=== PATIENT | male | born 1980 | race Hispanic/Latino ===

== ENCOUNTER 2020-04-25 12:40 | Emergency (ER) | payer MEDICARE ==
--- NOTE | 2020-04-25 12:58 | Event Note ---
ED Screening Note ED Screening Note: poor informant via EMS for facial swelling co oral pain states they dont take him to MD-- EMS confirms they don't tend to pt pt cooperative but unable to provide info hx schizophrenia copd severe dental disease- upper/lower; and lesions noted on the roof of mouth I can not visualize well with pt in chair in triage-- need to reeval in room tachycardia and sat 88 on roomair denes sob or cp endorses face and throat pain This initial assessment/diagnostic orders/clinical plan/treatment(s) is/are ramirez bject to change based on patients health status, clinical progression and re- assessment by fellow clinical providers in the ED. Further treatment and workup at subsequent clinical providers discretion. Patient/guardian urged not to elope from the ED as their condition may be serious if not clinically assessed and managed. Initial orders include: labs xray given oxygen saturation
[2020-04-25 13:33] LABS: Basophils # (Auto) 0.1 K/mm3 (0.0-0.1); Basophils % (Auto) 0.6 % (0.0-1.8); Eosinophils # (Auto) 0.4 K/mm3 (0.0-0.4); Eosinophils % (Auto) 3.7 % (0.0-4.3); Hematocrit 47.5 % (35.5-45.6); Hemoglobin 15.4 gm/dl (11.8-15.2); Lymphocytes # (Auto) 1.9 K/mm3 (1.2-5.4); Lymphocytes % (Auto) 16.8 % (13.4-35.0); Mean Corpuscular HGB Conc 33 % (32-34); Mean Corpuscular Volume 95 fl (84-94); Monocytes # (Auto) 1.4 K/mm3 (0.0-0.8); Platelet Count 183 K/mm3 (140-440); Red Blood Count 5.01 M/mm3 (3.65-5.03); Red Cell Distribution Width 15.5 % (13.2-15.2)
[2020-04-25] MEDS ORDERED: SODIUM CHLORIDE 0.9% 1000 ML 1,000 ML IV ONE (14:00)
--- NOTE | 2020-04-25 14:23 | XRay Report ---
CHEST 2 VIEWS INDICATION: cough. COMPARISON: None FINDINGS: Support devices: None. Heart: Within normal limits. Lungs/pleura: No acute air space or interstitial disease. No pneumothorax. Additional findings: None. IMPRESSION: No acute findings. Signer Name: Mario Rowan Jr, MD Signed: 04/25/2020 2:18 PM Workstation Name: [id number]
[2020-04-25 14:27] LABS: Blood Urea Nitrogen 6 mg/dL (9-20); Hemolysis Index 7
[2020-04-25 14:31] LABS: BUN/Creatinine Ratio 9
--- NOTE | 2020-04-25 15:01 | Emergency Department Report ---
<CINDI CRUMP - Last Filed: 04/25/20 18:28> ED General Adult HPI - General Chief complaint: Dental/Oral Stated complaint: MOUTH PAIN Time Seen by Provider: 04/25/20 12:56 - Related Data Allergies Allergy/AdvReac Type Severity Reaction Status Date / Time Sulfa (Sulfonamide Allergy Unknown Verified 04/25/20 18:24 Antibiotics) - ABG Interpretation Ph: 7.34 PCO2: 62 PO2: 49 Bicarbonate: 33 Interpretation: respiratory acidosis (compensated), other (hypoxia) ED Medical Decision Making - Lab Data Result diagrams: 04/25/20 13:08 04/25/20 13:08 - Medical Decision Making 40-year-old male presents to the hospital initially for mouth pain with extension dental caries and was found to be hypoxic and tachycardia. EKG revealed sinus rhythm with heart rate less than 100 without ischemic findings. Chest x-ray unremarkable. D-dimer is negative. ABG reveals a chronic respiratory acidosis with significant room air hypoxia. Patient reports a history of chronic COPD. 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 Patient would need home oxygen arrangement prior to discharge. At time of completion of ED evaluation Case management is not available to arrange for outpatient oxygen for the patient. Possible admission discussed with hospitalist and clinical rx specialist. Since patient does not require admission for anything other than supplemental oxygen arrangement patient will be kept in the ER and provide supplemental oxygen until case management can evaluate patient in the morning for arrangement of home oxygen. If home oxygen cannot be arranged tomorrow and patient requires an additional day in the hospital then should be admitted at that time since he will qualify for inpatient obs admission (2-day hospital stay). Pt placed on 2L Nasal cannula in the ED ED Disposition Clinical Impression: Dental caries, Hypoxia, Smoker, History of schizophrenia, Chronic respiratory acidosis, COPD (chronic obstructive pulmonary disease) Disposition: DC- TO HOME OR SELFCARE Condition: Stable Instructions: Chronic Obstructive Pulmonary Disease (ED) Referrals: KASSY FROST MD [Staff Physician] - 3-5 Days <BRINDA NOBLE - Last Filed: 04/25/20 20:23> ED General Adult HPI - General PUI?: No Source: patient Mode of arrival: Ambulatory Limitations: No Limitations - History of Present Illness Initial comments: 40 YO AA COMES TO ER FROM HIS PERSONAL SNF WITH CO DENTAL PAIN. SPECIFICALLY HIS FRONT LEFT UPPER INCISOR IS CAUSING THE PAIN. IN TRIAGE INITIAL O2 SAT ON ROOM AIR WAS 88. PT ENDORSES INC SOB AND CP; pain is worse with deep breath HR noted to be slightly elevated 110-115 bpm on arrival denies fever or chills PT POOR INFORMANT PT UNABLE TO GIVE ME MUCH HISTORY AND HE HAS BEEN NOT BEEN HERE BEFORE CIG SMOKER DENIES ETOH/DRUGS Pt does NOT KNOW HIS HOME MEDICATIONS AND DOES NOT KNOW IF HE IS ALLERGIC TO ANYTHING. Pt has not been here before and we have no baseline data available -: Gradual, days(s) Severity scale (0 -10): 7 Consistency: intermittent Improves with: none Worsens with: none Associated Symptoms: chest pain Treatments Prior to Arrival: none ED Review of Systems ROS: Stated complaint: MOUTH PAIN Other details as noted in HPI Comment: All other systems reviewed and negative Constitutional: denies: chills, fever ENT: denies: throat pain Respiratory: no symptoms reported, shortness of breath, SOB with exertion, SOB at rest. denies: cough, orthopnea, wheezing Cardiovascular: as per HPI, chest pain (w deep breath) ED Past Medical Hx - Past Medical History Previous Medical History?: Yes Hx Hypertension: Yes Hx Psychiatric Treatment: Yes (SCHIZOPHRENIC/ BIPOLAR) Hx COPD: Yes (per pt) - Surgical History Past Surgical History?: No - Family History Family history: no significant - Social History Smoking Status: Current Every Day Smoker Substance Use Type: None ED Physical Exam - General Limitations: No Limitations General appearance: alert, in no apparent distress - Head Head exam: Present: atraumatic, normocephalic - Eye Eye exam: Present: normal appearance - ENT ENT exam: Present: mucous membranes moist, other (left facial swelling; no tend erness; no abscess; diffuse caries; controlling secretions; voice clear) - Expanded ENT Exam Expanded Ear exam: Present: normal external inspection Mouth exam: Present: other (diffuse cariess). Absent: trismus, muffled voice, tongue normal, tongue elevation Teeth exam: Present: dental caries Throat exam: Positive: normal inspection - Neck Neck exam: Present: normal inspection - Respiratory Respiratory exam: Present: normal lung sounds bilaterally. Absent: respiratory distress - Cardiovascular Cardiovascular Exam: Present: regular rate, normal rhythm. Absent: systolic murmur, diastolic murmur, rubs, gallop - GI/Abdominal GI/Abdominal exam: Present: soft, normal bowel sounds - Rectal Rectal exam: Present: deferred - Extremities Exam Extremities exam: Present: normal inspection - Back Exam Back exam: Present: normal inspection - Neurological Exam Neurological exam: Present: alert, oriented X3 - Psychiatric Psychiatric exam: Present: normal affect, normal mood - Skin Skin exam: Present: warm, dry, intact, normal color. Absent: rash ED Course Vital Signs 04/25/20 04/25/20 04/25/20 12:55 13:08 15:37 Temperature 98.6 F Pulse Rate 111 H 107 H Respiratory 22 20 Rate Blood Pressure Blood Pressure 128/75 [Right] O2 Sat by Pulse 88 91 82 L Oximetry 04/25/20 04/25/20 04/25/20 15:46 16:00 16:04 Temperature Pulse Rate 100 H 105 H Respiratory 18 Rate Blood Pressure 132/77 122/64 Blood Pressure [Right] O2 Sat by Pulse 90 94 94 Oximetry 04/25/20 04/25/20 04/25/20 16:16 16:30 16:46 Temperature Pulse Rate Respiratory 18 Rate Blood Pressure 122/64 122/64 120/71 Blood Pressure [Right] O2 Sat by Pulse 88 90 98 Oximetry 04/25/20 04/25/20 04/25/20 17:00 17:16 17:30 Temperature Pulse Rate 95 H Respiratory Rate Blood Pressure 128/62 119/60 116/71 Blood Pressure [Right] O2 Sat by Pulse 94 96 94 Oximetry 04/25/20 04/25/20 04/25/20 17:46 18:00 18:08 Temperature Pulse Rate 93 H 102 H Respiratory 18 Rate Blood Pressure 107/63 116/49 Blood Pressure [Right] O2 Sat by Pulse 95 93 99 Oximetry 04/25/20 04/25/20 04/25/20 18:16 18:20 18:30 Temperature 98.1 F Pulse Rate 108 H 100 H 98 H Respiratory 18 Rate Blood Pressure 109/44 109/44 122/48 Blood Pressure [Right] O2 Sat by Pulse 93 95 91 Oximetry 04/25/20 18:46 Temperature Pulse Rate 107 H Respiratory Rate Blood Pressure 128/41 Blood Pressure [Right] O2 Sat by Pulse 92 Oximetry - Reevaluation(s) Reevaluation #1: 04/25/20 17:25 CAREGIVER [phone] [facility] SCHIZOPHRENIA SMOKER AND DIPS DAILY HAS BEEN TOLD HE NEEDS HOME O2 BUT HE NEVER HAS GOTTEN IT HAS NO PCP PER CAREGIVER HOME MEDS [facility] PAXIL AND TRAZADONE AT - HE COULD NOT TELL ME DOSES Reevaluation #2: 04/25/[address] CRUMP 04/25/20 18:11 Discussed with admin/WASTEWATER ANALYST LAB ANALYST; pt will be held in ER for case management eval -- given his PaO2 of 48 and no known baseline ED Medical Decision Making - Lab Data Result diagrams: 04/25/20 13:08 04/25/20 13:08 - EKG Data EKG shows normal: sinus rhythm Rate: tachycardia - EKG Data When compared to previous EKG there are: no significant change Interpretation: no acute changes - Radiology Data Radiology results: report reviewed, image reviewed nap - Medical Decision Making 1530 ON REEVAL PT IS TALKING ON PHONE AND IS DRINKING JUICE HE IS CALLING HIS CAREGIVER RN TO RECHECK VS AND PT WILL DISPO Labs 04/25/20 04/25/20 04/25/20 13:08 13:08 13:08 WBC 11.1 H RBC 5.01 Hgb 15.4 H Hct 47.5 H MCV 95 H MCH 31 MCHC 33 RDW 15.5 H Plt Count 183 Lymph % (Auto) 16.8 [place] % (Auto) 13.0 H Eos % (Auto) 3.7 Baso % (Auto) 0.6 Lymph # (Auto) 1.9 [place] # (Auto) 1.4 H Eos # (Auto) 0.4 Baso # (Auto) 0.1 Seg Neutrophils % 65.9 Seg Neutrophils # 7.3 Sodium 142 Potassium 4.2 Chloride 96.8 L Carbon Dioxide 41 H* Anion Gap 8 BUN 6 L Creatinine 0.7 L Estimated GFR > 60 BUN/Creatinine Ratio 9 Glucose 131 H Lactic Acid 1.80 Calcium 9.0 Troponin T 04/25/20 13:08 WBC RBC Hgb Hct MCV MCH MCHC RDW Plt Count Lymph % (Auto) [place] % (Auto) Eos % (Auto) Baso % (Auto) Lymph # (Auto) [place] # (Auto) Eos # (Auto) Baso # (Auto) Seg Neutrophils % Seg Neutrophils # Sodium Potassium Chloride Carbon Dioxide Anion Gap BUN Creatinine Estimated GFR BUN/Creatinine Ratio Glucose Lactic Acid Calcium Troponin T < 0.010 Vital Signs 04/25/20 04/25/20 12:55 13:08 Temperature 98.6 F Pulse Rate 111 H 107 H Respiratory 22 20 Rate Blood Pressure 128/75 [Right] O2 Sat by Pulse 88 91 Oximetry labs noted ekg noted xray noted blood cultures pending lactate normal ddimer normal abg noted- staffed with Dr Crump. Discussed with [facility]. Discussed case with Chief Hospital Administrator/Finance- will hold pt in ER Caregiver has been updated on pt stay in ER and needing oxygen. PLAN OVERNIGHT HOLD IN FAST TRACK CALL SOCIAL SERVICE FIRST THING IN AM FOR OXYGEN WHEN PT GETS OXYGEN HE CAN DC HOME WITH TREATMENT FOR HIS DENTAL INFECTION AND FOLLOW UP WITH PCP AND DMD. AM Provider will just need to updated discharge packet, print and educate patient (once oxygen is obtained) - Differential Diagnosis sign dental caries; ro uri/sepsis Critical care attestation.: If time is entered above; I have spent that time in minutes in the direct care of this critically ill patient, excluding procedure time. ED Disposition Is pt being admited?: Yes Does the pt Need Aspirin: No Time of Disposition: 17:21
[2020-04-25] MEDS ORDERED: ACETAMINOPHEN 500 MG TAB PO ONE (15:28)
[2020-04-25] MEDS: CLINDAMYCIN 300 MG CAP PO SCH (20:01)
[2020-04-26] MEDS: CLINDAMYCIN 300 MG CAP PO SCH (04:17)
[2020-04-26 04:23] VITALS: BP 125/82
== END 2020-04-26 11:14 | disposition home or self-care (01) ==
LOC: ED 12:40
DX: K02.9 Dental caries, unspecified (principal); R09.02 Hypoxemia; E87.2 Acidosis; I10 Essential (primary) hypertension; F20.9 Schizophrenia, unspecified; J44.9 Chronic obstructive pulmonary disease, unspecified; F17.200 Nicotine dependence, unspecified, uncomplicated; Z88.2 Allergy status to sulfonamides
CPT/HCPCS: 36415; 71046; 80048; 82140; 82805; 84484; 85025; 85379; 87040; 93005; 96365; 99284; J7030

== ENCOUNTER 2020-06-03 22:28 | Emergency (ER) | payer MEDICARE ==
[2020-06-03 22:50] VITALS: BP 149/79
--- NOTE | 2020-06-04 01:28 | XRay Report ---
CHEST PA AND LATERAL VIEWS INDICATION: hypoxia. COMPARISON: 04/25/2020 FINDINGS: Support devices: None. Heart: Within normal limits. Lungs/Pleura: No acute pulmonary or pleural findings. IMPRESSION: 1. No acute findings. Signer Name: Micha Washington MD Signed: 06/04/2020 1:23 AM Workstation Name: [id number]
[2020-06-04 01:51] LABS: Basophils # (Auto) 0.1 K/mm3 (0.0-0.1); Basophils % (Auto) 0.9 % (0.0-1.8); Eosinophils # (Auto) 0.8 K/mm3 (0.0-0.4); Eosinophils % (Auto) 6.5 % (0.0-4.3); Hematocrit 49.6 % (35.5-45.6); Hemoglobin 16.3 gm/dl (11.8-15.2); Lymphocytes # (Auto) 3.5 K/mm3 (1.2-5.4); Lymphocytes % (Auto) 27.7 % (13.4-35.0); Mean Corpuscular HGB Conc 33 % (32-34); Mean Corpuscular Volume 94 fl (84-94); Monocytes # (Auto) 1.2 K/mm3 (0.0-0.8); Monocytes % (Auto) 9.5 % (0.0-7.3); Platelet Count 241 K/mm3 (140-440); Red Blood Count 5.29 M/mm3 (3.65-5.03); Red Cell Distribution Width 15.7 % (13.2-15.2)
[2020-06-04 02:12] LABS: Alanine Aminotransferase 21 units/L (7-56); Albumin 4.5 g/dL (3.9-5); BUN/Creatinine Ratio 11; Blood Urea Nitrogen 10 mg/dL (9-20); Calcium 8.8 mg/dL (8.4-10.2); Hemolysis Index 4
== END 2020-06-04 06:34 ==
LOC: ED 22:28
DX: R06.00 Dyspnea, unspecified (principal); Z53.21 Procedure and treatment not carried out due to patient leaving prior to being seen by health care provider
CPT/HCPCS: 36415; 71046; 80053; 83880; 84484; 85025; 93005

== ENCOUNTER 2020-07-14 17:06 | Inpatient (IN) | payer MEDICARE ==
--- NOTE | 2020-07-14 19:27 | XRay Report ---
CHEST 2 VIEWS INDICATION / CLINICAL INFORMATION: SOB. COMPARISON: 06/04/2020 FINDINGS: SUPPORT DEVICES: None. HEART / MEDIASTINUM: No significant abnormality. LUNGS / PLEURA: No significant pulmonary or pleural abnormality. No pneumothorax. ADDITIONAL FINDINGS: No significant additional findings. IMPRESSION: 1. No acute findings. Signer Name: Say Jeffers MD Signed: 07/14/2020 7:23 PM Workstation Name: [id number]
[2020-07-14] MEDS ORDERED: IPRATROPIUM/ALBUTEROL SULFATE 3 ML AMPUL.NEB IH ONE (20:13)
--- NOTE | 2020-07-14 20:15 | Event Note ---
ED Screening Note Date of service: 07/14/20 Time: 20:13 ED Screening Note: 40 year old male with pmhx of COPD currently on chronic home O2 presents to ED with c/o increased SOB x 2 days. He states he has had to increase his home O2 from 2L to 3L. He reports mild cough and wheezing. He has been using his neb tx but only once per day. This initial assessment/diagnostic orders/clinical plan/treatment(s) is/are subject to change based on patients health status, clinical progression and re-assessment by fellow clinical providers in the ED. Further treatment and workup at subsequent clinical providers discretion. Patient/guardian urged not to elope from the ED as their condition may be serious if not clinically assessed and managed. Initial orders include: Dyspnea order set
[2020-07-14 21:31] LABS: Basophils # (Auto) 0.1 K/mm3 (0.0-0.1); Basophils % (Auto) 0.5 % (0.0-1.8); Eosinophils # (Auto) 0.4 K/mm3 (0.0-0.4); Eosinophils % (Auto) 2.9 % (0.0-4.3); Hematocrit 47.1 % (35.5-45.6); Hemoglobin 15.1 gm/dl (11.8-15.2); Lymphocytes # (Auto) 2.7 K/mm3 (1.2-5.4); Mean Corpuscular HGB Conc 32 % (32-34); Mean Corpuscular Volume 94 fl (84-94); Monocytes # (Auto) 1.1 K/mm3 (0.0-0.8); Monocytes % (Auto) 8.1 % (0.0-7.3); Platelet Count 197 K/mm3 (140-440); Red Cell Distribution Width 15.8 % (13.2-15.2)
[2020-07-14 21:55] LABS: Alanine Aminotransferase 20 units/L (7-56); Albumin 4.4 g/dL (3.9-5); Blood Urea Nitrogen 12 mg/dL (9-20); Calcium 9.1 mg/dL (8.4-10.2); Hemolysis Index 5
[2020-07-14 22:09] LABS: BUN/Creatinine Ratio 17
[2020-07-14] MEDS ORDERED: methylPREDNISolone Sod Succinate 125 MG/2 ML INJ IV ONE (22:16)
[2020-07-14] MEDS ORDERED: MAGNESIUM SULFATE 2 GM/50 ML BAG IV ONE (22:16)
--- NOTE | 2020-07-14 22:30 | Emergency Department Report ---
HPI - General Chief Complaint: Dyspnea/Respdistress Time Seen by Provider: 07/14/20 22:07 - HPI HPI: This is a 40-year-old male who presents to the emergency department with a complaint of a 2-day history of shortness of breath. The patient says that he had a low oxygen saturation at home, down to 82%, while wearing his supplemental oxygen. The patient has a history of COPD and is on 2 L via nasal cannula at home. He has some associated cough, wheezing and subjective fever. The patient presented through triage and did not have supplemental oxygen was found to have a room air oxygen saturation of 85%. He is a former smoker but still continues to dip tobacco. He denies any chest pain, lower extremity swelling, nausea, vomiting, back pain or diaphoresis. No recent travel or sick contacts at home. No known exposure to anyone with COVID-19. I saw this patient last month for similar symptoms and he required BiPAP and hospitaliza tion at that time. He has a primary care physician, Dr. Jama, but has not seen them regarding his symptoms. He denies having a special education preschool teacher. He also has a history of schizophrenia and bipolar disorder. He is not making any complaints of suicidal or homicidal ideations and does not appear to be exhibiting any acute psychosis. ED Past Medical Hx - Past Medical History Hx Hypertension: Yes Hx Congestive Heart Failure: No Hx Diabetes: No Hx Psychiatric Treatment: Yes (SCHIZOPHRENIC/ BIPOLAR) Hx Asthma: No Hx COPD: Yes - Social History Smoking Status: Current Every Day Smoker - Medications Home Medications: Home Medications Medication Instructions Recorded Confirmed Last Taken Type PARoxetine [Paxil] 10 mg PO DAILY 06/08/20 06/08/20 06/03/20 History risperiDONE 3 mg PO HS 06/08/20 06/08/20 06/03/20 History risperiDONE [RisperDAL] 1 mg PO DAILY 06/08/20 06/08/20 06/03/20 History traZODone [Desyrel] 100 mg PO QHS 06/08/20 06/08/20 06/03/20 History predniSONE 10 mg PO .TAPER #48 tab 06/09/20 Unknown Rx ED Review of Systems ROS: Stated complaint: NADEEN Other details as noted in HPI Comment: All other systems reviewed and negative Constitutional: denies: chills, fever Eyes: denies: eye pain, vision change ENT: denies: ear pain, throat pain Respiratory: cough, shortness of breath, wheezing Cardiovascular: denies: chest pain, edema Gastrointestinal: denies: abdominal pain, vomiting Genitourinary: denies: dysuria, discharge Musculoskeletal: denies: back pain, arthralgia Skin: denies: rash, lesions Neurological: denies: headache, weakness Physical Exam - Physical Exam Vital Signs: Vital Signs 07/14/20 07/14/20 19:02 21:02 Temperature 98.3 F Pulse Rate 105 H Pulse Rate [ 92 H Posterior Bilateral Throughout] Respiratory 20 Rate Respiratory 18 Rate [Posterior Bilateral Throughout] Blood Pressure 135/90 O2 Sat by Pulse 85 Oximetry Physical Exam: GENERAL: The patient is well-developed well-nourished. HENT: Normocephalic. Atraumatic. Patient has moist mucous membranes. EYES: Extraocular motions are intact. NECK: Supple. Trachea is midline. CHEST/LUNGS: Mild to moderate wheezing throughout the chest. There is tachyp lucas. No cough heard during examination. T HEART/CARDIOVASCULAR: Regular. There is mild tachycardia. There is no murmur. ABDOMEN: Abdomen is soft, nontender. Patient has normal bowel sounds. There is no abdominal distention. SKIN: Skin is warm and dry. NEURO: The patient is awake, alert, and oriented. The patient is cooperative. The patient has no focal neurologic deficits. Normal speech. MUSCULOSKELETAL: There is no tenderness or deformity. There is no limitation range of motion. ED Course Vital Signs 07/14/20 07/14/20 19:02 21:02 Temperature 98.3 F Pulse Rate 105 H Pulse Rate [ 92 H Posterior Bilateral Throughout] Respiratory 20 Rate Respiratory 18 Rate [Posterior Bilateral Throughout] Blood Pressure 135/90 O2 Sat by Pulse 85 Oximetry - ABG Interpretation Ph: 7.366 PCO2: 69 PO2: 57 Bicarbonate: 38 Interpretation: respiratory acidosis, metabolic alkalosis ED Medical Decision Making - Lab Data Result diagrams: 07/14/20 21:13 07/14/20 21:13 Lab Results 07/14/20 07/14/20 07/14/20 Range/Units 21:13 21:13 21:13 WBC 13.7 H (4.5-11.0) K/mm3 RBC 5.00 (3.65-5.03) M/mm3 Hgb 15.1 (11.8-15.2) gm/dl Hct 47.1 H (35.5-45.6) % MCV 94 (84-94) fl MCH 30 (28-32) pg MCHC 32 (32-34) % RDW 15.8 H (13.2-15.2) % Plt Count 197 (140-440) K/mm3 Lymph % (Auto) 20.0 (13.4-35.0) % [place] % (Auto) 8.1 H (0.0-7.3) % Eos % (Auto) 2.9 (0.0-4.3) % Baso % (Auto) 0.5 (0.0-1.8) % Lymph # (Auto) 2.7 (1.2-5.4) K/mm3 [place] # (Auto) 1.1 H (0.0-0.8) K/mm3 Eos # (Auto) 0.4 (0.0-0.4) K/mm3 Baso # (Auto) 0.1 (0.0-0.1) K/mm3 Seg Neutrophils % 68.5 (40.0-70.0) % Seg Neutrophils # 9.3 H (1.8-7.7) K/mm3 ABG pH (7.350-7.450) pH Units ABG pCO2 mm Hg ABG pO2 (80.0-90.0) mm Hg ABG HCO3 (20.0-26.0) mmol/L ABG O2 Saturation (95.0-99.0) % ABG O2 Content (0.0-44) ABG Base Excess (-2.0-3.0) mmol/L ABG Hemoglobin (14.0-18.0) gm/dl ABG Carboxyhemoglobin (0.0-5.0) % ABG Methemoglobin (0.0-1.5) % Oxyhemoglobin (95.0-99.0) % FiO2 % Sodium 143 (137-145) mmol/L Potassium 4.6 (3.6-5.0) mmol/L Chloride 96.2 L (98-107) mmol/L Carbon Dioxide 40 H (22-30) mmol/L Anion Gap 11 mmol/L BUN 12 (9-20) mg/dL Creatinine 0.7 L (0.8-1.3) mg/dL Estimated GFR > 60 ml/min BUN/Creatinine Ratio 17 % Glucose 98 (75-100) mg/dL Calcium 9.1 (8.4-10.2) mg/dL Magnesium 2.20 (1.7-2.3) mg/dL Total Bilirubin 0.20 (0.1-1.2) mg/dL AST 16 (5-40) units/L ALT 20 (7-56) units/L Alkaline Phosphatase 109 (35-129) units/L Troponin T < 0.010 (0.00-0.029) ng/mL Total Protein 7.0 (6.3-8.2) g/dL Albumin 4.4 (3.9-5) g/dL Albumin/Globulin Ratio 1.7 % // Range/Units 22:35 WBC (4.5-11.0) K/mm3 RBC (3.65-5.03) M/mm3 Hgb (11.8-15.2) gm/dl Hct (35.5-45.6) % MCV (84-94) fl MCH (28-32) pg MCHC (32-34) % RDW (13.2-15.2) % Plt Count (140-440) K/mm3 Lymph % (Auto) (13.4-35.0) % [place] % (Auto) (0.0-7.3) % Eos % (Auto) (0.0-4.3) % Baso % (Auto) (0.0-1.8) % Lymph # (Auto) (1.2-5.4) K/mm3 [place] # (Auto) (0.0-0.8) K/mm3 Eos # (Auto) (0.0-0.4) K/mm3 Baso # (Auto) (0.0-0.1) K/mm3 Seg Neutrophils % (40.0-70.0) % Seg Neutrophils # (1.8-7.7) K/mm3 ABG pH 7.366 (7.350-7.450) pH Units ABG pCO2 69.1 mm Hg ABG pO2 57.7 L (80.0-90.0) mm Hg ABG HCO3 38.7 H (20.0-26.0) mmol/L ABG O2 Saturation 91.9 L (95.0-99.0) % ABG O2 Content 18.2 (0.0-44) ABG Base Excess 10.2 H (-2.0-3.0) mmol/L ABG Hemoglobin 14.8 (14.0-18.0) gm/dl ABG Carboxyhemoglobin 4.4 (0.0-5.0) % ABG Methemoglobin 0.5 (0.0-1.5) % Oxyhemoglobin 87.5 L (95.0-99.0) % FiO2 28 % Sodium (137-145) mmol/L Potassium (3.6-5.0) mmol/L Chloride (98-107) mmol/L Carbon Dioxide (22-30) mmol/L Anion Gap mmol/L BUN (9-20) mg/dL Creatinine (0.8-1.3) mg/dL Estimated GFR ml/min BUN/Creatinine Ratio % Glucose (75-100) mg/dL Calcium (8.4-10.2) mg/dL Magnesium (1.7-2.3) mg/dL Total Bilirubin (0.1-1.2) mg/dL AST (5-40) units/L ALT (7-56) units/L Alkaline Phosphatase (35-129) units/L Troponin T (0.00-0.029) ng/mL Total Protein (6.3-8.2) g/dL Albumin (3.9-5) g/dL Albumin/Globulin Ratio % - EKG Data -: EKG Interpreted by [place] EKG shows normal: sinus rhythm, axis, intervals, QRS complexes, ST-T waves Rate: normal - EKG Data When compared to previous EKG there are: no significant change Interpretation: normal EKG, unchanged when compared t (06/04/20) - Radiology Data Radiology results: image reviewed interpreted by me: Chest x-ray does not show any acute process. There are no pleural effusions, obvious pneumonia and there is no pneumothorax. No widened mediastinum. - Medical Decision Making This patient presents to the emergency department with complaint of a 2-day history of shortness of breath. He had a oxygen saturation at home of 82% on 2 L via nasal cannula. He was also in the mid to low 80s here initially in triage but was not on supplemental oxygen at that time. On examination the patient has some tachypnea and bronchospasm. He does not appear to require BiPAP at this time but is requiring increased oxygen supplementation by nasal cannula. He is 2 L oxygen dependent at home and currently is on 4 L in order to maintain his oxygen saturation in the mid to low 90s. ABG shows hypercapnia and hypoxemia. His laboratory studies are mostly unremarkable except for increased CO2. Chest x-ray does not show any pneumonia, pleural effusions, pneumothorax, wide mediastinum, or any other acute process. Patient will be admitted to the hospital for further evaluation and treatment and was accepted for admission by the hospitalist, Dr. Mckeon. Critical Care Time: Yes Critical care time in (mins) excluding proc time.: 35 Critical care attestation.: If time is entered above; I have spent that time in minutes in the direct care of this critically ill patient, excluding procedure time. Critical care time was spent on this patient in doing his initial evaluation, multiple reevaluations, ordering and interpretation of labs and imaging, treatment of his hypercapnia and hypoxemia with increased supplemental oxygen, IV Solu-Medrol and magnesium, and multiple breathing treatments. Critical Care Time: 35 minutes ED Disposition Clinical Impression: Hypercapnia, COPD exacerbation, Acute and chronic respiratory failure with hypercapnia, Hypoxemia Disposition: OP ADMIT IP TO THIS HOSP Is pt being admited?: Yes Condition: Serious Time of Disposition: 22:57
[2020-07-14 22:47] LABS: ABG Base Excess 10.2 mmol/L (-2.0-3.0); ABG HCO3 38.7 mmol/L (20.0-26.0); ABG Methemoglobin 0.5 % (0.0-1.5); ABG Oxygen Saturation 91.9 % (95.0-99.0); ABG PCO2 69.1 mm Hg; ABG PH 7.366 pH Units (7.350-7.450); ABG PO2 57.7 mm Hg (80.0-90.0)
[2020-07-14] MEDS ORDERED: ALBUTEROL 2.5 MG/3 ML NEBU IH ONE (22:48)
[2020-07-14] MEDS ORDERED: ALBUTEROL 2.5 MG/3 ML NEBU IH PRN (23:07)
[2020-07-14] MEDS ORDERED: ACETAMINOPHEN 325 MG TAB PO PRN (23:07)
[2020-07-14] MEDS ORDERED: ONDANSETRON 4 MG/2 ML INJ IV PRN (23:07)
[2020-07-14] MEDS ORDERED: hydrALAZINE 20 MG/1 ML INJ IV PRN (23:10)
--- NOTE | 2020-07-14 23:16 | History and Physical Report ---
History of Present Illness Date of examination: 07/14/20 Date of admission: 07/14/2020 Chief complaint: Dyspnea Respiratory distress History of present illness: 40-year-old male with past medical history of COPD on 2 L of home oxygen, schizophrenia and bipolar disorder was brought to the emergency department with a complaint of a 2-day history of shortness of breath. The patient says that he had a low oxygen saturation at home, down to 82%, while wearing his supplemental oxygen. He has some associated cough, wheezing and subjective fever. The patient presented through triage and did not have supplemental oxygen was found to have a room air oxygen saturation of 85%. He is a former smoker but still continues to dip tobacco. He denies any chest pain, lower extremity swelling, nausea, vomiting, back pain or diaphoresis. No recent travel or sick contacts at home. No known exposure to anyone with COVID- 19. In the emergency room patient is found to have acute hypoxic respiratory failure and COPD exacerbation Past History Past Medical History: COPD, other (Schizophrenia and bipolar disorder) Medications and Allergies Allergies Allergy/AdvReac Type Severity Reaction Status Date / Time Sulfa (Sulfonamide Allergy Unknown Verified 04/25/20 18:24 Antibiotics) Home Medications Medication Instructions Recorded Confirmed Last Taken Type PARoxetine [Paxil] 10 mg PO DAILY 06/08/20 06/08/20 06/03/20 History risperiDONE 3 mg PO HS 06/08/20 06/08/20 06/03/20 History risperiDONE [RisperDAL] 1 mg PO DAILY 06/08/20 06/08/20 06/03/20 History traZODone [Desyrel] 100 mg PO QHS 06/08/20 06/08/20 06/03/20 History predniSONE 10 mg PO .TAPER #48 tab 06/09/20 Unknown Rx Review of Systems Respiratory: cough, shortness of breath, dyspnea on exertion, wheezing Exam - Constitutional Vitals: Temp Pulse Resp BP Pulse Ox 98.3 F 92 H 18 135/90 85 07/14/20 19:02 07/14/20 21:02 07/14/20 21:02 07/14/20 19:02 07/14/20 19:02 General appearance: Present: no acute distress, well-nourished - EENT Eyes: Present: PERRL ENT: hearing intact, clear oral mucosa - Neck Neck: Present: supple, normal ROM - Respiratory Respiratory effort: normal Respiratory: bilateral: wheezing - Cardiovascular Heart Sounds: Present: S1 & S2. Absent: rub, click - Extremities Extremities: pulses symmetrical, No edema Peripheral Pulses: within normal limits - Abdominal General gastrointestinal: Present: soft, non-tender, non-distended, normal bowel sounds Male genitourinary: Present: normal - Integumentary Integumentary: Present: clear, warm, dry - Musculoskeletal Musculoskeletal: gait normal, strength equal bilaterally - Psychiatric Psychiatric: appropriate mood/affect, intact judgment & insight - Neurologic Neurologic: CNII-XII intact, moves all extremities HEART Score - HEART Score Troponin: Troponin T < 0.010 ng/mL (0.00-0.029) 07/14/20 21:13 Results - Labs CBC & Chem 7: 07/14/20 21:13 07/14/20 21:13 Labs: Laboratory Last Values WBC 13.7 K/mm3 (4.5-11.0) H 07/14/20 21:13 RBC 5.00 M/mm3 (3.65-5.03) 07/14/20 21:13 Hgb 15.1 gm/dl (11.8-15.2) 07/14/20 21:13 Hct 47.1 % (35.5-45.6) H 07/14/20 21:13 MCV 94 fl (84-94) 07/14/20 21:13 MCH 30 pg (28-32) 07/14/20 21:13 MCHC 32 % (32-34) 07/14/20 21:13 RDW 15.8 % (13.2-15.2) H 07/14/20 21:13 Plt Count 197 K/mm3 (140-440) 07/14/20 21:13 Lymph % (Auto) 20.0 % (13.4-35.0) 07/14/20 21:13 [place] % (Auto) 8.1 % (0.0-7.3) H 07/14/20 21:13 Eos % (Auto) 2.9 % (0.0-4.3) 07/14/20 21:13 Baso % (Auto) 0.5 % (0.0-1.8) 07/14/20 21:13 Lymph # (Auto) 2.7 K/mm3 (1.2-5.4) 07/14/20 21:13 [place] # (Auto) 1.1 K/mm3 (0.0-0.8) H 07/14/20 21:13 Eos # (Auto) 0.4 K/mm3 (0.0-0.4) 07/14/20 21:13 Baso # (Auto) 0.1 K/mm3 (0.0-0.1) 07/14/20 21:13 Seg Neutrophils % 68.5 % (40.0-70.0) 07/14/20 21:13 Seg Neutrophils # 9.3 K/mm3 (1.8-7.7) H 07/14/20 21:13 ABG pH 7.366 pH Units (7.350-7.450) 07/14/20 22:35 ABG pCO2 69.1 mm Hg 07/14/20 22:35 ABG pO2 57.7 mm Hg (80.0-90.0) L 07/14/20 22:35 ABG HCO3 38.7 mmol/L (20.0-26.0) H 07/14/20 22:35 ABG O2 Saturation 91.9 % (95.0-99.0) L 07/14/20 22:35 ABG O2 Content 18.2 (0.0-44) 07/14/20 22:35 ABG Base Excess 10.2 mmol/L (-2.0-3.0) H 07/14/20 22:35 ABG Hemoglobin 14.8 gm/dl (14.0-18.0) 07/14/20 22:35 ABG Carboxyhemoglobin 4.4 % (0.0-5.0) 07/14/20 22:35 ABG Methemoglobin 0.5 % (0.0-1.5) 07/14/20 22:35 Oxyhemoglobin 87.5 % (95.0-99.0) L 07/14/20 22:35 FiO2 28 % 07/14/20 22:35 Sodium 143 mmol/L (137-145) 07/14/20 21:13 Potassium 4.6 mmol/L (3.6-5.0) 07/14/20 21:13 Chloride 96.2 mmol/L (98-107) L 07/14/20 21:13 Carbon Dioxide 40 mmol/L (22-30) H 07/14/20 21:13 Anion Gap 11 mmol/L 07/14/20 21:13 BUN 12 mg/dL (9-20) 07/14/20 21:13 Creatinine 0.7 mg/dL (0.8-1.3) L 07/14/20 21:13 Estimated GFR > 60 ml/min 07/14/20 21:13 BUN/Creatinine Ratio 17 % 07/14/20 21:13 Glucose 98 mg/dL (75-100) 07/14/20 21:13 Calcium 9.1 mg/dL (8.4-10.2) 07/14/20 21:13 Magnesium 2.20 mg/dL (1.7-2.3) 07/14/20 21:13 Total Bilirubin 0.20 mg/dL (0.1-1.2) 07/14/20 21:13 AST 16 units/L (5-40) 07/14/20 21:13 ALT 20 units/L (7-56) 07/14/20 21:13 Alkaline Phosphatase 109 units/L (35-129) 07/14/20 21:13 Troponin T < 0.010 ng/mL (0.00-0.029) 07/14/20 21:13 Total Protein 7.0 g/dL (6.3-8.2) 07/14/20 21:13 Albumin 4.4 g/dL (3.9-5) 07/14/20 21:13 Albumin/Globulin Ratio 1.7 % 07/14/20 21:13 - Imaging and Cardiology Chest x-ray: report reviewed Assessment and Plan VTE prophylaxis?: Chemical Plan of care discussed with patient/family: Yes - Patient Problems (1) Acute and chronic respiratory failure with hypercapnia Current Visit: Yes Status: Acute Plan to address problem: Admit the patient to the medical floor. Put the patient on BiPAP. DuoNeb by nebulizer every 4 hours as needed. Solu-Medrol 40 mg IV every 6 hours. Zithrom ax to 50 mg p.o. daily. Consult pulmonary if needed (2) COPD exacerbation Current Visit: Yes Status: Acute Plan to address problem: Put the patient on BiPAP. DuoNeb by nebulizer every 4 hours as needed. Solu- Medrol 40 mg IV every 6 hours. Zithromax to 50 mg p.o. daily. Consult pulmonary if needed (3) Hypercapnia Current Visit: Yes Status: Acute Plan to address problem: Put the patient on BiPAP. DuoNeb by nebulizer every 4 hours as needed. Solu- Medrol 40 mg IV every 6 hours. Zithromax to 50 mg p.o. daily. Consult pulmonary if needed (4) Schizophrenia Current Visit: Yes Status: Acute Plan to address problem: Stable. We will continue the home medication. Outpatient follow-up with psychiatry (5) Tobacco abuse Current Visit: Yes Status: Acute Plan to address problem: Patient counseled regarding quitting smoking. We will put the nicotine patch if needed (6) DVT prophylaxis Current Visit: Yes Status: Acute Plan to address problem: Heparin 5000 units subcu every 8 hours for DVT prophylaxis. Protonix 40 mg p.o. daily for GI prophylaxis. Patient is a full code
[2020-07-15] MEDS: methylPREDNISolone Sod Succinate 40 MG/1 ML INJ IV SCH ×5 (00:19→23:15)
[2020-07-15] MEDS: IPRATROPIUM/ALBUTEROL SULFATE 3 ML AMPUL.NEB IH SCH ×4 (02:24→20:15)
[2020-07-15] MEDS: HEPARIN 5,000 UNIT/1 ML VIAL SUB-Q SCH ×3 (06:14→21:26)
[2020-07-15 06:49] LABS: Hematocrit 47.5 % (35.5-45.6); Hemoglobin 15.5 gm/dl (11.8-15.2); Mean Corpuscular HGB Conc 33 % (32-34); Mean Corpuscular Volume 94 fl (84-94); Platelet Count 201 K/mm3 (140-440); Red Blood Count 5.07 M/mm3 (3.65-5.03); Red Cell Distribution Width 16.3 % (13.2-15.2)
[2020-07-15 07:09] LABS: BUN/Creatinine Ratio 15; Blood Urea Nitrogen 12 mg/dL (9-20); Calcium 8.6 mg/dL (8.4-10.2); Hemolysis Index 5
[2020-07-15 09:29] LABS: Eosinophils % (Auto) 0.1 % (0.0-4.3); Monocytes # (Auto) 0.1 K/mm3 (0.0-0.8); Monocytes % (Auto) 0.7 % (0.0-7.3)
[2020-07-15 10:04] LABS: Anisocytosis Few; Macrocytosis Few; Total Cells Counted 100
[2020-07-15 10:05] LABS: Platelet Estimate Consistent w Auto; Stomatocytes Few
[2020-07-15] MEDS: risperiDONE 1 MG TAB PO SCH (12:18)
[2020-07-15] MEDS: PARoxetine 10 MG TAB PO SCH (12:18)
[2020-07-15] MEDS: FAMOTIDINE 20 MG TAB PO SCH ×2 (12:18→21:26)
[2020-07-15] MEDS ORDERED: DEXTROSE 50% IN WATER (25GM) 50 ML SYRINGE IV PRN (12:49)
--- NOTE | 2020-07-15 12:51 | Progress Note ---
Assessment and Plan Assessment and plan: 40-year-old male with past medical history of COPD on 2 L of home oxygen, schizophrenia and bipolar disorder was brought to the emergency department with a complaint of a 2-day history of shortness of breath. The patient says that he had a low oxygen saturation at home, down to 82%, while wearing his supplemental oxygen. He has some associated cough, wheezing and subjective fever. The patient presented through triage and did not have supplemental oxygen was found to have a room air oxygen saturation of 85%. He is a former smoker but still continues to dip tobacco. He denies any chest pain, lower extremity swelling, nausea, vomiting, back pain or diaphoresis. No recent travel or sick contacts at home. No known exposure to anyone with COVID- 19. In the emergency room patient is found to have acute hypoxic respiratory failure and COPD exacerbation 07/15: Patient showing some clinical improvement. Will rule out COVID-19 considering severe hypoxia. This is likely that the patient not using his oxygen or run out of medications. He was not quite clear. He also requested f or psych consult will place that consult. We will obtain pulmonary evaluation and anticipate discharge in a few days if he continues to improve. I did have extensive discussion about tobacco use and need to quit 15 minutes spent on counseling. Also another 20 minutes spent on counseling for general preventive health care including obesity. Patient verbalized understanding. Outpatient BELÉN study recommended. (1) Acute and chronic respiratory failure with hypercapnia Current Visit: Yes Status: Acute Plan to address problem: Admit the patient to the medical floor. Put the patient on BiPAP. DuoNeb by nebulizer every 4 hours as needed. Solu-Medrol 40 mg IV every 6 hours. Zithromax to 50 mg p.o. daily. Consult pulmonary if needed (2) COPD exacerbation Current Visit: Yes Status: Acute Plan to address problem: Put the patient on BiPAP. DuoNeb by nebulizer every 4 hours as needed. Solu- Medrol 40 mg IV every 6 hours. Zithromax to 50 mg p.o. daily. Consult pulmonary if needed (3) Hypercapnia Current Visit: Yes Status: Acute Plan to address problem: Put the patient on BiPAP. DuoNeb by nebulizer every 4 hours as needed. Solu- Medrol 40 mg IV every 6 hours. Zithromax to 50 mg p.o. daily. Consult pulmonary if needed (4) Schizophrenia Current Visit: Yes Status: Acute Plan to address problem: Stable. We will continue the home medication. Outpatient follow-up with psychiatry (5) Tobacco abuse Current Visit: Yes Status: Acute Plan to address problem: Patient counseled regarding quitting smoking. We will put the nicotine patch if needed (6) morbid obesity (7) DVT prophylaxis Current Visit: Yes Status: Acute Plan to address problem: Heparin 5000 units subcu every 8 hours for DVT prophylaxis. Protonix 40 mg p.o. daily for GI prophylaxis. Patient is a full code History Interval history: Patient seen and examined clinically stable still on oxygen states that he uses home oxygen. He believes he ran out of some of his medication but not sure. He also tells me that he had his Covid vaccine was not sure which ones he had. He is requesting to see the psychiatrist. He denies any chest pain Hospitalist Physical - Physical exam Narrative exam: General appearance: Present: Mild respiratory distress close to but not quite at baseline well-nourished, morbidly obese - EENT Eyes: Present: PERRL ENT: hearing intact, clear oral mucosa - Neck Neck: Present: supple, normal ROM - Respiratory Respiratory effort: normal Respiratory: bilateral: wheezing - Cardiovascular Heart Sounds: Present: S1 & S2. Absent: rub, click - Extremities Extremities: pulses symmetrical, No edema Peripheral Pulses: within normal limits - Abdominal General gastrointestinal: Present: soft, non-tender, non-distended, normal bowel sounds, large pannus Male genitourinary: Present: normal - Integumentary Integumentary: Present: clear, warm, dry - Musculoskeletal Musculoskeletal: gait normal, strength equal bilaterally - Psychiatric Psychiatric: appropriate mood/affect, intact judgment & insight - Neurologic Neurologic: CNII-XII intact, moves all extremities - Constitutional Vitals: Temp Pulse Resp BP Pulse Ox 98.2 F 101 H 20 114/71 93 07/15/20 05:11 07/15/20 08:26 07/15/20 08:26 07/15/20 05:11 07/15/20 08:26 General appearance: Present: no acute distress, well-nourished HEART Score - HEART Score Troponin: Troponin T < 0.010 ng/mL (0.00-0.029) 07/14/20 21:13 Results - Labs CBC & Chem 7: 07/15/20 06:07 07/15/20 06:07 Labs: Laboratory Last Values WBC 11.4 K/mm3 (4.5-11.0) H 07/15/20 06:07 RBC 5.07 M/mm3 (3.65-5.03) H 07/15/20 06:07 Hgb 15.5 gm/dl (11.8-15.2) H 07/15/20 06:07 Hct 47.5 % (35.5-45.6) H 07/15/20 06:07 MCV 94 fl (84-94) 07/15/20 06:07 MCH 31 pg (28-32) 07/15/20 06:07 MCHC 33 % (32-34) 07/15/20 06:07 RDW 16.3 % (13.2-15.2) H 07/15/20 06:07 Plt Count 201 K/mm3 (140-440) 07/15/20 06:07 Lymph % (Auto) 20.0 % (13.4-35.0) 07/14/20 21:13 [place] % (Auto) 0.7 % (0.0-7.3) 07/15/20 06:07 Eos % (Auto) 0.1 % (0.0-4.3) 07/15/20 06:07 Baso % (Auto) 0.5 % (0.0-1.8) 07/14/20 21:13 Lymph # (Auto) 2.7 K/mm3 (1.2-5.4) 07/14/20 21:13 [place] # (Auto) 0.1 K/mm3 (0.0-0.8) 07/15/20 06:07 Eos # (Auto) 0.0 K/mm3 (0.0-0.4) 07/15/20 06:07 Baso # (Auto) 0.0 K/mm3 (0.0-0.1) 07/15/20 06:07 Add Manual Diff Complete 07/15/20 06:07 Total Counted 100 07/15/20 06:07 Seg Neutrophils % Process Line Operator 07/15/20 06:07 Seg Neuts % (Manual) 95.0 % (40.0-70.0) H 07/15/20 06:07 Lymphocytes % (Manual) 4.0 % (13.4-35.0) L 07/15/20 06:07 Monocytes % (Manual) 1.0 % (0.0-7.3) 07/15/20 06:07 Nucleated RBC % Not Reportable 07/15/20 06:07 Seg Neutrophils # 10.3 K/mm3 (1.8-7.7) H 07/15/20 06:07 Seg Neutrophils # Man 10.8 K/mm3 (1.8-7.7) H 07/15/20 06:07 Band Neutrophils # 0.0 K/mm3 07/15/20 06:07 Lymphocytes # (Manual) 0.5 K/mm3 (1.2-5.4) L 07/15/20 06:07 Abs React Lymphs (Man) 0.0 K/mm3 07/15/20 06:07 Monocytes # (Manual) 0.1 K/mm3 (0.0-0.8) 07/15/20 06:07 Eosinophils # (Manual) 0.0 K/mm3 (0.0-0.4) 07/15/20 06:07 Basophils # (Manual) 0.0 K/mm3 (0.0-0.1) 07/15/20 06:07 Metamyelocytes # 0.0 K/mm3 07/15/20 06:07 Myelocytes # 0.0 K/mm3 07/15/20 06:07 Promyelocytes # 0.0 K/mm3 07/15/20 06:07 Blast Cells # 0.0 K/mm3 07/15/20 06:07 WBC Morphology Not Reportable 07/15/20 06:07 Hypersegmented Neuts Not Reportable 07/15/20 06:07 Hyposegmented Neuts Not Reportable 07/15/20 06:07 Hypogranular Neuts Not Reportable 07/15/20 06:07 Smudge Cells Not Reportable 07/15/20 06:07 Toxic Granulation Not Reportable 07/15/20 06:07 Toxic Vacuolation Not Reportable 07/15/20 06:07 Dohle Bodies Not Reportable 07/15/20 06:07 Pelger-Huet Anomaly Not Reportable 07/15/20 06:07 Pat Rods Not Reportable 07/15/20 06:07 Platelet Estimate Consistent w auto 07/15/20 06:07 Clumped Platelets Not Reportable 07/15/20 06:07 Plt Clumps, EDTA Not Reportable 07/15/20 06:07 Large Platelets Not Reportable 07/15/20 06:07 Giant Platelets Not Reportable 07/15/20 06:07 Platelet Satelliting Not Reportable 07/15/20 06:07 Plt Morphology Comment Not Reportable 07/15/20 06:07 RBC Morphology Not Reportable 07/15/20 06:07 Dimorphic RBCs Not Reportable 07/15/20 06:07 Polychromasia Few 07/15/20 06:07 Hypochromasia Not Reportable 07/15/20 06:07 Poikilocytosis Not Reportable 07/15/20 06:07 Anisocytosis Few 07/15/20 06:07 Microcytosis Not Reportable 07/15/20 06:07 Macrocytosis Few 07/15/20 06:07 Spherocytes Not Reportable 07/15/20 06:07 Pappenheimer Bodies Not Reportable 07/15/20 06:07 Sickle Cells Not Reportable 07/15/20 06:07 Target Cells Not Reportable 07/15/20 06:07 Tear Drop Cells Not Reportable 07/15/20 06:07 Ovalocytes Not Reportable 07/15/20 06:07 Stomatocytes Few 07/15/20 06:07 Helmet Cells Not Reportable 07/15/20 06:07 [place] Bodies Not Reportable 07/15/20 06:07 [place] Rings Not Reportable 07/15/20 06:07 [place] Cells Not Reportable 07/15/20 06:07 Bite Cells Not Reportable 07/15/20 06:07 Crenated Cell Not Reportable 07/15/20 06:07 Elliptocytes Not Reportable 07/15/20 06:07 Acanthocytes (Spur) Not Reportable 07/15/20 06:07 Rouleaux Not Reportable 07/15/20 06:07 Hemoglobin C Crystals Not Reportable 07/15/20 06:07 Schistocytes Not Reportable 07/15/20 06:07 Malaria parasites Not Reportable 07/15/20 06:07 [place]upo Bodies Not Reportable 07/15/20 06:07 Hem Pathologist Commnt No 07/15/20 06:07 ABG pH 7.366 pH Units (7.350-7.450) 07/14/20 22:35 ABG pCO2 69.1 mm Hg 07/14/20 22:35 ABG pO2 57.7 mm Hg (80.0-90.0) L 07/14/20 22:35 ABG HCO3 38.7 mmol/L (20.0-26.0) H 07/14/20 22:35 ABG O2 Saturation 91.9 % (95.0-99.0) L 07/14/20 22:35 ABG O2 Content 18.2 (0.0-44) 07/14/20 22:35 ABG Base Excess 10.2 mmol/L (-2.0-3.0) H 07/14/20 22:35 ABG Hemoglobin 14.8 gm/dl (14.0-18.0) 07/14/20 22:35 ABG Carboxyhemoglobin 4.4 % (0.0-5.0) 07/14/20 22:35 ABG Methemoglobin 0.5 % (0.0-1.5) 07/14/20 22:35 Oxyhemoglobin 87.5 % (95.0-99.0) L 07/14/20 22:35 FiO2 28 % 07/14/20 22:35 Sodium 141 mmol/L (137-145) 07/15/20 06:07 Potassium 4.3 mmol/L (3.6-5.0) 07/15/20 06:07 Chloride 94.2 mmol/L (98-107) L 07/15/20 06:07 Carbon Dioxide 36 mmol/L (22-30) H 07/15/20 06:07 Anion Gap 15 mmol/L 07/15/20 06:07 BUN 12 mg/dL (9-20) 07/15/20 06:07 Creatinine 0.8 mg/dL (0.8-1.3) 07/15/20 06:07 Estimated GFR > 60 ml/min 07/15/20 06:07 BUN/Creatinine Ratio 15 % 07/15/20 06:07 Glucose 239 mg/dL (75-100) H 07/15/20 06:07 Calcium 8.6 mg/dL (8.4-10.2) 07/15/20 06:07 Magnesium 2.20 mg/dL (1.7-2.3) 07/14/20 21:13 Total Bilirubin 0.20 mg/dL (0.1-1.2) 07/14/20 21:13 AST 16 units/L (5-40) 07/14/20 21:13 ALT 20 units/L (7-56) 07/14/20 21:13 Alkaline Phosphatase 109 units/L (35-129) 07/14/20 21:13 Troponin T < 0.010 ng/mL (0.00-0.029) 07/14/20 21:13 Total Protein 7.0 g/dL (6.3-8.2) 07/14/20 21:13 Albumin 4.4 g/dL (3.9-5) 07/14/20 21:13 Albumin/Globulin Ratio 1.7 % 07/14/20 21:13 Active Medications - Current Medications Current Medications: Generic Name Dose Route Start Last Admin Trade Name Freq PRN Reason Stop Dose Admin Acetaminophen 650 mg 07/14/20 23:07 Acetaminophen 325 Mg Tab PO Q4H PRN Pain MILD(1-3)/Fever >100.5/OLIVA Albuterol 2.5 mg 07/14/20 23:07 Albuterol 2.5 Mg/3 Ml Nebu IH Q3HRT PRN Shortness Of Breath Albuterol/Ipratropium 1 ampul 07/15/20 02:00 07/15/20 08:26 Ipratropium/Albuterol Sulfate 3 Ml Ampul.Neb IH 1 ampul Q6HRT ROSETTA Administration Famotidine 20 mg 07/15/20 10:00 07/15/20 12:18 Famotidine 20 Mg Tab PO 20 mg BID ROSETTA Administration Heparin Sodium (Porcine) 5,000 unit 07/15/20 06:00 07/15/20 06:14 Heparin 5,000 Unit/1 Ml Vial SUB-Q 5,000 unit Q8HR ROSETTA Administration Hydralazine HCl 10 mg 07/14/20 23:10 Hydralazine 20 Mg/1 Ml Inj IV Q6H PRN htn Methylprednisolone Sodium Succinate 40 mg 07/15/20 00:00 07/15/20 12:18 Methylprednisolone Sod Succinate 40 Mg/1 Ml Inj IV 40 mg Q6HR ROSETTA Administration Ondansetron HCl 4 mg 07/14/20 23:07 Ondansetron 4 Mg/2 Ml Inj IV Q8H PRN Nausea And Vomiting Paroxetine HCl 10 mg 07/15/20 10:00 07/15/20 12:18 Paroxetine 10 Mg Tab PO 10 mg DAILY ROSETTA Administration Risperidone 1 mg 07/15/20 10:00 07/15/20 12:18 Risperidone 1 Mg Tab PO 1 mg DAILY ROSETTA Administration Risperidone 3 mg 07/15/20 22:00 Risperidone 3 Mg Tab PO QHS ROSETTA Sodium Chloride 10 ml 07/15/20 10:00 07/15/20 12:18 Sodium Chloride 0.9% 10 Ml Flush Syringe IV 10 ml BID ROSETTA Administration Sodium Chloride 10 ml 07/14/20 23:07 Sodium Chloride 0.9% 10 Ml Flush Syringe IV PRN PRN LINE FLUSH Trazodone HCl 100 mg 07/15/20 22:00 Trazodone 100 Mg Tab PO QHS ROSETTA
--- NOTE | 2020-07-15 13:56 | Consultation ---
History of Present Illness Consult date: 07/15/20 Reason for consult: dyspnea, COPD, hypoxemia History of present illness: 40-year-old male with past medical history of COPD on 2 L of home oxygen, schizophrenia and bipolar disorder was brought to the emergency department with a complaint of a 2-day history of shortness of breath. The patient says that he had a low oxygen saturation at home, down to 82%, while wearing his supplemental oxygen. He has some associated cough, wheezing and subjective fever. The patient presented through triage and did not have supplemental oxygen was found to have a room air oxygen saturation of 85%. He is a former smoker but still continues to dip tobacco. He denies any chest pain, lower extremity swelling, nausea, vomiting, back pain or diaphoresis. No recent travel or sick contacts at home. No known exposure to anyone with COVID- 19. In the emergency room patient is found to have acute hypoxic respiratory failure and COPD exacerbation. Patient in deep sleep, not responding to verbal stimuli. No acute respiratory distress. Patient is on 5L O2, and O2 saturation 93%. Patient's ABG's done on 07/14/20 on 2L O2: ABG pH 7.366 pH Units ABG pCO2 69.1 mm Hg ABG pO2 57.7 mm Hg ABG O2 Saturation 91.9 % Patient afebrile with mild leukocytosis. Chest x-ray done on 07/14/20 reported No significant pulmonary or pleural abnormality. No pneumothorax. Medications include duoneb, famotidine, s/c heparin, and solumedrol. Past History Past Medical History: COPD, other (Schizophrenia and bipolar disorder) Medications and Allergies Allergies Allergy/AdvReac Type Severity Reaction Status Date / Time Sulfa (Sulfonamide Allergy Unknown Verified 04/25/20 18:24 Antibiotics) Home Medications Medication Instructions Recorded Confirmed Last Taken Type PARoxetine [Paxil] 10 mg PO DAILY 06/08/20 06/08/20 06/03/20 History risperiDONE 3 mg PO HS 06/08/20 06/08/20 06/03/20 History risperiDONE [RisperDAL] 1 mg PO DAILY 06/08/20 06/08/20 06/03/20 History traZODone [Desyrel] 100 mg PO QHS 06/08/20 06/08/20 06/03/20 History predniSONE 10 mg PO .TAPER #48 tab 06/09/20 Unknown Rx Active Meds: Active Medications Acetaminophen (Acetaminophen 325 Mg Tab) 650 mg PO Q4H PRN PRN Reason: Pain MILD(1-3)/Fever >100.5/OLIVA Albuterol (Albuterol 2.5 Mg/3 Ml Nebu) 2.5 mg IH Q3HRT PRN PRN Reason: Shortness Of Breath Albuterol/Ipratropium (Ipratropium/Albuterol Sulfate 3 Ml Ampul.Neb) 1 ampul IH Q6HRT [facility] Last Admin: 07/15/20 08:26 Dose: 1 ampul Documented by: Dextrose (Dextrose 50% In Water (25gm) 50 Ml Syringe) 50 ml IV Q30MIN PRN; Protocol PRN Reason: Hypoglycemia Famotidine (Famotidine 20 Mg Tab) 20 mg PO BID [facility] Last Admin: 07/15/20 12:18 Dose: 20 mg Documented by: Heparin Sodium (Porcine) (Heparin 5,000 Unit/1 Ml Vial) 5,000 unit SUB-Q Q8HR [facility] Last Admin: 07/15/20 06:14 Dose: 5,000 unit Documented by: Hydralazine HCl (Hydralazine 20 Mg/1 Ml Inj) 10 mg IV Q6H PRN PRN Reason: htn Insulin Human Lispro (Insulin Lispro 100 Unit/Ml) 0 unit SUB-Q [facility]; Protocol Methylprednisolone Sodium Succinate (Methylprednisolone Sod Succinate 40 Mg/1 Ml Inj) 40 mg IV Q6HR [facility] Last Admin: 07/15/20 12:18 Dose: 40 mg Documented by: Ondansetron HCl (Ondansetron 4 Mg/2 Ml Inj) 4 mg IV Q8H PRN PRN Reason: Nausea And Vomiting Paroxetine HCl (Paroxetine 10 Mg Tab) 10 mg PO DAILY [facility] Last Admin: 07/15/20 12:18 Dose: 10 mg Documented by: Risperidone (Risperidone 1 Mg Tab) 1 mg PO DAILY [facility] Last Admin: 07/15/20 12:18 Dose: 1 mg Documented by: Risperidone (Risperidone 3 Mg Tab) 3 mg PO QHS [facility] Sodium Chloride (Sodium Chloride 0.9% 10 Ml Flush Syringe) 10 ml IV BID [facility] Last Admin: 07/15/20 12:18 Dose: 10 ml Documented by: Sodium Chloride (Sodium Chloride 0.9% 10 Ml Flush Syringe) 10 ml IV PRN PRN PRN Reason: LINE FLUSH Trazodone HCl (Trazodone 100 Mg Tab) 100 mg PO QHS [place] Review of Systems All systems: negative Physical Examination Vital signs: Vital Signs Temp Pulse Resp BP Pulse Ox 98.3 F 105 H 20 135/90 85 07/14/20 19:02 07/14/20 19:02 07/14/20 19:02 07/14/20 19:02 07/14/20 19:02 General appearance: no acute distress, asleep, other (morbidly obese) Eyes: non-icteric ENT: oropharynx moist Neck: supple Effort: normal Ascultation: Bilateral: diminished breath sounds Cardiovascular: regular rate and rhythm Gastrointestinal: normoactive bowel sounds, non-distended Integumentary: normal Extremities: no cyanosis, no edema Musculoskeletal: no deformities Gait: other (patient sleeping) pupils equal and round, other (patient sleeping) other (patient sleeping) Results - Laboratory Findings CBC and BMP: 07/15/20 06:07 07/15/20 06:07 ABG ABG pH 7.366 pH Units (7.350-7.450) 07/14/20 22:35 ABG pCO2 69.1 mm Hg 07/14/20 22:35 ABG pO2 57.7 mm Hg (80.0-90.0) L 07/14/20 22:35 ABG O2 Saturation 91.9 % (95.0-99.0) L 07/14/20 22:35 Abnormal lab findings: Abnormal Labs 07/14/20 07/14/20 07/14/20 21:13 21:13 22:35 WBC 13.7 H RBC Hgb Hct 47.1 H RDW 15.8 H [place] % (Auto) 8.1 H [place] # (Auto) 1.1 H Seg Neuts % (Manual) Lymphocytes % (Manual) Seg Neutrophils # 9.3 H Seg Neutrophils # Man Lymphocytes # (Manual) ABG pO2 57.7 L ABG HCO3 38.7 H ABG O2 Saturation 91.9 L ABG Base Excess 10.2 H Oxyhemoglobin 87.5 L Chloride 96.2 L Carbon Dioxide 40 H Creatinine 0.7 L Glucose 07/15/20 07/15/20 06:07 06:07 WBC 11.4 H RBC 5.07 H Hgb 15.5 H Hct 47.5 H RDW 16.3 H [place] % (Auto) [place] # (Auto) Seg Neuts % (Manual) 95.0 H Lymphocytes % (Manual) 4.0 L Seg Neutrophils # 10.3 H Seg Neutrophils # Man 10.8 H Lymphocytes # (Manual) 0.5 L ABG pO2 ABG HCO3 ABG O2 Saturation ABG Base Excess Oxyhemoglobin Chloride 94.2 L Carbon Dioxide 36 H Creatinine Glucose 239 H - Diagnostic Findings Chest x-ray: report reviewed, image reviewed Additional studies: CHEST 2 VIEWS 07/14/20 INDICATION / CLINICAL INFORMATION: SOB. COMPARISON: 06/04/2020 FINDINGS: SUPPORT DEVICES: None. HEART / MEDIASTINUM: No significant abnormality. LUNGS / PLEURA: No significant pulmonary or pleural abnormality. No pneumothorax. ADDITIONAL FINDINGS: No significant additional findings. IMPRESSION: 1. No acute findings. Assessment and Plan 40-year-old male Morbidly with past medical history of COPD on 2 L of home oxygen, schizophrenia and bipolar disorder was brought to the emergency department with a complaint of a 2-day history of shortness of breath. The patient says that he had a low oxygen saturation at home, down to 82%, while wearing his supplemental oxygen. He has some associated cough, wheezing and subjective fever. The patient presented through triage and did not have supplemental oxygen was found to have a room air oxygen saturation of 85%. He is a former smoker but still continues to dip tobacco. He denies any chest pain, lower extremity swelling, nausea, vomiting, back pain or diaphoresis. No recent travel or sick contacts at home. No known exposure to anyone with COVID- 19. In the emergency room patient is found to have acute hypoxic respiratory failure and COPD exacerbation. Patient in deep sleep, not responding to verbal stimuli. No acute respiratory distress. Patient is on 5L O2, and O2 saturation 93%. Patient's ABG's done on 07/14/20 on 2L O2: ABG pH 7.366 pH Units ABG pCO2 69.1 mm Hg ABG pO2 57.7 mm Hg ABG O2 Saturation 91.9 % Recommend BIPAP during night time. Patient afebrile with mild leukocytosis. Chest x-ray done on 07/14/20 reported No significant pulmonary or pleural abnormality. No pneumothorax. Medications include duoneb, famotidine, s/c heparin, and solumedrol. I spent critical care time of 50 minutes by reviewing the chart, examine the patient, Review the labs chest xray, talking to the nursing staff and respiratory therapy and work out plan of treatment in this patient with respiratory failure, and Morbidly Obese patient. - Patient Problems (1) Acute and chronic respiratory failure with hypercapnia Current Visit: Yes Status: Acute Plan to address problem: Recommend O2 3 litres via nasal canula. Recommend BIPAP during night time Albuterol and atrovent aerosol treatments. Continue solumedrol. Continue s/c heparin. Continue famotidine. (2) COPD exacerbation Current Visit: Yes Status: Acute Plan to address problem: Recommend O2 3 litres via nasal canula. Recommend BIPAP during night time. Albuterol and atrovent aerosol treatments. Continue solumedrol. Continue s/c heparin. Continue famotidine. Recommend PFT's as an outpatient. (3) Schizophrenia Current Visit: Yes Status: Acute Plan to address problem: Management as per Psychiatry. (4) Tobacco abuse Current Visit: Yes Status: Acute Plan to address problem: Will supervisor counseling and guidance patient to stop smoking when he is alert and awake. (5) Morbid obesity Current Visit: Yes Status: Acute Plan to address problem: Recommend to loose weight. Diet and exercise. Sleep study as out patient.
[2020-07-15] MEDS: INSULIN LISPRO 100 UNIT/ML SUB-Q SCH ×2 (18:18→23:15)
[2020-07-15] MEDS ORDERED: risperiDONE 3 MG TAB PO SCH (22:00)
[2020-07-15] MEDS ORDERED: traZODone 100 MG TAB PO SCH (22:00)
[2020-07-15] MEDS ORDERED: RISPERIDONE 3 MG PO SCH (22:00)
[2020-07-16] MEDS: methylPREDNISolone Sod Succinate 40 MG/1 ML INJ IV SCH ×2 (05:49→12:33)
[2020-07-16] MEDS: HEPARIN 5,000 UNIT/1 ML VIAL SUB-Q SCH ×2 (05:49→14:17)
[2020-07-16] MEDS: FAMOTIDINE 20 MG TAB PO SCH (10:17)
[2020-07-16] MEDS: risperiDONE 1 MG TAB PO SCH (10:17)
[2020-07-16] MEDS: INSULIN LISPRO 100 UNIT/ML SUB-Q SCH ×2 (10:18→12:29)
[2020-07-16] MEDS: PARoxetine 10 MG TAB PO SCH (10:20)
--- NOTE | 2020-07-16 10:33 | Electrocardiograph Report ---
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 Electronically Signed On 07-16-2020 10:32:50 EDT by Jeevan Poe
--- NOTE | 2020-07-16 11:11 | Progress Note ---
Assessment and Plan 40-year-old male Morbidly with past medical history of COPD on 2 L of home oxygen, schizophrenia and bipolar disorder was brought to the emergency department with a complaint of a 2-day history of shortness of breath. The patient says that he had a low oxygen saturation at home, down to 82%, while wearing his supplemental oxygen. He has some associated cough, wheezing and subjective fever. The patient presented through triage and did not have supplemental oxygen was found to have a room air oxygen saturation of 85%. He is a former smoker but still continues to dip tobacco. He denies any chest pain, lower extremity swelling, nausea, vomiting, back pain or diaphoresis. No recent travel or sick contacts at home. No known exposure to anyone with COVID- 19. In the emergency room patient is found to have acute hypoxic respiratory failure and COPD exacerbation. Patient awake. No acute respiratory distress. Patient is on 5L O2, and O2 saturation 91%. Patient's ABG's done on 07/14/20 on 2L O2: ABG pH 7.366 pH Units ABG pCO2 69.1 mm Hg ABG pO2 57.7 mm Hg ABG O2 Saturation 91.9 % Recommend BIPAP during night time. Patient afebrile with mild leukocytosis. Chest x-ray done on 07/14/20 reported No significant pulmonary or pleural abnormality. No pneumothorax. Medications include duoneb, famotidine, s/c heparin, and solumedrol. Patient is on Isolation for Jimenez virus. Jimenez virus test results pending. - Patient Problems (1) Acute and chronic respiratory failure with hypercapnia Status: Acute Plan to address problem: Recommend O2 3 litres via nasal canula. Recommend BIPAP during night time Albuterol and atrovent aerosol treatments. Continue solumedrol. Continue s/c heparin. Continue famotidine. (2) COPD exacerbation Status: Acute Plan to address problem: Recommend O2 3 litres via nasal canula. Recommend BIPAP during night time. Albuterol and atrovent aerosol treatments. Continue solumedrol. Continue s/c heparin. Continue famotidine. Recommend PFT's as an outpatient. (3) Schizophrenia Status: Acute Plan to address problem: Management as per Psychiatry. (4) Tobacco abuse Status: Acute Plan to address problem: Will summer counselor patient to stop smoking when he is alert and awake. (5) Morbid obesity Status: Acute Plan to address problem: Recommend to loose weight. Diet and exercise. Sleep study as out patient. Subjective Date of service: 07/16/20 Interval history: 40-year-old male Morbidly with past medical history of COPD on 2 L of home oxygen, schizophrenia and bipolar disorder was brought to the emergency department with a complaint of a 2-day history of shortness of breath. The patient says that he had a low oxygen saturation at home, down to 82%, while wearing his supplemental oxygen. He has some associated cough, wheezing and subjective fever. The patient presented through triage and did not have supplemental oxygen was found to have a room air oxygen saturation of 85%. He is a former smoker but still continues to dip tobacco. He denies any chest pain, lower extremity swelling, nausea, vomiting, back pain or diaphoresis. No recent travel or sick contacts at home. No known exposure to anyone with COVID- 19. In the emergency room patient is found to have acute hypoxic respiratory failure and COPD exacerbation. Patient awake. No acute respiratory distress. Patient is on 5L O2, and O2 saturation 91%. Patient's ABG's done on 07/14/20 on 2L O2: ABG pH 7.366 pH Units ABG pCO2 69.1 mm Hg ABG pO2 57.7 mm Hg ABG O2 Saturation 91.9 % Recommend BIPAP during night time. Patient afebrile with mild leukocytosis. Chest x-ray done on 07/14/20 reported No significant pulmonary or pleural abnormality. No pneumothorax. Medications include duoneb, famotidine, s/c heparin, and solumedrol. Patient is on Isolation for Jimenez virus. Jimenez virus test results pending. Objective Vital Signs - 12hr 07/15/20 07/16/20 07/16/20 23:36 00:00 08:54 Temperature 98.0 F Pulse Rate 94 H Pulse Rate [ 94 H Right Brachial] Respiratory 16 16 Rate Blood Pressure 105/54 O2 Sat by Pulse 87 90 95 Oximetry Constitutional: no acute distress, alert, other (morbidly obese) Eyes: non-icteric ENT: oropharynx moist Neck: supple Effort: normal Ascultation: Bilateral: diminished breath sounds Cardiovascular: regular rate and rhythm Gastrointestinal: normoactive bowel sounds, non-distended Integumentary: normal Extremities: no cyanosis, no edema Neurologic: pupils equal and round, other (patient sleeping) Psychiatric: other (patient sleeping) CBC and BMP: 07/15/20 06:07 07/15/20 06:07 ABG, PT/INR, D-dimer: ABG ABG pH 7.366 pH Units (7.350-7.450) 07/14/20 22:35 ABG pCO2 69.1 mm Hg 07/14/20 22:35 ABG pO2 57.7 mm Hg (80.0-90.0) L 07/14/20 22:35 ABG O2 Saturation 91.9 % (95.0-99.0) L 07/14/20 22:35 Abnormal lab findings: Abnormal Labs 07/14/20 07/14/20 07/14/20 21:13 21:13 22:35 WBC 13.7 H RBC Hgb Hct 47.1 H RDW 15.8 H [place] % (Auto) 8.1 H [place] # (Auto) 1.1 H Seg Neuts % (Manual) Lymphocytes % (Manual) Seg Neutrophils # 9.3 H Seg Neutrophils # Man Lymphocytes # (Manual) ABG pO2 57.7 L ABG HCO3 38.7 H ABG O2 Saturation 91.9 L ABG Base Excess 10.2 H Oxyhemoglobin 87.5 L Chloride 96.2 L Carbon Dioxide 40 H Creatinine 0.7 L Glucose POC Glucose 07/15/20 07/15/20 07/15/20 06:07 06:07 22:52 WBC 11.4 H RBC 5.07 H Hgb 15.5 H Hct 47.5 H RDW 16.3 H [place] % (Auto) [place] # (Auto) Seg Neuts % (Manual) 95.0 H Lymphocytes % (Manual) 4.0 L Seg Neutrophils # 10.3 H Seg Neutrophils # Man 10.8 H Lymphocytes # (Manual) 0.5 L ABG pO2 ABG HCO3 ABG O2 Saturation ABG Base Excess Oxyhemoglobin Chloride 94.2 L Carbon Dioxide 36 H Creatinine Glucose 239 H POC Glucose 153 H 07/16/20 08:23 WBC RBC Hgb Hct RDW [place] % (Auto) [place] # (Auto) Seg Neuts % (Manual) Lymphocytes % (Manual) Seg Neutrophils # Seg Neutrophils # Man Lymphocytes # (Manual) ABG pO2 ABG HCO3 ABG O2 Saturation ABG Base Excess Oxyhemoglobin Chloride Carbon Dioxide Creatinine Glucose POC Glucose 303 H
--- NOTE | 2020-07-16 12:46 | Discharge Summary ---
Providers - Providers Date of Admission: 07/14/20 22:57 Attending physician: ELIUD THOMAS MD 07/15/20 12:46 Consult to Physician [CONS] Routine Comment: Consulting Provider: TROY CLIFTON Physician Instructions: Reason For Exam: bipolar 07/15/20 12:53 Consult to Physician [CONS] Routine Comment: Consulting Provider: KIA JAIME Physician Instructions: Reason For Exam: hypoxic respiratory failure Primary care physician: GREEN HOUSE MANAGER Hospitalization Reason for admission: Respiratory failure Condition: Serious Hospital course: Patient mental issues appear to be a barrier to his clinical management, he still has exertional dyspnea with increased work of breathing. As a result but psych and pulmonary consulted. Original Note: Assessment and Plan Assessment and plan: 40-year-old male with past medical history of COPD on 2 L of home oxygen, schizophrenia and bipolar disorder was brought to the emergency department with a complaint of a 2-day history of shortness of breath. The patient says that he had a low oxygen saturation at home, down to 82%, while wearing his supplemental oxygen. He has some associated cough, wheezing and subjective fever. The patient presented through triage and did not have supplemental oxygen was found to have a room air oxygen saturation of 85%. He is a former smoker but still continues to dip tobacco. He denies any chest pain, lower extremity swelling, nausea, vomiting, back pain or diaphoresis. No recent travel or sick contacts at home. No known exposure to anyone with COVID- 19. In the emergency room patient is found to have acute hypoxic respiratory failure and COPD exacerbation 07/15: Patient showing some clinical improvement. Will rule out COVID-19 considering severe hypoxia. This is likely that the patient not using his oxygen or run out of medications. He was not quite clear. He also requested for psych consult will place that consult. We will obtain pulmonary evaluation and anticipate discharge in a few days if he continues to improve. I did have extensive discussion about tobacco use and need to quit 15 minutes spent on counseling. Also another 20 minutes spent on counseling for general preventive health care including obesity. Patient verbalized understanding. Outpatient BELÉN study recommended. 07/16: Patient this morning reports that he feels like he is back to his baseline. His oxygen was left at 4 L I have asked the nurse staff to bring it down and see how he does. And if remains stable can be discharged have had extensive discussion with the patient including counseling for tobacco cessation patient verbalized understanding. He reports that he is compliant with his psych meds I will continue to follow with his psych doctor. I also discussed with him about his obesity and need for weight loss he verbalized understanding. 15 minutes was spent on this again today in addition to yesterday. 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 Put the patient on BiPAP. DuoNeb by nebulizer every 4 hours as needed. Solu-Medrol 40 mg IV every 6 hours. Zithromax to 50 mg p.o. daily. Consult pulmonary if needed (2) COPD exacerbation Current Visit: Yes Status: Acute Plan to address problem: Put the patient on BiPAP. DuoNeb by nebulizer every 4 hours as needed. Solu- Medrol 40 mg IV every 6 hours. Zithromax to 50 mg p.o. daily. Consult pulmonary if needed (3) Hypercapnia Current Visit: Yes Status: Acute Plan to address problem: Put the patient on BiPAP. DuoNeb by nebulizer every 4 hours as needed. Solu- Medrol 40 mg IV every 6 hours. Zithromax to 50 mg p.o. daily. Consult pulmonary if needed (4) Schizophrenia Current Visit: Yes Status: Acute Plan to address problem: Stable. We will continue the home medication. Outpatient follow-up with psychiatry (5) Tobacco abuse Current Visit: Yes Status: Acute Plan to address problem: Patient counseled regarding quitting smoking. We will put the nicotine patch if needed (6) morbid obesity Disposition: DC-01 TO HOME OR SELFCARE Final Discharge Diagnosis (Prints w/discharge instructions): Acute hypoxic respiratory failure Time spent for discharge: 35 MINS Core Measure Documentation - Palliative Care Palliative Care/ Comfort Measures: Not Applicable - Core Measures Any of the following diagnoses?: none Exam - Physical Exam Narrative exam: General appearance: Present: Mild respiratory distress close to but not quite at baseline well-nourished, morbidly obese - EENT Eyes: Present: PERRL ENT: hearing intact, clear oral mucosa - Neck Neck: Present: supple, normal ROM - Respiratory Respiratory effort: normal Respiratory: bilateral: wheezing - Cardiovascular Heart Sounds: Present: S1 & S2. Absent: rub, click - Extremities Extremities: pulses symmetrical, No edema Peripheral Pulses: within normal limits - Abdominal General gastrointestinal: Present: soft, non-tender, non-distended, normal bowel sounds, large pannus Male genitourinary: Present: normal - Integumentary Integumentary: Present: clear, warm, dry - Musculoskeletal Musculoskeletal: gait normal, strength equal bilaterally - Psychiatric Psychiatric: appropriate mood/affect, intact judgment & insight - Neurologic Neurologic: CNII-XII intact, moves all extremities - Constitutional Vitals: Temp Pulse Resp BP Pulse Ox 98.0 F 94 H 16 105/54 95 07/15/20 23:36 07/16/20 00:00 07/16/20 00:00 07/15/20 23:36 07/16/20 08:54 Plan Activity: advance as tolerated, fall precautions Diet: low fat Special Instructions: record daily weights, record daily BP diary, smoking cessation, home oxygen via (nasal cannula @ 3 liters per minute) Follow up with: PRIMARY MD REMI [Primary Care Provider] - 3-5 Days THOMAS LIVINGSTON MD [Staff Physician] - 7 Days TROY CLIFTON MD [Staff Physician] - 7 Days Prescriptions: Albuterol Sulfate [Albuterol 0.63% NEBS] 0.63 mg IH TID PRN #90 vial PRN Reason: Wheezing predniSONE 10 mg PO .TAPER #48 tab Budesonide/Formoterol Fumarate [Symbicort 160-4.5 Mcg Inhaler] 10.2 gm IH BID #1 [email or web address]
[2020-07-16 12:55] VITALS: BP 125/60
== END 2020-07-16 16:40 | disposition home or self-care (01) | DRG 189 ==
LOC: ED 17:06 → 3A 22:57
PROVIDERS: ADMIT Hospitalist; ATTEND Internal Medicine
PROC: 4A033R1 Measurement of Arterial Saturation, Peripheral, Percutaneous Approach (ICD-10-PCS; principal; 2020-07-14)
DX: J96.22 Acute and chronic respiratory failure with hypercapnia (principal); J44.1 Chronic obstructive pulmonary disease with (acute) exacerbation; Z68.41 Body mass index [BMI] 40.0-44.9, adult; F20.9 Schizophrenia, unspecified; F31.9 Bipolar disorder, unspecified; Z20.822 Contact with and (suspected) exposure to COVID-19; J96.21 Acute and chronic respiratory failure with hypoxia; E66.01 Morbid (severe) obesity due to excess calories; F17.200 Nicotine dependence, unspecified, uncomplicated; Z71.3 Dietary counseling and surveillance; Z88.2 Allergy status to sulfonamides; Z71.6 Tobacco abuse counseling; Z99.81 Dependence on supplemental oxygen
CPT/HCPCS: 36415; 71046; 80048; 80053; 82803; 82962; 83735; 84484; 85007; 85025; 93005; 94640; 94644; 96365; 96375; G0378; J1644; J1815; J2920; J2930; J3475; U0003

== ENCOUNTER 2020-09-12 09:42 | Emergency (ER) | payer MEDICARE ==
[2020-09-12] MEDS ORDERED: ACETAMINOPHEN 325 MG TAB PO ONE (12:03)
--- NOTE | 2020-09-12 12:38 | XRay Report ---
CHEST 1 VIEW INDICATION: sob. COMPARISON: 07/14/2020 FINDINGS: Support devices: None. Heart: Normal. Lungs/Pleura: No acute pulmonary or pleural findings. IMPRESSION: 1. No acute findings. Signer Name: Micha Washington MD Signed: 09/12/2020 12:29 PM Workstation Name: [id number]
--- NOTE | 2020-09-12 13:22 | Emergency Department Report ---
ED Shortness of Breath HPI - General Chief Complaint: Dyspnea/Respdistress Stated Complaint: SOB Time Seen by Provider: 09/12/20 11:01 Source: patient Mode of arrival: Ambulatory Limitations: No Limitations - History of Present Illness Initial Comments: 40-year-old male, history of schizophrenia and COPD on home O2, presents to ED with shortness of breath. Patient states he takes medication at night to help him sleep. Patient states sometimes his nasal cannula comes off at night and he does not realize it. Patient states he awoke this morning without his nasal cannula and his O2 was still low and he felt short of breath. At triage, O2 was in the 80s, however patient was not wearing his oxygen at the time. Patient is now on oxygen and states he is feeling much better. Denies any cough, fever, chest pain. MD Complaint: shortness of breath -: This morning Severity: mild Consistency: now resolved Improves With: oxygen Worsens With: exertion Known History Of: COPD Associated Symptoms: denies other symptoms Treatments Prior to Arrival: none - Related Data Home Oxygen Therapy: Yes Home Oxygen Amount: 3 Liters Home Medications Medication Instructions Recorded Confirmed Last Taken PARoxetine [Paxil] 10 mg PO DAILY 06/08/20 06/08/20 06/03/20 risperiDONE 3 mg PO HS 06/08/20 06/08/20 06/03/20 risperiDONE [RisperDAL] 1 mg PO DAILY 06/08/20 06/08/20 06/03/20 traZODone [Desyrel] 100 mg PO QHS 06/08/20 06/08/20 06/03/20 Previous Rx's Medication Instructions Recorded Last Taken Type Albuterol Sulfate [Albuterol 0.63% 0.63 mg IH TID PRN #90 vial 07/16/20 Unknown Rx NEBS] Budesonide/Formoterol Fumarate 10.2 gm IH BID #1 hfa.aer.ad 07/16/20 Unknown Rx [Symbicort 160-4.5 Mcg Inhaler] predniSONE 10 mg PO .TAPER #48 tab 07/16/20 Unknown Rx Albuterol Sulfate [Proventil Hfa] 2 puff IH Q4HR PRN #1 hfa.aer.ad 09/12/20 Unknown Rx Allergies Allergy/AdvReac Type Severity Reaction Status Date / Time Sulfa (Sulfonamide Allergy Unknown Verified 09/12/20 10:05 Antibiotics) ED Review of Systems ROS: Stated complaint: SOB Other details as noted in HPI Comment: All other systems reviewed and negative Constitutional: denies: fever Respiratory: shortness of breath Cardiovascular: denies: chest pain Neurological: headache ED Past Medical Hx - Past Medical History Hx Hypertension: Yes Hx Congestive Heart Failure: No Hx Diabetes: No Hx Psychiatric Treatment: Yes (SCHIZOPHRENIC/ BIPOLAR) Hx Asthma: No Hx COPD: Yes - Surgical History Past Surgical History?: No - Social History Smoking Status: Former Smoker - Medications Home Medications: Home Medications Medication Instructions Recorded Confirmed Last Taken Type PARoxetine [Paxil] 10 mg PO DAILY 06/08/20 06/08/20 06/03/20 History risperiDONE 3 mg PO HS 06/08/20 06/08/20 06/03/20 History risperiDONE [RisperDAL] 1 mg PO DAILY 06/08/20 06/08/20 06/03/20 History traZODone [Desyrel] 100 mg PO QHS 06/08/20 06/08/20 06/03/20 History Albuterol Sulfate [Albuterol 0.63% 0.63 mg IH TID PRN #90 vial 07/16/20 Unknown Rx NEBS] Budesonide/Formoterol Fumarate 10.2 gm IH BID #1 hfa.aer.ad 07/16/20 Unknown Rx [Symbicort 160-4.5 Mcg Inhaler] predniSONE 10 mg PO .TAPER #48 tab 07/16/20 Unknown Rx Albuterol Sulfate [Proventil Hfa] 2 puff IH Q4HR PRN #1 hfa.aer.ad 09/12/20 Unknown Rx ED Physical Exam - General Limitations: No Limitations General appearance: alert, in no apparent distress - Head Head exam: Present: atraumatic, normocephalic - Eye Eye exam: Present: normal appearance, EOMI - ENT ENT exam: Present: mucous membranes moist - Neck Neck exam: Present: normal inspection - Respiratory Respiratory exam: Present: normal lung sounds bilaterally. Absent: respiratory distress - Cardiovascular Cardiovascular Exam: Present: regular rate, normal rhythm - GI/Abdominal GI/Abdominal exam: Present: soft. Absent: distended, tenderness - Extremities Exam Extremities exam: Present: normal inspection - Neurological Exam Neurological exam: Present: alert, oriented X3 - Psychiatric Psychiatric exam: Present: normal affect, normal mood - Skin Skin exam: Present: warm, dry, intact, normal color ED Course Vital Signs 09/12/20 09/12/20 09/12/20 10:07 10:25 11:21 Temperature 98.4 F Pulse Rate 107 H 97 H Respiratory 24 20 18 Rate Blood Pressure 154/90 122/57 [Right] O2 Sat by Pulse 84 98 95 Oximetry 09/12/20 13:37 Temperature Pulse Rate 91 H Respiratory 20 Rate Blood Pressure 115/74 [Right] O2 Sat by Pulse 94 Oximetry ED Medical Decision Making - Radiology Data Radiology results: report reviewed, image reviewed - Medical Decision Making Patient is in no respiratory distress none that he is on O2 via nasal cannula. Chest x-ray is unremarkable. He will be discharged home at this time. - Differential Diagnosis COPD, pneumonia, pulmonary edema Critical care attestation.: If time is entered above; I have spent that time in minutes in the direct care of this critically ill patient, excluding procedure time. ED Disposition Clinical Impression: COPD (chronic obstructive pulmonary disease) Disposition: DC-01 TO HOME OR SELFCARE Is pt being admited?: No Condition: Stable Instructions: Chronic Obstructive Pulmonary Disease Exacerbation, [id number], Chronic Obstructive Pulmonary Disease (ED) Prescriptions: Albuterol Sulfate [Proventil Hfa] 2 puff IH Q4HR PRN #1 hfa.aer.ad PRN Reason: Wheezing Referrals: PRIMARY CARE, [Primary Care Provider] - 3-5 Days Time of Disposition: 13:22
[2020-09-12 13:38] VITALS: BP 115/74
--- NOTE | 2020-09-13 14:06 | Electrocardiograph Report ---
[facility] Test Date: 2020-09-12 Test Time: 10:21:05 Pat Name: MATT DUMONT Department: Room: Gender: M Dragger: MARY : 1980 Requested By: CASIMIRO OLIVER Order Number: [id number] Reading MD: Tangela Jones Measurements Intervals [place] Rate: 106 P: 72 MA: 151 QRS: 80 QRSD: 84 T: 44 QT: 315 QTc: 419 Interpretive Statements Sinus tachycardia Probable left atrial enlargement Compared to ECG 07/14/2020 20:48:10 No significant change Electronically Signed On 09-13-2020 14:06:35 EDT by Tangela Jones
== END 2020-09-12 13:38 | disposition home or self-care (01) ==
LOC: ED 09:42
DX: J44.9 Chronic obstructive pulmonary disease, unspecified (principal); I10 Essential (primary) hypertension; Z87.891 Personal history of nicotine dependence; Z79.899 Other long term (current) drug therapy; Z88.2 Allergy status to sulfonamides
CPT/HCPCS: 71045; 93005

== ENCOUNTER 2020-10-25 00:41 | Emergency (ER) | payer MEDICARE ==
[2020-10-25 01:51] LABS: Basophils # (Auto) 0.1 K/mm3 (0.0-0.1); Basophils % (Auto) 0.5 % (0.0-1.8); Eosinophils # (Auto) 0.1 K/mm3 (0.0-0.4); Eosinophils % (Auto) 0.5 % (0.0-4.3); Lymphocytes # (Auto) 4.5 K/mm3 (1.2-5.4); Lymphocytes % (Auto) 27.6 % (13.4-35.0); Mean Corpuscular HGB Conc 35 % (32-34); Mean Corpuscular Volume 95 fl (84-94); Monocytes # (Auto) 1.6 K/mm3 (0.0-0.8); Monocytes % (Auto) 9.9 % (0.0-7.3); Platelet Count 253 K/mm3 (140-440); Red Blood Count 4.82 M/mm3 (3.65-5.03); Red Cell Distribution Width 14.4 % (13.2-15.2)
[2020-10-25 01:56] LABS: BUN/Creatinine Ratio 13; Blood Urea Nitrogen 10 mg/dL (9-20); Calcium 9.3 mg/dL (8.4-10.2); Hemolysis Index 8
[2020-10-25 02:42] LABS: Amphetamine Screen,Urine Negative; Benzodiazepines Screen,Urine Negative; Cannabinoid Screen,Urine Negative; Cocaine Screen,Urine Negative; Methadone Screen,Urine Negative; Opiate Screen,Urine Negative
--- NOTE | 2020-10-25 02:52 | Emergency Department Report ---
ED Psych HPI - General Chief Complaint: Psych Stated Complaint: SUICIDAL THOUGHTS Time Seen by Provider: 10/25/20 02:39 Source: patient Mode of arrival: Ambulatory - History of Present Illness Initial Comments: Patient is a 40-year-old male who presents emergency room with complaints of suicidal ideation. Patient states that his symptoms been going on for 4 days. Patient dates his symptoms are worsening. Patient states he is also hearing voices. Patient states the voices are telling him to kill himself. Patient states he has a plan. Patient states he wants to hang himself. Patient states the voices are telling the tied noose around his neck. Patient denies visual hallucination. Patient denies homicidal ideation. Patient states he had this in the past. Patient states he is taking all of his medications. Patient denies recent travel. Patient denies recent international travel. Patient denies exposure to the novel coronavirus. Patient denies sick contacts. Patient denies fever and chills. Patient denies cough. Patient denies diarrhea. Patient denies coming in contact with anybody with symptoms of the novel coronavirus. MD Complaint: suicidal ideation, feels depressed -: Sudden Associated Psychiatric Symptoms: depression, suicidal ideation, auditory hallucinations History of same: Yes Quality: constant Improves With: none Worsens With: none Context: significant life stressor Associated Symptoms: denies other symptoms. denies: confusion, headache, shortness of breath, nausea, vomiting, syncope, insomnia If Self Harm: admits thoughts of, has plan - Related Data Previous Rx's Medication Instructions Recorded Last Taken Type Albuterol Sulfate [Proventil Hfa] 2 puff IH Q4HR PRN #1 hfa.aer.ad 09/12/20 Unknown Rx Albuterol Sulfate [Albuterol 0.63% 0.63 mg IH TID PRN #90 vial 10/18/20 Unknown Rx NEBS] Benztropine [Cogentin] 2 mg PO DAILY #30 10/18/20 Unknown Rx Budesonide/Formoterol Fumarate 2 puff IH BID #1 hfa.aer.ad 10/18/20 Unknown Rx [Symbicort 160-4.5 Mcg Inhaler] Ipratropium/Albuterol Sulfate 1 ampul IH TIDRT #50 ampul.neb 10/18/20 Unknown Rx [DUONEB *Not for PRN Use*] OLANzapine [Zyprexa] 10 mg PO DAILY 30 Days #30 10/18/20 Unknown Rx PARoxetine [Paxil] 10 mg PO DAILY #30 tablet 10/18/20 Unknown Rx Prednisone [predniSONE 10 mg 10 mg PO .TAPER #1 tab.ds.pk 10/18/20 Unknown Rx (6-Day Pack, 21 Tabs)] oxyCODONE /ACETAMINOPHEN [Percocet 1 tab PO Q6H PRN #12 tablet 10/18/20 Unknown Rx 5/325 mg] predniSONE 5 mg PO QDAY 30 Days #30 tab 10/18/20 Unknown Rx risperiDONE [RisperDAL] 1 mg PO QAM #30 tablet 10/18/20 Unknown Rx traZODone [Desyrel] 100 mg PO QHS #1 tablet 10/18/20 Unknown Rx Allergies Allergy/AdvReac Type Severity Reaction Status Date / Time Sulfa (Sulfonamide Allergy Unknown Verified 10/15/20 10:10 Antibiotics) ED Review of Systems ROS: Stated complaint: SUICIDAL THOUGHTS Other details as noted in HPI Constitutional: denies: chills, fever Eyes: denies: eye pain, eye discharge, vision change ENT: denies: ear pain, throat pain Respiratory: denies: cough, shortness of breath, wheezing Cardiovascular: denies: chest pain, palpitations Endocrine: no symptoms reported Gastrointestinal: denies: abdominal pain, nausea, diarrhea Genitourinary: denies: urgency, dysuria Musculoskeletal: denies: back pain, joint swelling, arthralgia Skin: denies: rash, lesions Neurological: denies: headache, weakness, paresthesias Psychiatric: as per HPI, depression, auditory hallucinations, suicidal thoughts. denies: anxiety, visual hallucinations, homicidal thoughts Hematological/Lymphatic: denies: easy bleeding, easy bruising ED Past Medical Hx - Past Medical History Previous Medical History?: Yes Hx Hypertension: Yes Hx Congestive Heart Failure: No Hx Diabetes: No Hx Psychiatric Treatment: Yes (SCHIZOPHRENIC/ BIPOLAR) Hx Asthma: No Hx COPD: Yes - Surgical History Past Surgical History?: No - Family History Family history: no significant - Social History Smoking Status: Never Smoker Substance Use Type: None - Medications Home Medications: Home Medications Medication Instructions Recorded Confirmed Last Taken Type Albuterol Sulfate [Proventil Hfa] 2 puff IH Q4HR PRN #1 hfa.aer.ad 09/12/20 10/18/20 Unknown Rx Albuterol Sulfate [Albuterol 0.63% 0.63 mg IH TID PRN #90 vial 10/18/20 Unknown Rx NEBS] Benztropine [Cogentin] 2 mg PO DAILY #30 10/18/20 Unknown Rx Budesonide/Formoterol Fumarate 2 puff IH BID #1 hfa.aer.ad 10/18/20 Unknown Rx [Symbicort 160-4.5 Mcg Inhaler] Ipratropium/Albuterol Sulfate 1 ampul IH TIDRT #50 ampul.neb 10/18/20 Unknown Rx [DUONEB *Not for PRN Use*] OLANzapine [Zyprexa] 10 mg PO DAILY 30 Days #30 10/18/20 Unknown Rx PARoxetine [Paxil] 10 mg PO DAILY #30 tablet 10/18/20 Unknown Rx Prednisone [predniSONE 10 mg 10 mg PO .TAPER #1 tab.ds.pk 10/18/20 Unknown Rx (6-Day Pack, 21 Tabs)] oxyCODONE /ACETAMINOPHEN [Percocet 1 tab PO Q6H PRN #12 tablet 10/18/20 Unknown Rx 5/325 mg] predniSONE 5 mg PO QDAY 30 Days #30 tab 10/18/20 Unknown Rx risperiDONE [RisperDAL] 1 mg PO QAM #30 tablet 10/18/20 Unknown Rx traZODone [Desyrel] 100 mg PO QHS #1 tablet 10/18/20 Unknown Rx ED Physical Exam - General Limitations: No Limitations General appearance: alert, in no apparent distress - Head Head exam: Present: atraumatic, normocephalic - Eye Eye exam: Present: normal appearance - ENT ENT exam: Present: mucous membranes moist - Neck Neck exam: Present: normal inspection - Respiratory Respiratory exam: Present: normal lung sounds bilaterally. Absent: respiratory distress, wheezes, rales - Cardiovascular Cardiovascular Exam: Present: regular rate, normal rhythm. Absent: systolic murmur, diastolic murmur, rubs, gallop - GI/Abdominal GI/Abdominal exam: Present: soft, normal bowel sounds - Rectal Rectal exam: Present: deferred - Extremities Exam Extremities exam: Present: normal inspection - Back Exam Back exam: Present: normal inspection - Neurological Exam Neurological exam: Present: alert, oriented X3 - Psychiatric Psychiatric exam: Present: flat affect, suicidal ideation - Skin Skin exam: Present: warm, dry, intact, normal color. Absent: rash ED Course Vital Signs 10/25/20 10/25/20 10/25/20 00:59 03:24 08:45 Temperature 98.9 F 97.8 F Pulse Rate 109 H 90 Respiratory 20 18 20 Rate Blood Pressure 140/93 Blood Pressure 145/89 [Left] O2 Sat by Pulse 91 98 96 Oximetry - Reevaluation(s) Reevaluation #1: Patient will remain in the ER as an ER hold. Patient is medically cleared. Patient's final disposition will come from our psychiatry team. 10/25/20 02:59 ED Medical Decision Making - Lab Data Result diagrams: 10/25/20 01:11 10/25/20 01:11 - Medical Decision Making Patient is a 40-year-old male who presents emergency room for suicidal ideation hallucinations. Patient states that hallucinations are telling him to kill himself. Patient states he has a plan. Patient placed on a ER hold. Patient is medically cleared. Patient was evaluated by our psychiatry team. Patient's final disposition will come from our psychiatry team. - Differential Diagnosis Suicidal ideation, audio hallucinations. Critical care attestation.: If time is entered above; I have spent that time in minutes in the direct care of this critically ill patient, excluding procedure time. ED Disposition Clinical Impression: Suicidal ideations, Hallucinations Disposition: 01 HOME / SELF CARE / HOMELESS Is pt being admited?: No Does the pt Need Aspirin: No Condition: Stable Instructions: Persistent Depressive Disorder, Adult, Suicidal Feelings: How to Help Yourself, Helping Someone Who Is Suicidal Additional Instructions: OUTPATIENT MENTAL HEALTH RESOURCES [facility], [facility] Sangeeta Griffin MD: [address] [place] [address] [place], [place] [id number] [facility]: [employer] [address] [place] [address] [place] [address] [phone] [facility]: [facility] Healthcare: [address] [place] [address] [address] [place] [address] [place] [address] [place] [address] [facility]: Froylan Dejesus MD: [id number] [facility] [address] [place], [place] [address] [facility]: [address] [place] [phone] [place] CRISIS AND ACCESS LINE: Referrals: PRIMARY CAREMD [Primary Care Provider] - 3-5 Days Time of Disposition: 03:01
[2020-10-25 02:55] LABS: Bacteria,Urine 1+ /HPF (Negative); Bilirubin,Urine NEG (Negative); Blood,Urine NEG (Negative); Color,Urine Yellow (Yellow); Mucus,Urine FEW /HPF; Protein,Urine <15 mg/dL mg/dL (Negative); Urobilinogen,Urine < 2.0 mg/dL (<2.0)
[2020-10-25 08:47] VITALS: BP 145/89
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
--- NOTE | 2020-10-25 10:48 | Emergency Department Report ---
Blank Doc - Documentation Documentation: Patient had been seen and medically cleared by the prior physician. Patient was evaluated from a psychiatric perspective. It was felt that the patient did not meet criteria for admission psychiatrically. There was no imminent risk of danger. Patient was willing to contract for safety. Patient was discharged based on recommendations from the psychiatric machine pack assembler.
== END 2020-10-25 11:14 | disposition home or self-care (01) ==
LOC: ED 00:41
DX: R45.851 Suicidal ideations (principal); Z20.822 Contact with and (suspected) exposure to COVID-19; I10 Essential (primary) hypertension; F20.9 Schizophrenia, unspecified; F31.9 Bipolar disorder, unspecified; Z88.2 Allergy status to sulfonamides; Z79.899 Other long term (current) drug therapy
CPT/HCPCS: 36415; 80048; 80307; 81001; 85025; 99284; U0003; 80320; G0480

== ENCOUNTER 2020-12-04 19:45 | Inpatient (IN) | payer MEDICARE ==
[2020-12-04] MEDS ORDERED: ONDANSETRON 4 MG/2 ML INJ IV ONE (20:34)
[2020-12-04] MEDS ORDERED: NALOXONE 0.4 MG/1 ML INJ IV ONE (20:34)
--- NOTE | 2020-12-04 20:43 | Emergency Department Report ---
ED General Adult HPI - General Chief complaint: Dyspnea/Respdistress Stated complaint: NADEEN Time Seen by Provider: 12/04/20 20:28 Source: EMS Mode of arrival: Stretcher Limitations: Altered Mental Status - History of Present Illness Initial comments: Patient presents to the emergency department via EMS for respiratory distress. Per EMS upon arrival the patient's O2 sats was 74% on room air. Upon my evaluation of the patient he is somnolent but arousable to tactile stimuli. Patient denied participate with history and physical. Patient does have a history of COPD and is noncompliant with his medications. -: unknown Severity scale (0 -10): 0 Consistency: constant Improves with: none Worsens with: none Treatments Prior to Arrival: none - Related Data Previous Rx's Medication Instructions Recorded Last Taken Type Albuterol Sulfate [Proventil Hfa] 2 puff IH Q4HR PRN #1 hfa.aer.ad 09/12/20 Unknown Rx Albuterol Sulfate [Albuterol 0.63% 0.63 mg IH TID PRN #90 vial 10/18/20 Unknown Rx NEBS] Benztropine [Cogentin] 2 mg PO DAILY #30 10/18/20 Unknown Rx Budesonide/Formoterol Fumarate 2 puff IH BID #1 hfa.aer.ad 10/18/20 Unknown Rx [Symbicort 160-4.5 Mcg Inhaler] Ipratropium/Albuterol Sulfate 1 ampul IH TIDRT #50 ampul.neb 10/18/20 Unknown Rx [DUONEB *Not for PRN Use*] OLANzapine [Zyprexa] 10 mg PO DAILY 30 Days #30 10/18/20 Unknown Rx PARoxetine [Paxil] 10 mg PO DAILY #30 tablet 10/18/20 Unknown Rx Prednisone [predniSONE 10 mg 10 mg PO .TAPER #1 tab.ds.pk 10/18/20 Unknown Rx (6-Day Pack, 21 Tabs)] oxyCODONE /ACETAMINOPHEN [Percocet 1 tab PO Q6H PRN #12 tablet 10/18/20 Unknown Rx 5/325 mg] predniSONE 5 mg PO QDAY 30 Days #30 tab 10/18/20 Unknown Rx risperiDONE [RisperDAL] 1 mg PO QAM #30 tablet 10/18/20 Unknown Rx traZODone [Desyrel] 100 mg PO QHS #1 tablet 10/18/20 Unknown Rx Allergies Allergy/AdvReac Type Severity Reaction Status Date / Time Sulfa (Sulfonamide Allergy Unknown Verified 12/04/20 20:06 Antibiotics) ED Review of Systems ROS: Stated complaint: NADEEN Other details as noted in HPI Comment: Unobtainable due to pts medical conditions ED Past Medical Hx - Past Medical History Hx Hypertension: Yes Hx Congestive Heart Failure: No Hx Diabetes: No Hx Psychiatric Treatment: Yes (SCHIZOPHRENIC/ BIPOLAR) Hx Asthma: No Hx COPD: Yes - Social History Smoking Status: Never Smoker Substance Use Type: None - Medications Home Medications: Home Medications Medication Instructions Recorded Confirmed Last Taken Type Albuterol Sulfate [Proventil Hfa] 2 puff IH Q4HR PRN #1 hfa.aer.ad 09/12/20 10/18/20 Unknown Rx Albuterol Sulfate [Albuterol 0.63% 0.63 mg IH TID PRN #90 vial 10/18/20 Unknown Rx NEBS] Benztropine [Cogentin] 2 mg PO DAILY #30 10/18/20 Unknown Rx Budesonide/Formoterol Fumarate 2 puff IH BID #1 hfa.aer.ad 10/18/20 Unknown Rx [Symbicort 160-4.5 Mcg Inhaler] Ipratropium/Albuterol Sulfate 1 ampul IH TIDRT #50 ampul.neb 10/18/20 Unknown Rx [DUONEB *Not for PRN Use*] OLANzapine [Zyprexa] 10 mg PO DAILY 30 Days #30 10/18/20 Unknown Rx PARoxetine [Paxil] 10 mg PO DAILY #30 tablet 10/18/20 Unknown Rx Prednisone [predniSONE 10 mg 10 mg PO .TAPER #1 tab.ds.pk 10/18/20 Unknown Rx (6-Day Pack, 21 Tabs)] oxyCODONE /ACETAMINOPHEN [Percocet 1 tab PO Q6H PRN #12 tablet 10/18/20 Unknown Rx 5/325 mg] predniSONE 5 mg PO QDAY 30 Days #30 tab 10/18/20 Unknown Rx risperiDONE [RisperDAL] 1 mg PO QAM #30 tablet 10/18/20 Unknown Rx traZODone [Desyrel] 100 mg PO QHS #1 tablet 10/18/20 Unknown Rx ED Physical Exam - General Limitations: Altered Mental Status General appearance: obtunded - Head Head exam: Present: atraumatic, normocephalic - Eye Eye exam: Present: other (Constricted pupils) - ENT ENT exam: Present: mucous membranes dry - Respiratory Respiratory exam: Present: decreased breath sounds - Cardiovascular Cardiovascular Exam: Present: normal rhythm, tachycardia - GI/Abdominal GI/Abdominal exam: Present: soft, normal bowel sounds. Absent: distended, tenderness - Extremities Exam Extremities exam: Present: normal inspection - Neurological Exam Neurological exam: Present: altered - Psychiatric Psychiatric exam: Present: other (not able to obtain srcondary to the pts condition) - Skin Skin exam: Present: warm, dry, intact, normal color. Absent: rash ED Course Vital Signs 12/04/20 12/04/20 12/04/20 20:06 20:20 20:30 Temperature 100.3 F H Pulse Rate 107 H 104 H Respiratory 20 34 H 32 H Rate Blood Pressure Blood Pressure 126/81 143/81 [Right] O2 Sat by Pulse 97 78 L 97 Oximetry 12/04/20 12/04/20 12/04/20 21:06 21:22 21:25 Temperature Pulse Rate 118 H 115 H 121 H Respiratory 32 H 21 32 H Rate Blood Pressure Blood Pressure 140/88 [Right] O2 Sat by Pulse 84 95 92 Oximetry 12/04/20 12/04/20 12/04/20 21:30 21:53 22:01 Temperature Pulse Rate 119 H 116 H 122 H Respiratory 19 22 21 Rate Blood Pressure 155/89 Blood Pressure [Right] O2 Sat by Pulse 86 92 85 Oximetry 12/04/20 12/04/20 12/04/20 22:15 22:31 22:45 Temperature Pulse Rate 119 H 120 H 120 H Respiratory 21 23 25 H Rate Blood Pressure 155/80 158/81 144/85 Blood Pressure [Right] O2 Sat by Pulse 95 94 91 Oximetry 12/04/20 23:01 Temperature Pulse Rate 102 H Respiratory 13 Rate Blood Pressure 118/70 Blood Pressure [Right] O2 Sat by Pulse 100 Oximetry ED Medical Decision Making - Lab Data Result diagrams: 12/04/20 20:45 12/04/20 20:45 Lab Results 12/04/20 12/04/20 12/04/20 Range/Units 20:45 20:45 20:45 WBC 11.4 H (4.5-11.0) K/mm3 RBC 4.65 (3.65-5.03) M/mm3 Hgb 14.2 (11.8-15.2) gm/dl Hct 44.9 (35.5-45.6) % MCV 97 H (84-94) fl MCH 31 (28-32) pg MCHC 32 (32-34) % RDW 15.7 H (13.2-15.2) % Plt Count 204 (140-440) K/mm3 Lymph % (Auto) 22.7 (13.4-35.0) % [place] % (Auto) 10.6 H (0.0-7.3) % Eos % (Auto) 3.0 (0.0-4.3) % Baso % (Auto) 0.8 (0.0-1.8) % Lymph # (Auto) 2.6 (1.2-5.4) K/mm3 [place] # (Auto) 1.2 H (0.0-0.8) K/mm3 Eos # (Auto) 0.3 (0.0-0.4) K/mm3 Baso # (Auto) 0.1 (0.0-0.1) K/mm3 Seg Neutrophils % 62.9 (40.0-70.0) % Seg Neutrophils # 7.2 (1.8-7.7) K/mm3 PT 13.2 (12.2-14.9) Sec. INR 0.90 (0.87-1.13) APTT 26.4 (24.2-36.6) Sec. ABG pH (7.350-7.450) pH Units ABG pCO2 mm Hg ABG pO2 (80.0-90.0) mm Hg ABG HCO3 (20.0-26.0) mmol/L ABG O2 Saturation (95.0-99.0) % ABG O2 Content (0.0-44) ABG Base Excess (-2.0-3.0) mmol/L ABG Hemoglobin (14.0-18.0) gm/dl ABG Carboxyhemoglobin (0.0-5.0) % ABG Methemoglobin (0.0-1.5) % Oxyhemoglobin (95.0-99.0) % FiO2 % Sodium 140 (137-145) mmol/L Potassium 4.2 (3.6-5.0) mmol/L Chloride 96.2 L (98-107) mmol/L Carbon Dioxide 35 H (22-30) mmol/L Anion Gap 13 mmol/L BUN 7 L (9-20) mg/dL Creatinine 0.7 L (0.8-1.3) mg/dL Estimated GFR > 60 ml/min BUN/Creatinine Ratio 10 % Glucose 126 H (75-100) mg/dL POC Glucose (70-105) mg/dL Lactic Acid (0.7-2.0) mmol/L Calcium 8.8 (8.4-10.2) mg/dL Magnesium 2.20 (1.7-2.3) mg/dL Total Bilirubin 0.20 (0.1-1.2) mg/dL AST 16 (5-40) units/L ALT 19 (7-56) units/L Alkaline Phosphatase 95 (35-129) units/L Total Creatine Kinase 114 (55-170) units/L CK-MB (CK-2) 2.0 (0.0-4.0) ng/mL CK-MB (CK-2) Rel Index 1.7 (0-4) Troponin T < 0.010 (0.00-0.029) ng/mL Total Protein 7.1 (6.3-8.2) g/dL Albumin 4.1 (3.9-5) g/dL Albumin/Globulin Ratio 1.4 % Lipase 17 (13-60) units/L Urine Color (Yellow) Urine Turbidity (Clear) Urine pH (5.0-7.0) Ur Specific Guild (1.003-1.030) Urine Protein (Negative) mg/dL Urine Glucose (UA) (Negative) mg/dL Urine Ketones (Negative) mg/dL Urine Blood (Negative) Urine Nitrite (Negative) Urine Bilirubin (Negative) Urine Urobilinogen (<2.0) mg/dL Ur Leukocyte Esterase (Negative) Urine WBC (Auto) (0.0-6.0) /HPF Urine RBC (Auto) (0.0-6.0) /HPF U Epithel Cells (Auto) (0-13.0) /HPF Urine Mucus /HPF Urine Opiates Screen Urine Methadone Screen Ur Barbiturates Screen Ur Phencyclidine Scrn Ur Amphetamines Screen U Benzodiazepines Scrn Urine Cocaine Screen U Marijuana (THC) Screen Drugs of Abuse Note 10/13/21 10/13/21 10/13/21 Range/Units 20:45 21:08 22:16 WBC (4.5-11.0) K/mm3 RBC (3.65-5.03) M/mm3 Hgb (11.8-15.2) gm/dl Hct (35.5-45.6) % MCV (84-94) fl MCH (28-32) pg MCHC (32-34) % RDW (13.2-15.2) % Plt Count (140-440) K/mm3 Lymph % (Auto) (13.4-35.0) % [place] % (Auto) (0.0-7.3) % Eos % (Auto) (0.0-4.3) % Baso % (Auto) (0.0-1.8) % Lymph # (Auto) (1.2-5.4) K/mm3 [place] # (Auto) (0.0-0.8) K/mm3 Eos # (Auto) (0.0-0.4) K/mm3 Baso # (Auto) (0.0-0.1) K/mm3 Seg Neutrophils % (40.0-70.0) % Seg Neutrophils # (1.8-7.7) K/mm3 PT (12.2-14.9) Sec. INR (0.87-1.13) APTT (24.2-36.6) Sec. ABG pH (7.350-7.450) pH Units ABG pCO2 mm Hg ABG pO2 (80.0-90.0) mm Hg ABG HCO3 (20.0-26.0) mmol/L ABG O2 Saturation (95.0-99.0) % ABG O2 Content (0.0-44) ABG Base Excess (-2.0-3.0) mmol/L ABG Hemoglobin (14.0-18.0) gm/dl ABG Carboxyhemoglobin (0.0-5.0) % ABG Methemoglobin (0.0-1.5) % Oxyhemoglobin (95.0-99.0) % FiO2 % Sodium (137-145) mmol/L Potassium (3.6-5.0) mmol/L Chloride (98-107) mmol/L Carbon Dioxide (22-30) mmol/L Anion Gap mmol/L BUN (9-20) mg/dL Creatinine (0.8-1.3) mg/dL Estimated GFR ml/min BUN/Creatinine Ratio % Glucose (75-100) mg/dL POC Glucose 115 H (70-105) mg/dL Lactic Acid 0.80 (0.7-2.0) mmol/L Calcium (8.4-10.2) mg/dL Magnesium (1.7-2.3) mg/dL Total Bilirubin (0.1-1.2) mg/dL AST (5-40) units/L ALT (7-56) units/L Alkaline Phosphatase (35-129) units/L Total Creatine Kinase (55-170) units/L CK-MB (CK-2) (0.0-4.0) ng/mL CK-MB (CK-2) Rel Index (0-4) Troponin T (0.00-0.029) ng/mL Total Protein (6.3-8.2) g/dL Albumin (3.9-5) g/dL Albumin/Globulin Ratio % Lipase (13-60) units/L Urine Color Yellow (Yellow) Urine Turbidity Clear (Clear) Urine pH 5.0 (5.0-7.0) Ur Specific Guild 1.025 (1.003-1.030) Urine Protein 30 mg/dl (Negative) mg/dL Urine Glucose (UA) Neg (Negative) mg/dL Urine Ketones Neg (Negative) mg/dL Urine Blood Neg (Negative) Urine Nitrite Neg (Negative) Urine Bilirubin Neg (Negative) Urine Urobilinogen 2.0 (<2.0) mg/dL Ur Leukocyte Esterase Neg (Negative) Urine WBC (Auto) 2.0 (0.0-6.0) /HPF Urine RBC (Auto) 4.0 (0.0-6.0) /HPF U Epithel Cells (Auto) < 1.0 (0-13.0) /HPF Urine Mucus 2+ /HPF Urine Opiates Screen Urine Methadone Screen Ur Barbiturates Screen Ur Phencyclidine Scrn Ur Amphetamines Screen U Benzodiazepines Scrn Urine Cocaine Screen U Marijuana (THC) Screen Drugs of Abuse Note 12/04/20 12/04/20 Range/Units 22:16 22:35 WBC (4.5-11.0) K/mm3 RBC (3.65-5.03) M/mm3 Hgb (11.8-15.2) gm/dl Hct (35.5-45.6) % MCV (84-94) fl MCH (28-32) pg MCHC (32-34) % RDW (13.2-15.2) % Plt Count (140-440) K/mm3 Lymph % (Auto) (13.4-35.0) % [place] % (Auto) (0.0-7.3) % Eos % (Auto) (0.0-4.3) % Baso % (Auto) (0.0-1.8) % Lymph # (Auto) (1.2-5.4) K/mm3 [place] # (Auto) (0.0-0.8) K/mm3 Eos # (Auto) (0.0-0.4) K/mm3 Baso # (Auto) (0.0-0.1) K/mm3 Seg Neutrophils % (40.0-70.0) % Seg Neutrophils # (1.8-7.7) K/mm3 PT (12.2-14.9) Sec. INR (0.87-1.13) APTT (24.2-36.6) Sec. ABG pH 7.156 L* (7.350-7.450) pH Units ABG pCO2 124.7 mm Hg ABG pO2 86.0 (80.0-90.0) mm Hg ABG HCO3 43.1 H (20.0-26.0) mmol/L ABG O2 Saturation 95.6 (95.0-99.0) % ABG O2 Content 18.0 (0.0-44) ABG Base Excess 9.0 H (-2.0-3.0) mmol/L ABG Hemoglobin 14.7 (14.0-18.0) gm/dl ABG Carboxyhemoglobin 8.9 H (0.0-5.0) % ABG Methemoglobin 0.5 (0.0-1.5) % Oxyhemoglobin 86.7 L (95.0-99.0) % FiO2 50 % Sodium (137-145) mmol/L Potassium (3.6-5.0) mmol/L Chloride (98-107) mmol/L Carbon Dioxide (22-30) mmol/L Anion Gap mmol/L BUN (9-20) mg/dL Creatinine (0.8-1.3) mg/dL Estimated GFR ml/min BUN/Creatinine Ratio % Glucose (75-100) mg/dL POC Glucose (70-105) mg/dL Lactic Acid (0.7-2.0) mmol/L Calcium (8.4-10.2) mg/dL Magnesium (1.7-2.3) mg/dL Total Bilirubin (0.1-1.2) mg/dL AST (5-40) units/L ALT (7-56) units/L Alkaline Phosphatase (35-129) units/L Total Creatine Kinase (55-170) units/L CK-MB (CK-2) (0.0-4.0) ng/mL CK-MB (CK-2) Rel Index (0-4) Troponin T (0.00-0.029) ng/mL Total Protein (6.3-8.2) g/dL Albumin (3.9-5) g/dL Albumin/Globulin Ratio % Lipase (13-60) units/L Urine Color (Yellow) Urine Turbidity (Clear) Urine pH (5.0-7.0) Ur Specific Guild (1.003-1.030) Urine Protein (Negative) mg/dL Urine Glucose (UA) (Negative) mg/dL Urine Ketones (Negative) mg/dL Urine Blood (Negative) Urine Nitrite (Negative) Urine Bilirubin (Negative) Urine Urobilinogen (<2.0) mg/dL Ur Leukocyte Esterase (Negative) Urine WBC (Auto) (0.0-6.0) /HPF Urine RBC (Auto) (0.0-6.0) /HPF U Epithel Cells (Auto) (0-13.0) /HPF Urine Mucus /HPF Urine Opiates Screen Negative Urine Methadone Screen Negative Ur Barbiturates Screen Negative Ur Phencyclidine Scrn Negative Ur Amphetamines Screen Negative U Benzodiazepines Scrn Negative Urine Cocaine Screen Negative U Marijuana (THC) Screen Negative Drugs of Abuse Note Disclamer - EKG Data -: EKG Interpreted by Wi EKG shows normal: sinus rhythm Rate: tachycardia - Radiology Data Radiology results: report reviewed - Medical Decision Making CT of the head was done due to the patient's somnolence IV Narcan given due to the patient's constricted pupils Narcan was to no avail ABG shows a pH of 7.16 Patient placed on BiPAP Critical Care Time: Yes Critical care time in (mins) excluding proc time.: 35 Critical care attestation.: If time is entered above; I have spent that time in minutes in the direct care of this critically ill patient, excluding procedure time. ED Disposition Clinical Impression: Respiratory failure Disposition: HOME / SELF CARE / HOMELESS Is pt being admited?: Yes Does the pt Need Aspirin: No Condition: Fair Referrals: PRIMARY CARE, [Primary Care Provider] - 3-5 Days
[2020-12-04 21:08] LABS: Basophils # (Auto) 0.1 K/mm3 (0.0-0.1); Basophils % (Auto) 0.8 % (0.0-1.8); Eosinophils # (Auto) 0.3 K/mm3 (0.0-0.4); Hematocrit 44.9 % (35.5-45.6); Hemoglobin 14.2 gm/dl (11.8-15.2); Lymphocytes # (Auto) 2.6 K/mm3 (1.2-5.4); Lymphocytes % (Auto) 22.7 % (13.4-35.0); Mean Corpuscular HGB Conc 32 % (32-34); Mean Corpuscular Volume 97 fl (84-94); Monocytes # (Auto) 1.2 K/mm3 (0.0-0.8); Monocytes % (Auto) 10.6 % (0.0-7.3); Platelet Count 204 K/mm3 (140-440); Red Blood Count 4.65 M/mm3 (3.65-5.03); Red Cell Distribution Width 15.7 % (13.2-15.2)
[2020-12-04 21:18] LABS: INR 0.9 (0.87-1.13)
[2020-12-04 21:19] LABS: Partial Thromboplastin Time 26.4 Sec. (24.2-36.6)
[2020-12-04 21:29] LABS: Alanine Aminotransferase 19 units/L (7-56); Albumin 4.1 g/dL (3.9-5); Blood Urea Nitrogen 7 mg/dL (9-20); Calcium 8.8 mg/dL (8.4-10.2); Hemolysis Index 12
[2020-12-04 21:31] LABS: BUN/Creatinine Ratio 10
--- NOTE | 2020-12-04 21:42 | XRay Report ---
CHEST 1 VIEW 12/04/2020 8:26 PM INDICATION / CLINICAL INFORMATION: Dyspnea. COMPARISON: 10/15/2020 FINDINGS: SUPPORT DEVICES: None. HEART / MEDIASTINUM: No significant abnormality. LUNGS / PLEURA: No significant pulmonary or pleural abnormality. No pneumothorax. ADDITIONAL FINDINGS: No significant additional findings. IMPRESSION: 1. No acute findings. Signer Name: Liam Paul DO Signed: 12/04/2020 9:38 PM Workstation Name: [id number]
--- NOTE | 2020-12-04 21:58 | Cat Scan Report ---
NONENHANCED CT SCAN OF THE HEAD: INDICATION / CLINICAL INFORMATION: 40 years Male; Altered Mental Status. TECHNIQUE: Routine CT head without contrast. All CT scans at this location are performed using CT dos e reduction for ALARA by means of automated exposure control. COMPARISON: None. FINDINGS: BRAIN / INTRACRANIAL CONTENTS: No acute hemorrhage, mass effect, midline shift, hydrocephalus, or acu te, large territorial infarct. [place] matter white matter interface and basal ganglia normal bilaterall y No chronic infarct or focal atrophy. Normal brain volume and ventricular/sulcal size for age. No si gnificant white matter abnormality. CRANIOCERVICAL JUNCTION: No significant abnormality. ORBITS: No significant abnormality of visualized orbits. SINUSES / MASTOIDS: Left maxillary sinus is opacified ADDITIONAL FINDINGS: None. IMPRESSION: No focal mass, hemorrhage, hydrocephalus, or acute, large territorial infarct Signer Name: Yayo Gaona MD Signed: 12/04/2020 9:53 PM Workstation Name: [id number]
[2020-12-04 22:37] LABS: Bilirubin,Urine NEG (Negative); Blood,Urine NEG (Negative); Color,Urine Yellow (Yellow); Mucus,Urine 2+ /HPF
[2020-12-04 22:42] LABS: ABG HCO3 43.1 mmol/L (20.0-26.0); ABG Methemoglobin 0.5 % (0.0-1.5); ABG Oxygen Saturation 95.6 % (95.0-99.0); ABG PCO2 124.7 mm Hg
[2020-12-04 22:45] LABS: Amphetamine Screen,Urine Negative; Benzodiazepines Screen,Urine Negative; Cannabinoid Screen,Urine Negative; Cocaine Screen,Urine Negative; Methadone Screen,Urine Negative; Opiate Screen,Urine Negative
[2020-12-04 22:48] LABS: ABG PH 7.156 pH Units (7.350-7.450)
[2020-12-05] MEDS ORDERED: ACETAMINOPHEN 325 MG TAB PO PRN (00:53)
[2020-12-05] MEDS ORDERED: MORPHINE 2 MG/1 ML INJ IV PRN (00:53)
[2020-12-05] MEDS ORDERED: MORPHINE 4 MG/1 ML INJ IV PRN (00:53)
[2020-12-05] MEDS ORDERED: MAGNESIUM HYDROXIDE (MOM) ORAL LIQD UDC PO PRN (00:53)
--- NOTE | 2020-12-05 01:10 | History and Physical Report ---
History of Present Illness Date of examination: 12/04/20 Date of admission: 12/04/2020 Chief complaint: Respiratory distress History of present illness: 40-year-old -[place] male with known history of COPD presenting to the emergency room today in respiratory distress. Patient is known not to be quite compliant with his medications. Upon arrival in the emergency room oxygen saturation was about 74% on room air. He was not quite arousable upon arrival and was given some Narcan without any significant improvement. Patient was unable to give any good history most of the history was obtained from the ER staff. Work-up in the emergency room today, CT angiogram of the chest reveals:1. No CT evidence for pulmonary embolism. 2. Cholelithiasis 3. Moderate hepatic steatosis Chest x-ray: Reveals no acute findings. Labs however was significant for PCO2 of 124.7. Patient has been placed on BiPAP. During the course of this documentation, I was notified that patient has been spiking a low-grade fever. Blood cultures has been requested and patient placed on empiric IV antibiotics. Past History Past Medical History: COPD, other (Schizophrenia/bipolar) Past Surgical History: No surgical history Social history: smoking (History of tobacco abuse) Family history: no significant family history Medications and Allergies Allergies Allergy/AdvReac Type Severity Reaction Status Date / Time Sulfa (Sulfonamide Allergy Unknown Verified 12/04/20 20:06 Antibiotics) Home Medications Medication Instructions Recorded Confirmed Last Taken Type Albuterol Sulfate [Proventil Hfa] 2 puff IH Q4HR PRN #1 hfa.aer.ad 09/12/20 10/18/20 Unknown Rx Albuterol Sulfate [Albuterol 0.63% 0.63 mg IH TID PRN #90 vial 10/18/20 Unknown Rx NEBS] Benztropine [Cogentin] 2 mg PO DAILY #30 10/18/20 Unknown Rx Budesonide/Formoterol Fumarate 2 puff IH BID #1 hfa.aer.ad 10/18/20 Unknown Rx [Symbicort 160-4.5 Mcg Inhaler] Ipratropium/Albuterol Sulfate 1 ampul IH TIDRT #50 ampul.neb 10/18/20 Unknown Rx [DUONEB *Not for PRN Use*] OLANzapine [Zyprexa] 10 mg PO DAILY 30 Days #30 10/18/20 Unknown Rx PARoxetine [Paxil] 10 mg PO DAILY #30 tablet 10/18/20 Unknown Rx Prednisone [predniSONE 10 mg 10 mg PO .TAPER #1 tab.ds.pk 10/18/20 Unknown Rx (6-Day Pack, 21 Tabs)] oxyCODONE /ACETAMINOPHEN [Percocet 1 tab PO Q6H PRN #12 tablet 10/18/20 Unknown Rx 5/325 mg] predniSONE 5 mg PO QDAY 30 Days #30 tab 10/18/20 Unknown Rx risperiDONE [RisperDAL] 1 mg PO QAM #30 tablet 10/18/20 Unknown Rx traZODone [Desyrel] 100 mg PO QHS #1 tablet 10/18/20 Unknown Rx Review of Systems ROS unobtainable: due to mental status Exam - Constitutional Vitals: Temp Pulse Resp BP Pulse Ox 100.4 F H 98 H 16 115/63 100 12/04/20 23:52 12/05/20 01:00 12/05/20 01:00 12/05/20 01:00 12/05/20 01:00 General appearance: Present: mild distress, well-nourished, obese, other (On BiPAP) - EENT Eyes: Present: PERRL, EOM intact. Absent: scleral icterus ENT: hearing intact, clear oral mucosa, dentition normal - Neck Neck: Present: supple, normal ROM - Respiratory Respiratory effort: normal Respiratory: bilateral: diminished - Cardiovascular Rhythm: regular Heart Sounds: Present: S1 & S2. Absent: gallop, systolic murmur, diastolic murmur, rub, click - Extremities Extremities: no ischemia, pulses intact, pulses symmetrical, No edema, normal temperature, normal color, Full ROM Peripheral Pulses: within normal limits - Abdominal General gastrointestinal: Present: soft, non-tender, non-distended, normal bowel sounds. Absent: mass - Integumentary Integumentary: Present: clear, warm, dry. Absent: rash - Musculoskeletal Musculoskeletal: strength equal bilaterally - Psychiatric Psychiatric: cooperative - Neurologic Neurologic: CNII-XII intact, no focal deficits, moves all extremities HEART Score - HEART Score Troponin: Troponin T < 0.010 ng/mL (0.00-0.029) 12/04/20 23:34 Results - Labs CBC & Chem 7: 12/04/20 20:45 12/04/20 20:45 Labs: Abnormal lab results 12/04/20 12/04/20 12/04/20 Range/Units 20:45 20:45 21:08 WBC 11.4 H (4.5-11.0) K/mm3 MCV 97 H (84-94) fl RDW 15.7 H (13.2-15.2) % [place] % (Auto) 10.6 H (0.0-7.3) % [place] # (Auto) 1.2 H (0.0-0.8) K/mm3 ABG pH (7.350-7.450) pH Units ABG HCO3 (20.0-26.0) mmol/L ABG Base Excess (-2.0-3.0) mmol/L ABG Carboxyhemoglobin (0.0-5.0) % Oxyhemoglobin (95.0-99.0) % Chloride 96.2 L (98-107) mmol/L Carbon Dioxide 35 H (22-30) mmol/L BUN 7 L (9-20) mg/dL Creatinine 0.7 L (0.8-1.3) mg/dL Glucose 126 H (75-100) mg/dL POC Glucose 115 H (70-105) mg/dL 12/04/20 Range/Units 22:35 WBC (4.5-11.0) K/mm3 MCV (84-94) fl RDW (13.2-15.2) % [place] % (Auto) (0.0-7.3) % [place] # (Auto) (0.0-0.8) K/mm3 ABG pH 7.156 L* (7.350-7.450) pH Units ABG HCO3 43.1 H (20.0-26.0) mmol/L ABG Base Excess 9.0 H (-2.0-3.0) mmol/L ABG Carboxyhemoglobin 8.9 H (0.0-5.0) % Oxyhemoglobin 86.7 L (95.0-99.0) % Chloride (98-107) mmol/L Carbon Dioxide (22-30) mmol/L BUN (9-20) mg/dL Creatinine (0.8-1.3) mg/dL Glucose (75-100) mg/dL POC Glucose (70-105) mg/dL Assessment and Plan - Patient Problems (1) Acute respiratory failure with hypoxia and hypercapnia Current Visit: No Status: Acute Plan to address problem: Patient has been placed on BiPAP. Will monitor ABG. Consult placed to clinical account liaison for evaluation. (2) COPD with acute exacerbation Current Visit: No Status: Acute Plan to address problem: We will place patient on nebulizing treatments and IV steroid. We will keep O2 saturation greater or equal to 92%. (3) History of behavioral and mental health problems Current Visit: No Status: Acute Plan to address problem: We will resume routine home medications once reconciled. (4) Morbid obesity with BMI of 40.0-44.9, adult Current Visit: No Status: Chronic Plan to address problem: Dietary consult requested For evaluation. (5) DVT prophylaxis Current Visit: No Status: Acute Plan to address problem: Patient placed on subcutaneous Lovenox. (6) Full code status Current Visit: Yes Status: Acute Plan to address problem: Patient is full code.
[2020-12-05 01:23] LABS: ABG Base Excess 9.1 mmol/L (-2.0-3.0); ABG HCO3 41.7 mmol/L (20.0-26.0); ABG Methemoglobin 0.6 % (0.0-1.5); ABG Oxygen Saturation 93.3 % (95.0-99.0); ABG PCO2 107.7 mm Hg; ABG PH 7.206 pH Units (7.350-7.450); ABG PO2 70.1 mm Hg (80.0-90.0)
--- NOTE | 2020-12-05 02:20 | Cat Scan Report ---
CTA CHEST WITH IV CONTRAST INDICATION: Hypoxia. TECHNIQUE: Axial CT images were obtained through the chest after injection of 100 cc IV contrast. 3 plane MIP re constructions were produced. All CT scans at this location are performed using CT dose reduction for ALARA by means of automated exposure control. COMPARISON: None available. FINDINGS: PULMONARY ARTERIES: No pulmonary emboli. THORACIC AORTA: No acute abnormality. HEART: Normal. CORONARY ARTERIES: No significant calcification. PLEURA: No pleural effusion. No pneumothorax. LYMPH NODES: No significant adenopathy. LUNGS: Bibasilar dependent atelectasis. No acute air space or interstitial disease. ADDITIONAL FINDINGS: None. UPPER ABDOMEN: Multiple cholesterol gallstones. Moderate decreased attenuation of the liver character istic for steatosis. SKELETAL STRUCTURES: No significant osseous abnormality. IMPRESSION: 1. No CT evidence for pulmonary embolism. 2. Cholelithiasis 3. Moderate hepatic steatosis Signer Name: Say Jeffers MD Signed: 12/05/2020 2:16 AM Workstation Name: [id number]
[2020-12-05 04:38] LABS: ABG Methemoglobin 0.6 % (0.0-1.5); ABG Oxygen Saturation 96.5 % (95.0-99.0); ABG PCO2 101.9 mm Hg; ABG PH 7.233 pH Units (7.350-7.450); ABG PO2 89.1 mm Hg (80.0-90.0)
[2020-12-05] MEDS ORDERED: ACETAMINOPHEN 650 MG RECT SUPP PR PRN (04:52)
[2020-12-05] MEDS: IPRATROPIUM/ALBUTEROL SULFATE 3 ML AMPUL.NEB IH SCH ×6 (05:07→23:36)
[2020-12-05] MEDS: methylPREDNISolone Sod Succinate 40 MG/1 ML INJ IV SCH ×3 (05:31→23:19)
[2020-12-05 14:00] LABS: ABG Base Excess 11.1 mmol/L (-2.0-3.0); ABG HCO3 42.5 mmol/L (20.0-26.0); ABG Methemoglobin 0.5 % (0.0-1.5); ABG Oxygen Saturation 96.8 % (95.0-99.0); ABG PH 7.273 pH Units (7.350-7.450); ABG PO2 95.1 mm Hg (80.0-90.0)
--- NOTE | 2020-12-05 16:41 | Progress Note ---
Assessment and Plan Assessment and plan: 40-year-old -[place] male with known history of COPD presenting to the emergency room today in respiratory distress. Patient is known not to be quite compliant with his medications. Upon arrival in the emergency room oxygen saturation was about 74% on room air. He was not quite arousable upon arrival and was given some Narcan without any significant improvement. Patient was unable to give any good history most of the history was obtained from the ER staff. Work-up in the emergency room today, CT angiogram of the chest reveals:1. No CT evidence for pulmonary embolism. 2. Cholelithiasis 3. Moderate hepatic steatosis Chest x-ray: Reveals no acute findings. Labs however was significant for PCO2 of 124.7. Patient has been placed on BiPAP. During the course of this documentation, I was notified that patient has been spiking a low-grade fever. Blood cultures has been requested and patient placed on empiric IV antibiotics. 12/05: Continue supportive care, continue on BiPAP, Pulmonary consult. May need some diuresis, Continue with IMCU care, will try to obtain most recent record (1) Acute respiratory failure with hypoxia and hypercapnia Current Visit: No Status: Acute Plan to address problem: Patient has been placed on BiPAP. Will monitor ABG. Consult placed to textile chemist for evaluation. (2) COPD with acute exacerbation Current Visit: No Status: Acute Plan to address problem: We will place patient on nebulizing treatments and IV steroid. We will keep O2 saturation greater or equal to 92%. (3) History of behavioral and mental health problems-Schiozophrenia Current Visit: No Status: Acute Plan to address problem: We will resume routine home medications once reconciled. (4) Morbid obesity with BMI of 40.0-44.9, adult Current Visit: No Status: Chronic Plan to address problem: Dietary consult requested For evaluation. (5) DVT prophylaxis Current Visit: No Status: Acute Plan to address problem: Patient placed on subcutaneous Lovenox. (6) Full code status Current Visit: Yes Status: Acute Plan to address problem: Patient is full code. History Interval history: Patient seen and examined, in no acute distress but lethargic, and on BiPAP. Tells me he leaves with a room mate but unable to give more information. He also confirms that he has been vaccinated. Hospitalist Physical - Physical exam Narrative exam: General appearance: Present: mild distress, well-nourished, obese, other (On BiPAP) - EENT Eyes: Present: PERRL, EOM intact. Absent: scleral icterus ENT: hearing intact, clear oral mucosa, dentition normal - Neck Neck: Present: supple, normal ROM - Respiratory Respiratory effort: normal Respiratory: bilateral: diminished - Cardiovascular Rhythm: regular Heart Sounds: Present: S1 & S2. Absent: gallop, systolic murmur, diastolic murmur, rub, click - Extremities Extremities: no ischemia, pulses intact, pulses symmetrical, No edema, normal temperature, normal color, Full ROM Peripheral Pulses: within normal limits - Abdominal General gastrointestinal: Present: soft, non-tender, non-distended, normal bowel sounds. Absent: mass - Integumentary Integumentary: Present: clear, warm, dry. Absent: rash - Musculoskeletal Musculoskeletal: strength equal bilaterally - Psychiatric Psychiatric: cooperative - Neurologic Neurologic: CNII-XII intact, no focal deficits, moves all extremities - Constitutional Vitals: Temp Pulse Resp BP Pulse Ox 98.7 F 79 19 159/124 95 12/05/20 06:28 12/05/20 13:01 12/05/20 13:01 12/05/20 13:01 12/05/20 13:01 General appearance: Present: mild distress, well-nourished, obese, other (On BiPAP) HEART Score - HEART Score Troponin: Troponin T < 0.010 ng/mL (0.00-0.029) 12/04/20 23:34 Results - Labs CBC & Chem 7: 12/06/20 04:38 12/06/20 04:38 Labs: Laboratory Last Values WBC 11.4 K/mm3 (4.5-11.0) H 12/04/20 20:45 RBC 4.65 M/mm3 (3.65-5.03) 12/04/20 20:45 Hgb 14.2 gm/dl (11.8-15.2) 12/04/20 20:45 Hct 44.9 % (35.5-45.6) 12/04/20 20:45 MCV 97 fl (84-94) H 12/04/20 20:45 MCH 31 pg (28-32) 12/04/20 20:45 MCHC 32 % (32-34) 12/04/20 20:45 RDW 15.7 % (13.2-15.2) H 12/04/20 20:45 Plt Count 204 K/mm3 (140-440) 12/04/20 20:45 Lymph % (Auto) 22.7 % (13.4-35.0) 12/04/20 20:45 [place] % (Auto) 10.6 % (0.0-7.3) H 12/04/20 20:45 Eos % (Auto) 3.0 % (0.0-4.3) 12/04/20 20:45 Baso % (Auto) 0.8 % (0.0-1.8) 12/04/20 20:45 Lymph # (Auto) 2.6 K/mm3 (1.2-5.4) 12/04/20 20:45 [place] # (Auto) 1.2 K/mm3 (0.0-0.8) H 12/04/20 20:45 Eos # (Auto) 0.3 K/mm3 (0.0-0.4) 12/04/20 20:45 Baso # (Auto) 0.1 K/mm3 (0.0-0.1) 12/04/20 20:45 Seg Neutrophils % 62.9 % (40.0-70.0) 12/04/20 20:45 Seg Neutrophils # 7.2 K/mm3 (1.8-7.7) 12/04/20 20:45 PT 13.2 Sec. (12.2-14.9) 12/04/20 20:45 INR 0.90 (0.87-1.13) 12/04/20 20:45 APTT 26.4 Sec. (24.2-36.6) 12/04/20 20:45 ABG pH 7.273 pH Units (7.350-7.450) L 12/05/20 13:46 ABG pCO2 94.0 mm Hg 12/05/20 13:46 ABG pO2 95.1 mm Hg (80.0-90.0) H 12/05/20 13:46 ABG HCO3 42.5 mmol/L (20.0-26.0) H 12/05/20 13:46 ABG O2 Saturation 96.8 % (95.0-99.0) 12/05/20 13:46 ABG O2 Content 19.4 (0.0-44) 12/05/20 13:46 ABG Base Excess 11.1 mmol/L (-2.0-3.0) H 12/05/20 13:46 ABG Hemoglobin 14.8 gm/dl (14.0-18.0) 12/05/20 13:46 ABG Carboxyhemoglobin 3.4 % (0.0-5.0) 12/05/20 13:46 ABG Methemoglobin 0.5 % (0.0-1.5) 12/05/20 13:46 Oxyhemoglobin 93.0 % (95.0-99.0) L 12/05/20 13:46 FiO2 40 % 12/05/20 13:46 Sodium 140 mmol/L (137-145) 12/04/20 20:45 Potassium 4.2 mmol/L (3.6-5.0) 12/04/20 20:45 Chloride 96.2 mmol/L (98-107) L 12/04/20 20:45 Carbon Dioxide 35 mmol/L (22-30) H 12/04/20 20:45 Anion Gap 13 mmol/L 12/04/20 20:45 BUN 7 mg/dL (9-20) L 12/04/20 20:45 Creatinine 0.7 mg/dL (0.8-1.3) L 12/04/20 20:45 Estimated GFR > 60 ml/min 12/04/20 20:45 BUN/Creatinine Ratio 10 % 12/04/20 20:45 Glucose 126 mg/dL (75-100) H 12/04/20 20:45 POC Glucose 115 mg/dL (70-105) H 12/04/20 21:08 Lactic Acid 0.80 mmol/L (0.7-2.0) 12/04/20 20:45 Calcium 8.8 mg/dL (8.4-10.2) 12/04/20 20:45 Magnesium 2.20 mg/dL (1.7-2.3) 12/04/20 20:45 Total Bilirubin 0.20 mg/dL (0.1-1.2) 12/04/20 20:45 AST 16 units/L (5-40) 12/04/20 20:45 ALT 19 units/L (7-56) 12/04/20 20:45 Alkaline Phosphatase 95 units/L (35-129) 12/04/20 20:45 Total Creatine Kinase 114 units/L (55-170) 12/04/20 20:45 CK-MB (CK-2) 2.0 ng/mL (0.0-4.0) 12/04/20 20:45 CK-MB (CK-2) Rel Index 1.7 (0-4) 12/04/20 20:45 Troponin T < 0.010 ng/mL (0.00-0.029) 12/04/20 23:34 Total Protein 7.1 g/dL (6.3-8.2) 12/04/20 20:45 Albumin 4.1 g/dL (3.9-5) 12/04/20 20:45 Albumin/Globulin Ratio 1.4 % 12/04/20 20:45 Lipase 17 units/L (13-60) 12/04/20 20:45 Urine Color Yellow (Yellow) 12/04/20 22:16 Urine Turbidity Clear (Clear) 12/04/20 22:16 Urine pH 5.0 (5.0-7.0) 12/04/20 22:16 Ur Specific [place] 1.025 (1.003-1.030) 12/04/20 22:16 Urine Protein 30 mg/dl mg/dL (Negative) 12/04/20 22:16 Urine Glucose (UA) Neg mg/dL (Negative) 12/04/20 22:16 Urine Ketones Neg mg/dL (Negative) 12/04/20 22:16 Urine Blood Neg (Negative) 12/04/20 22:16 Urine Nitrite Neg (Negative) 12/04/20 22:16 Urine Bilirubin Neg (Negative) 12/04/20 22:16 Urine Urobilinogen 2.0 mg/dL (<2.0) 12/04/20 22:16 Ur Leukocyte Esterase Neg (Negative) 12/04/20 22:16 Urine WBC (Auto) 2.0 /HPF (0.0-6.0) 12/04/20 22:16 Urine RBC (Auto) 4.0 /HPF (0.0-6.0) 12/04/20 22:16 U Epithel Cells (Auto) < 1.0 /HPF (0-13.0) 12/04/20 22:16 Urine Mucus 2+ /HPF 12/04/20 22:16 Urine Opiates Screen Negative 12/04/20 22:16 Urine Methadone Screen Negative 12/04/20 22:16 Acetaminophen 5.0 ug/mL (10.0-30.0) L 12/05/20 05:51 Ur Barbiturates Screen Negative 12/04/20 22:16 Ur Phencyclidine Scrn Negative 12/04/20 22:16 Ur Amphetamines Screen Negative 12/04/20 22:16 U Benzodiazepines Scrn Negative 12/04/20 22:16 Urine Cocaine Screen Negative 12/04/20 22:16 U Marijuana (THC) Screen Negative 12/04/20 22:16 Drugs of Abuse Note Disclamer 12/04/20 22:16 Microbiology: Microbiology 12/04/20 20:45 Peripheral/Venous Blood Culture - Preliminary Culture in Progress 12/04/20 20:45 Peripheral/Venous Blood Culture - Preliminary Culture in Progress Active Medications - Current Medications Current Medications: Generic Name Dose Route Start Last Admin Trade Name Freq PRN Reason Stop Dose Admin Acetaminophen 650 mg 12/05/20 00:53 Acetaminophen 325 Mg Tab PO Q6H PRN Pain MILD(1-3)/Fever >100.5/OLIVA Acetaminophen 650 mg 12/05/20 04:52 12/05/20 05:09 Acetaminophen 650 Mg Rect Supp AR 650 mg Q4H PRN Administration Fever >101 Albuterol/Ipratropium 1 ampul 12/05/20 04:00 12/05/20 15:01 Ipratropium/Albuterol Sulfate 3 Ml Ampul.Neb IH Not Given Q4HRT [facility] Enoxaparin Sodium 40 mg 12/05/20 22:00 Enoxaparin 40 Mg/0.4 Ml Inj SUB-Q QDAY@2200 [facility] Protocol Levofloxacin/Dextrose 750 mg in 150 mls @ 100 mls/hr 12/05/20 05:00 12/05/20 05:09 Levaquin 750mg/150ml IV 100 mls/hr Q24H [facility]ETTA Administration Protocol Magnesium Hydroxide 30 ml 12/05/20 00:53 Magnesium Hydroxide (Mom) Oral Liqd Udc PO Q4H PRN Constipation Methylprednisolone Sodium Succinate 40 mg 12/05/20 06:00 12/05/20 14:00 Methylprednisolone Sod Succinate 40 Mg/1 Ml Inj IV 40 mg Q8HR [facility] Administration Morphine Sulfate 2 mg 12/05/20 00:53 Morphine 2 Mg/1 Ml Inj IV Q4H PRN Pain, Moderate (4-6) Morphine Sulfate 4 mg 12/05/20 00:53 Morphine 4 Mg/1 Ml Inj IV Q4H PRN Pain , Severe (7-10) Sodium Chloride 10 ml 12/05/20 10:00 12/05/20 10:36 Sodium Chloride 0.9% 10 Ml Flush Syringe IV Not Given BID ROSETTA Sodium Chloride 10 ml 12/05/20 00:53 Sodium Chloride 0.9% 10 Ml Flush Syringe IV PRN PRN LINE FLUSH Nutrition/Malnutrition Assess - Dietary Evaluation Nutrition/Malnutrition Findings: Nutrition Notes Start: 12/05/20 11:13 Freq: Status: Active Protocol: Document 12/05/20 11:14 GB (Rec: 12/05/20 11:36 GB [id number]) Nutrition Notes Need for Assessment generated from: MD Order,Education Initial or Follow up Assessment Current Diagnosis COPD Other Pertinent Diagnosis Respiratory distress, morbid obesity Current Diet regular Labs/Tests 12/04: glucose 126, BUN 7, creatinine 0.7 Pertinent Medications levofloxacin/D5 @100ml/hr ( 408kcal) Height 5 ft 10 in Weight 140.61 kg [place] Body Weight (kg) 75.45 BMI 44.4 Weight change and time frame Admit weight recorded. IBW: 75.45kg %IBW: 186% Weight Status Morbidly Obese Subjective/Other Information Per chart: confused conversation, sleeping with difficulty to arouse. Pt currently is not a candidate for education. Upon admit to floor/improvement in alertness healthy nutrition education handout will be provided. Pt on BiPaP Percent of energy/protein needs met: unable to assess at this time as pt is new and reported to be difficult to arouse. Burn Absent Trauma Absent GI Symptoms None Food Allergy No Current % PO Other Minimum of two criteria No #1 Nutrition Diagnosis Overweight/obesity Etiology BMI over 40 As Evidenced by Signs and Symptoms BMI 44.5, 186% IBW Diagnosis Progress(for reassessment Continues documentation) Is patient on ventilator? No Is Patient Ambulatory and/or Out of Bed No REE-([facility]-confined to bed) 2794.872 Kcal/Kg value to use for calculation 15 Approximate Energy Requirements Using 2109 kcal/Kg Calculation Used for Recommendations Kcal/kg Additional Notes Protein 0.6-0.8 g/kg @ 141k-113g Fluids: 1 ml/kcal or per MD Nutrition Intervention Change Diet Order: continue Nutrition Support: n/a Add Supplement/Snack (indicate name/kcal n/a /protein ) Education Handouts Provided AND: healthy nutrition therapy education at f/u Barriers to Learning Cognitive/Verbal Goal #1 PO intake of meals to be 75% or greater daily during LOS Goal #2 At follow up, provide nutrition education handout on healthy nutrition therpy Follow-Up By: 12/09/20 Additional Comments f/u: provide nutrition education, po intake
--- NOTE | 2020-12-05 17:42 | Consultation ---
History of Present Illness Consult date: 12/05/20 Requesting physician: ROSALBA RIBEIRO Reason for consult: other (Acute Encephalopathy) History of present illness: PULMONARY/CCM CONSULT NOTE (Full dictation # [id number]) Please see dictated notes for full details Past History Past Medical History: COPD, other (Schizophrenia/bipolar) Past Surgical History: No surgical history Social history: smoking (History of tobacco abuse) Family history: no significant family history Medications and Allergies Allergies Allergy/AdvReac Type Severity Reaction Status Date / Time Sulfa (Sulfonamide Allergy Unknown Verified 12/05/20 23:59 Antibiotics) Home Medications Medication Instructions Recorded Confirmed Last Taken Type Benztropine [Cogentin] 2 mg PO DAILY #30 10/18/20 12/05/20 Unknown Rx oxyCODONE /ACETAMINOPHEN [Percocet 1 tab PO Q6H PRN #12 tablet 10/18/20 12/05/20 Unknown Rx 5/325 mg] traZODone [Desyrel] 100 mg PO QHS #1 tablet 10/18/20 12/05/20 Unknown Rx Albuterol Sulfate [Albuterol 0.63% 0.63 mg IH TID PRN #90 vial 12/07/20 Unknown Rx NEBS] Albuterol Sulfate [Proventil Hfa] 2 puff IH Q4HR PRN #1 hfa.aer.ad 12/07/20 Unknown Rx Budesonide/Formoterol Fumarate 2 puff IH BID #1 hfa.aer.ad 12/07/20 Unknown Rx [Symbicort 160-4.5 Mcg Inhaler] Ipratropium/Albuterol Sulfate 1 ampul IH TIDRT #50 ampul.neb 12/07/20 Unknown Rx [DUONEB *Not for PRN Use*] OLANzapine [Zyprexa] 10 mg PO DAILY 30 Days #30 12/07/20 Unknown Rx PARoxetine [Paxil] 10 mg PO DAILY #30 tablet 12/07/20 Unknown Rx Prednisone [predniSONE 10 mg 10 mg PO .TAPER #1 tab.ds.pk 12/07/20 Unknown Rx (6-Day Pack, 21 Tabs)] risperiDONE [RisperDAL] 1 mg PO QAM #30 tablet 12/07/20 Unknown Rx Active Meds: Active Medications Acetaminophen (Acetaminophen 325 Mg Tab) 650 mg PO Q6H PRN PRN Reason: Pain MILD(1-3)/Fever >100.5/OLIVA Acetaminophen (Acetaminophen 650 Mg Rect Supp) 650 mg [place] Q4H PRN PRN Reason: Fever >101 Last Admin: 12/05/20 05:09 Dose: 650 mg Documented by: Albuterol/Ipratropium (Ipratropium/Albuterol Sulfate 3 Ml Ampul.Neb) 1 ampul IH Q4HRT [facility] Last Admin: 12/05/20 15:01 Dose: Not Given Documented by: Enoxaparin Sodium (Enoxaparin 40 Mg/0.4 Ml Inj) 40 mg SUB-Q QDAY@2200 ROSETTA; Protocol Levofloxacin/Dextrose (Levaquin 750mg/150ml) 750 mg in 150 mls @ 100 mls/hr IV Q24H ROSETTA; Protocol Last Admin: 12/05/20 05:09 Dose: 100 mls/hr Documented by: Magnesium Hydroxide (Magnesium Hydroxide (Mom) Oral Liqd Udc) 30 ml PO Q4H PRN PRN Reason: Constipation Methylprednisolone Sodium Succinate (Methylprednisolone Sod Succinate 40 Mg/1 Ml Inj) 40 mg IV Q8HR [facility] Last Admin: 12/05/20 14:00 Dose: 40 mg Documented by: Morphine Sulfate (Morphine 2 Mg/1 Ml Inj) 2 mg IV Q4H PRN PRN Reason: Pain, Moderate (4-6) Morphine Sulfate (Morphine 4 Mg/1 Ml Inj) 4 mg IV Q4H PRN PRN Reason: Pain , Severe (7-10) Sodium Chloride (Sodium Chloride 0.9% 10 Ml Flush Syringe) 10 ml IV BID [facility] Last Admin: 12/05/20 10:36 Dose: Not Given Documented by: Sodium Chloride (Sodium Chloride 0.9% 10 Ml Flush Syringe) 10 ml IV PRN PRN PRN Reason: LINE FLUSH Physical Examination Vital signs: Vital Signs Temp Pulse Resp BP Pulse Ox 100.3 F H 107 H 20 126/81 97 12/04/20 20:06 12/04/20 20:06 12/04/20 20:06 12/04/20 20:06 12/04/20 20:06 Results - Laboratory Findings CBC and BMP: 12/06/20 04:38 12/06/20 04:38 ABG ABG pH 7.273 pH Units (7.350-7.450) L 12/05/20 13:46 ABG pCO2 94.0 mm Hg 12/05/20 13:46 ABG pO2 95.1 mm Hg (80.0-90.0) H 12/05/20 13:46 ABG O2 Saturation 96.8 % (95.0-99.0) 12/05/20 13:46 PT/INR, D-dimer PT 13.2 Sec. (12.2-14.9) 12/04/20 20:45 INR 0.90 (0.87-1.13) 12/04/20 20:45 Abnormal lab findings: Abnormal Labs 12/04/20 12/04/20 12/04/20 20:45 20:45 21:08 WBC 11.4 H MCV 97 H RDW 15.7 H [place] % (Auto) 10.6 H [place] # (Auto) 1.2 H ABG pH ABG pO2 ABG HCO3 ABG O2 Saturation ABG Base Excess ABG Carboxyhemoglobin Oxyhemoglobin Chloride 96.2 L Carbon Dioxide 35 H BUN 7 L Creatinine 0.7 L Glucose 126 H POC Glucose 115 H Acetaminophen 12/04/20 12/05/20 12/05/20 22:35 01:15 04:25 WBC MCV RDW [place] % (Auto) [place] # (Auto) ABG pH 7.156 L* 7.206 L 7.233 L ABG pO2 70.1 L ABG HCO3 43.1 H 41.7 H 42.0 H ABG O2 Saturation 93.3 L ABG Base Excess 9.0 H 9.1 H 10.0 H ABG Carboxyhemoglobin 8.9 H 6.7 H 5.4 H Oxyhemoglobin 86.7 L 86.5 L 90.7 L Chloride Carbon Dioxide BUN Creatinine Glucose POC Glucose Acetaminophen 12/05/20 12/05/20 05:51 13:46 WBC MCV RDW [place] % (Auto) [place] # (Auto) ABG pH 7.273 L ABG pO2 95.1 H ABG HCO3 42.5 H ABG O2 Saturation ABG Base Excess 11.1 H ABG Carboxyhemoglobin Oxyhemoglobin 93.0 L Chloride Carbon Dioxide BUN Creatinine Glucose POC Glucose Acetaminophen 5.0 L
[2020-12-05] MEDS: ENOXAPARIN 40 MG/0.4 ML INJ SUB-Q SCH (23:20)
[2020-12-05] MEDS ORDERED: VANCOMYCIN 2,000 MG in SODIUM CHLORIDE 0.9% 500 ML 500 ML IV ONE (23:45)
[2020-12-05] MEDS ORDERED: VANCOMYCIN PHARMACY TO DOSE IV SCH (23:45)
[2020-12-06 00:16] LABS: ABG Base Excess 9.1 mmol/L (-2.0-3.0); ABG HCO3 38.3 mmol/L (20.0-26.0); ABG PCO2 73.7 mm Hg; ABG PH 7.333 pH Units (7.350-7.450); ABG PO2 132.1 mm Hg (80.0-90.0)
[2020-12-06 00:28] LABS: ABG Methemoglobin 0.5 % (0.0-1.5); ABG Oxygen Saturation 98.3 % (95.0-99.0)
[2020-12-06] MEDS: IPRATROPIUM/ALBUTEROL SULFATE 3 ML AMPUL.NEB IH SCH ×5 (04:13→20:07)
[2020-12-06 05:10] LABS: Basophils % (Auto) 0.2 % (0.0-1.8); Hematocrit 44.5 % (35.5-45.6); Hemoglobin 14.4 gm/dl (11.8-15.2); Lymphocytes % (Auto) 9.9 % (13.4-35.0); Mean Corpuscular HGB Conc 32 % (32-34); Mean Corpuscular Volume 96 fl (84-94); Monocytes # (Auto) 0.5 K/mm3 (0.0-0.8); Monocytes % (Auto) 5.6 % (0.0-7.3); Platelet Count 198 K/mm3 (140-440); Red Blood Count 4.64 M/mm3 (3.65-5.03); Red Cell Distribution Width 15.3 % (13.2-15.2)
[2020-12-06 05:23] LABS: INR 0.93 (0.87-1.13)
[2020-12-06 05:30] LABS: Blood Urea Nitrogen 12 mg/dL (9-20); Hemolysis Index 10
[2020-12-06 06:10] LABS: BUN/Creatinine Ratio 20
[2020-12-06] MEDS: methylPREDNISolone Sod Succinate 40 MG/1 ML INJ IV SCH ×3 (06:51→21:13)
[2020-12-06] MEDS ORDERED: VANCOMYCIN 1,500 MG in SODIUM CHLORIDE 0.9% 500 ML 500 ML IV SCH (08:00)
--- NOTE | 2020-12-06 12:34 | Progress Note ---
Subjective Date of service: 12/06/20 Objective Vital Signs - 12hr 12/06/20 12/06/20 12/06/20 01:26 01:31 02:01 Temperature Pulse Rate 69 69 Pulse Rate [ Bilateral Throughout] Respiratory 24 22 22 Rate Respiratory Rate [Bilateral Throughout] Blood Pressure 109/64 113/62 O2 Sat by Pulse 98 100 Oximetry 12/06/20 12/06/20 12/06/20 03:01 03:31 04:01 Temperature Pulse Rate 69 65 68 Pulse Rate [ Bilateral Throughout] Respiratory 25 H 25 H 24 Rate Respiratory Rate [Bilateral Throughout] Blood Pressure 109/67 110/59 104/81 O2 Sat by Pulse 97 97 94 Oximetry 12/06/20 12/06/20 12/06/20 04:14 04:31 05:01 Temperature Pulse Rate 70 68 68 Pulse Rate [ Bilateral Throughout] Respiratory 25 H 25 H 25 H Rate Respiratory Rate [Bilateral Throughout] Blood Pressure 104/81 123/91 110/80 O2 Sat by Pulse 97 100 94 Oximetry 12/06/20 12/06/20 12/06/20 05:31 06:31 07:01 Temperature Pulse Rate 71 Pulse Rate [ Bilateral Throughout] Respiratory 25 H Rate Respiratory Rate [Bilateral Throughout] Blood Pressure 115/67 126/81 111/68 O2 Sat by Pulse 93 94 94 Oximetry 12/06/20 12/06/20 12/06/20 07:31 08:00 08:01 Temperature 98.5 F Pulse Rate 76 Pulse Rate [ Bilateral Throughout] Respiratory 22 Rate Respiratory Rate [Bilateral Throughout] Blood Pressure 130/110 110/50 O2 Sat by Pulse 98 96 100 Oximetry 12/06/20 12/06/20 12/06/20 08:31 08:41 09:01 Temperature Pulse Rate 72 70 82 Pulse Rate [ 72 Bilateral Throughout] Respiratory 16 26 H 21 Rate Respiratory 26 H Rate [Bilateral Throughout] Blood Pressure 125/62 125/62 124/61 O2 Sat by Pulse 96 96 Oximetry 12/06/20 12/06/20 12/06/20 09:31 10:01 11:01 Temperature Pulse Rate 82 Pulse Rate [ Bilateral Throughout] Respiratory 19 Rate Respiratory Rate [Bilateral Throughout] Blood Pressure 124/61 124/61 114/68 O2 Sat by Pulse 100 96 Oximetry 12/06/20 12/06/20 11:31 12:01 Temperature Pulse Rate 81 87 Pulse Rate [ Bilateral Throughout] Respiratory 20 29 H Rate Respiratory Rate [Bilateral Throughout] Blood Pressure 132/78 119/68 O2 Sat by Pulse 96 91 Oximetry CBC and BMP: 12/06/20 04:38 12/06/20 04:38 ABG, PT/INR, D-dimer: ABG ABG pH 7.273 pH Units (7.350-7.450) L 12/05/20 13:46 ABG pCO2 94.0 mm Hg 12/05/20 13:46 ABG pO2 95.1 mm Hg (80.0-90.0) H 12/05/20 13:46 ABG O2 Saturation 96.8 % (95.0-99.0) 12/05/20 13:46 PT/INR, D-dimer PT 13.5 Sec. (12.2-14.9) 12/06/20 04:38 INR 0.93 (0.87-1.13) 12/06/20 04:38 Abnormal lab findings: Abnormal Labs 12/04/20 12/04/20 12/04/20 20:45 20:45 21:08 WBC 11.4 H MCV 97 H RDW 15.7 H Lymph % (Auto) [place] % (Auto) 10.6 H Lymph # (Auto) [place] # (Auto) 1.2 H Seg Neutrophils % Seg Neutrophils # ABG pH ABG pO2 ABG HCO3 ABG O2 Saturation ABG Base Excess ABG Carboxyhemoglobin Oxyhemoglobin Chloride 96.2 L Carbon Dioxide 35 H BUN 7 L Creatinine 0.7 L Glucose 126 H POC Glucose 115 H Acetaminophen 12/04/20 12/04/20 12/05/20 22:35 23:45 01:15 WBC MCV RDW Lymph % (Auto) [place] % (Auto) Lymph # (Auto) [place] # (Auto) Seg Neutrophils % Seg Neutrophils # ABG pH 7.156 L* 7.333 L 7.206 L ABG pO2 132.1 H 70.1 L ABG HCO3 43.1 H 38.3 H 41.7 H ABG O2 Saturation 93.3 L ABG Base Excess 9.0 H 9.1 H 9.1 H ABG Carboxyhemoglobin 8.9 H 6.7 H Oxyhemoglobin 86.7 L 86.5 L Chloride Carbon Dioxide BUN Creatinine Glucose POC Glucose Acetaminophen 12/05/20 12/05/20 12/05/20 04:25 05:51 13:46 WBC MCV RDW Lymph % (Auto) [place] % (Auto) Lymph # (Auto) [place] # (Auto) Seg Neutrophils % Seg Neutrophils # ABG pH 7.233 L 7.273 L ABG pO2 95.1 H ABG HCO3 42.0 H 42.5 H ABG O2 Saturation ABG Base Excess 10.0 H 11.1 H ABG Carboxyhemoglobin 5.4 H Oxyhemoglobin 90.7 L 93.0 L Chloride Carbon Dioxide BUN Creatinine Glucose POC Glucose Acetaminophen 5.0 L 12/06/20 12/06/20 04:38 04:38 WBC MCV 96 H RDW 15.3 H Lymph % (Auto) 9.[address] [place] % (Auto) Lymph # (Auto) 1.[address] [place] # (Auto) Seg Neutrophils % 84.3 H Seg Neutrophils # 8.2 H ABG pH ABG pO2 ABG HCO3 ABG O2 Saturation ABG Base Excess ABG Carboxyhemoglobin Oxyhemoglobin Chloride 95.3 L Carbon Dioxide 36 H BUN Creatinine 0.6 L Glucose 135 H POC Glucose Acetaminophen
--- NOTE | 2020-12-06 15:14 | Progress Note ---
Assessment and Plan Assessment and plan: 40-year-old -[place]ian male with known history of COPD presenting to the emergency room today in respiratory distress. Patient is known not to be quite compliant with his medications. Upon arrival in the emergency room oxygen saturation was about 74% on room air. He was not quite arousable upon arrival and was given some Narcan without any significant improvement. Patient was unable to give any good history most of the history was obtained from the ER staff. Work-up in the emergency room today, CT angiogram of the chest reveals:1. No CT evidence for pulmonary embolism. 2. Cholelithiasis 3. Moderate hepatic steatosis Chest x-ray: Reveals no acute findings. Labs however was significant for PCO2 of 124.7. Patient has been placed on BiPAP. During the course of this documentation, I was notified that patient has been spiking a low-grade fever. Blood cultures has been requested and patient placed on empiric IV antibiotics. 12/05: Continue supportive care, continue on BiPAP, Pulmonary consult. May need some diuresis, Continue with IMCU care, will try to obtain most recent record 12/06: Patient seen and examined resting well, no new distress but still with intermittent confusion, continue supportive care, will benefit from a sitter. Valery consulted. 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 (1) Acute respiratory failure with hypoxia and hypercapnia Current Visit: No Status: Acute Plan to address problem: Patient has been placed on BiPAP. Will monitor ABG. Consult placed to airborne operations manager for evaluation. (2) COPD with acute exacerbation Current Visit: No Status: Acute Plan to address problem: We will place patient on nebulizing treatments and IV steroid. We will keep O2 saturation greater or equal to 92%. (3) History of behavioral and mental health problems-Schiozophrenia Current Visit: No Status: Acute Plan to address problem: We will resume routine home medications once reconciled. (4) Morbid obesity with BMI of 40.0-44.9, adult Current Visit: No Status: Chronic Plan to address problem: Dietary consult requested For evaluation. (5) DVT prophylaxis Current Visit: No Status: Acute Plan to address problem: Patient placed on subcutaneous Lovenox. (6) Full code status Current Visit: Yes Status: Acute Plan to address problem: Patient is full code. History Interval history: Patient seen and examined, in no acute distress but lethargic, and on BiPAP. Tells me he leaves with a room mate but unable to give more information. He also confirms that he has been vaccinated. Hospitalist Physical - Physical exam Narrative exam: General appearance: Present: mild distress, well-nourished, obese, other (On BiPAP) - EENT Eyes: Present: PERRL, EOM intact. Absent: scleral icterus ENT: hearing intact, clear oral mucosa, dentition normal - Neck Neck: Present: supple, normal ROM - Respiratory Respiratory effort: normal Respiratory: bilateral: diminished - Cardiovascular Rhythm: regular Heart Sounds: Present: S1 & S2. Absent: gallop, systolic murmur, diastolic murm ur, rub, click - Extremities Extremities: no ischemia, pulses intact, pulses symmetrical, No edema, normal temperature, normal color, Full ROM Peripheral Pulses: within normal limits - Abdominal General gastrointestinal: Present: soft, non-tender, non-distended, normal bowel sounds. Absent: mass - Integumentary Integumentary: Present: clear, warm, dry. Absent: rash - Musculoskeletal Musculoskeletal: strength equal bilaterally - Psychiatric Psychiatric: cooperative - Neurologic Neurologic: CNII-XII intact, no focal deficits, moves all extremities - Constitutional Vitals: Temp Pulse Resp BP Pulse Ox 98.5 F 73 22 119/68 95 12/06/20 08:00 12/06/20 12:58 12/06/20 12:58 12/06/20 12:01 12/06/20 12:58 General appearance: Present: mild distress, well-nourished, obese, other (On BiPAP) HEART Score - HEART Score Troponin: Troponin T < 0.010 ng/mL (0.00-0.029) 12/04/20 23:34 Results - Labs CBC & Chem 7: 12/06/20 04:38 12/06/20 04:38 Labs: Laboratory Last Values WBC 9.7 K/mm3 (4.5-11.0) 12/06/20 04:38 RBC 4.64 M/mm3 (3.65-5.03) 12/06/20 04:38 Hgb 14.4 gm/dl (11.8-15.2) 12/06/20 04:38 Hct 44.5 % (35.5-45.6) 12/06/20 04:38 MCV 96 fl (84-94) H 12/06/20 04:38 MCH 31 pg (28-32) 12/06/20 04:38 MCHC 32 % (32-34) 12/06/20 04:38 RDW 15.3 % (13.2-15.2) H 12/06/20 04:38 Plt Count 198 K/mm3 (140-440) 12/06/20 04:38 Lymph % (Auto) 9.9 % (13.4-35.0) L 12/06/20 04:38 Churchill % (Auto) 5.6 % (0.0-7.3) 12/06/20 04:38 Eos % (Auto) 0.0 % (0.0-4.3) 12/06/20 04:38 Baso % (Auto) 0.2 % (0.0-1.8) 12/06/20 04:38 Lymph # (Auto) 1.0 K/mm3 (1.2-5.4) L 12/06/20 04:38 Churchill # (Auto) 0.5 K/mm3 (0.0-0.8) 12/06/20 04:38 Eos # (Auto) 0.0 K/mm3 (0.0-0.4) 12/06/20 04:38 Baso # (Auto) 0.0 K/mm3 (0.0-0.1) 12/06/20 04:38 Seg Neutrophils % 84.3 % (40.0-70.0) H 12/06/20 04:38 Seg Neutrophils # 8.2 K/mm3 (1.8-7.7) H 12/06/20 04:38 PT 13.5 Sec. (12.2-14.9) 12/06/20 04:38 INR 0.93 (0.87-1.13) 12/06/20 04:38 APTT 26.4 Sec. (24.2-36.6) 12/04/20 20:45 ABG pH 7.273 pH Units (7.350-7.450) L 12/05/20 13:46 ABG pCO2 94.0 mm Hg 12/05/20 13:46 ABG pO2 95.1 mm Hg (80.0-90.0) H 12/05/20 13:46 ABG HCO3 42.5 mmol/L (20.0-26.0) H 12/05/20 13:46 ABG O2 Saturation 96.8 % (95.0-99.0) 12/05/20 13:46 ABG O2 Content 19.4 (0.0-44) 12/05/20 13:46 ABG Base Excess 11.1 mmol/L (-2.0-3.0) H 12/05/20 13:46 ABG Hemoglobin 14.8 gm/dl (14.0-18.0) 12/05/20 13:46 ABG Carboxyhemoglobin 3.4 % (0.0-5.0) 12/05/20 13:46 ABG Methemoglobin 0.5 % (0.0-1.5) 12/05/20 13:46 Oxyhemoglobin 93.0 % (95.0-99.0) L 12/05/20 13:46 FiO2 40 % 12/05/20 13:46 Sodium 144 mmol/L (137-145) 12/06/20 04:38 Potassium 4.9 mmol/L (3.6-5.0) 12/06/20 04:38 Chloride 95.3 mmol/L (98-107) L 12/06/20 04:38 Carbon Dioxide 36 mmol/L (22-30) H 12/06/20 04:38 Anion Gap 18 mmol/L 12/06/20 04:38 BUN 12 mg/dL (9-20) 12/06/20 04:38 Creatinine 0.6 mg/dL (0.8-1.3) L 12/06/20 04:38 Estimated GFR > 60 ml/min 12/06/20 04:38 BUN/Creatinine Ratio 20 % 12/06/20 04:38 Glucose 135 mg/dL (75-100) H 12/06/20 04:38 POC Glucose 115 mg/dL (70-105) H 12/04/20 21:08 Lactic Acid 0.80 mmol/L (0.7-2.0) 12/04/20 20:45 Calcium 9.0 mg/dL (8.4-10.2) 12/06/20 04:38 Magnesium 2.20 mg/dL (1.7-2.3) 12/04/20 20:45 Total Bilirubin 0.20 mg/dL (0.1-1.2) 12/04/20 20:45 AST 16 units/L (5-40) 12/04/20 20:45 ALT 19 units/L (7-56) 12/04/20 20:45 Alkaline Phosphatase 95 units/L (35-129) 12/04/20 20:45 Total Creatine Kinase 114 units/L (55-170) 12/04/20 20:45 CK-MB (CK-2) 2.0 ng/mL (0.0-4.0) 12/04/20 20:45 CK-MB (CK-2) Rel Index 1.7 (0-4) 12/04/20 20:45 Troponin T < 0.010 ng/mL (0.00-0.029) 12/04/20 23:34 Total Protein 7.1 g/dL (6.3-8.2) 12/04/20 20:45 Albumin 4.1 g/dL (3.9-5) 12/04/20 20:45 Albumin/Globulin Ratio 1.4 % 12/04/20 20:45 Lipase 17 units/L (13-60) 12/04/20 20:45 Urine Color Yellow (Yellow) 12/04/20 22:16 Urine Turbidity Clear (Clear) 12/04/20 22:16 Urine pH 5.0 (5.0-7.0) 12/04/20 22:16 Ur Specific Mccall 1.025 (1.003-1.030) 12/04/20 22:16 Urine Protein 30 mg/dl mg/dL (Negative) 12/04/20 22:16 Urine Glucose (UA) Neg mg/dL (Negative) 12/04/20 22:16 Urine Ketones Neg mg/dL (Negative) 12/04/20 22:16 Urine Blood Neg (Negative) 12/04/20 22:16 Urine Nitrite Neg (Negative) 12/04/20 22:16 Urine Bilirubin Neg (Negative) 12/04/20 22:16 Urine Urobilinogen 2.0 mg/dL (<2.0) 12/04/20 22:16 Ur Leukocyte Esterase Neg (Negative) 12/04/20 22:16 Urine WBC (Auto) 2.0 /HPF (0.0-6.0) 12/04/20 22:16 Urine RBC (Auto) 4.0 /HPF (0.0-6.0) 12/04/20 22:16 U Epithel Cells (Auto) < 1.0 /HPF (0-13.0) 12/04/20 22:16 Urine Mucus 2+ /HPF 12/04/20 22:16 Urine Opiates Screen Negative 12/04/20 22:16 Urine Methadone Screen Negative 12/04/20 22:16 Acetaminophen 5.0 ug/mL (10.0-30.0) L 12/05/20 05:51 Ur Barbiturates Screen Negative 12/04/20 22:16 Ur Phencyclidine Scrn Negative 12/04/20 22:16 Ur Amphetamines Screen Negative 12/04/20 22:16 U Benzodiazepines Scrn Negative 12/04/20 22:16 Urine Cocaine Screen Negative 12/04/20 22:16 U Marijuana (THC) Screen Negative 12/04/20 22:16 Drugs of Abuse Note Disclamer 12/04/20 22:16 Microbiology: Microbiology 12/04/20 20:45 Peripheral/Venous Blood Culture - Preliminary 12/04/20 20:45 Peripheral/Venous Blood Culture - Preliminary Active Medications - Current Medications Current Medications: Generic Name Dose Route Start Last Admin Trade Name Freq PRN Reason Stop Dose Admin Acetaminophen 650 mg 12/05/20 00:53 Acetaminophen 325 Mg Tab PO Q6H PRN Pain MILD(1-3)/Fever >100.5/OLIVA Acetaminophen 650 mg 12/05/20 04:52 12/05/20 05:09 Acetaminophen 650 Mg Rect Supp MA 650 mg Q4H PRN Administration Fever >101 Albuterol/Ipratropium 1 ampul 12/05/20 04:00 12/06/20 12:58 Ipratropium/Albuterol Sulfate 3 Ml Ampul.Neb IH 1 ampul Q4HRT ROSETTA Administration Enoxaparin Sodium 40 mg 12/05/20 22:00 12/05/20 23:20 Enoxaparin 40 Mg/0.4 Ml Inj SUB-Q 40 mg QDAY@2200 ROSETTA Administration Protocol Levofloxacin/Dextrose 750 mg in 150 mls @ 100 mls/hr 12/05/20 05:00 12/06/20 06:51 Levaquin 750mg/150ml IV 12/09/20 06:29 100 mls/hr Q24H ROSETTA Administration Protocol Vancomycin HCl 1,500 mg/ 530 mls @ 333.333 mls/hr 12/06/20 18:00 Sodium Chloride IV 0200,1000,1800 ROSETTA Magnesium Hydroxide 30 ml 12/05/20 00:53 Magnesium Hydroxide (Mom) Oral Liqd Udc PO Q4H PRN Constipation Methylprednisolone Sodium Succinate 40 mg 12/05/20 06:00 12/06/20 13:40 Methylprednisolone Sod Succinate 40 Mg/1 Ml Inj IV 40 mg Q8HR ROSETTA Administration Morphine Sulfate 2 mg 12/05/20 00:53 Morphine 2 Mg/1 Ml Inj IV Q4H PRN Pain, Moderate (4-6) Morphine Sulfate 4 mg 12/05/20 00:53 Morphine 4 Mg/1 Ml Inj IV Q4H PRN Pain , Severe (7-10) Sodium Chloride 10 ml 12/05/20 10:00 12/06/20 10:47 Sodium Chloride 0.9% 10 Ml Flush Syringe IV 10 ml BID ROSETTA Administration Sodium Chloride 10 ml 12/05/20 00:53 Sodium Chloride 0.9% 10 Ml Flush Syringe IV PRN PRN LINE FLUSH Nutrition/Malnutrition Assess - Dietary Evaluation Nutrition/Malnutrition Findings: Nutrition Notes Start: 12/05/20 11:13 Freq: Status: Active Protocol: Document 12/05/20 11:14 GB (Rec: 12/05/20 11:36 GB [email or web address]) Nutrition Notes Need for Assessment generated from: MD Order,Education Initial or Follow up Assessment Current Diagnosis COPD Other Pertinent Diagnosis Respiratory distress, morbid obesity Current Diet regular Labs/Tests 12/04: glucose 126, BUN 7, creatinine 0.7 Pertinent Medications levofloxacin/D5 @100ml/hr ( 408kcal) Height 5 ft 10 in Weight 140.61 kg [place] Body Weight (kg) 75.45 BMI 44.4 Weight change and time frame Admit weight recorded. IBW: 75.45kg %IBW: 186% Weight Status Morbidly Obese Subjective/Other Information Per chart: confused conversation, sleeping with difficulty to arouse. Pt currently is not a candidate for education. Upon admit to floor/improvement in alertness healthy nutrition education handout will be provided. Pt on BiPaP Percent of energy/protein needs met: unable to assess at this time as pt is new and reported to be difficult to arouse. Burn Absent Trauma Absent GI Symptoms None Food Allergy No Current % PO Other Minimum of two criteria No #1 Nutrition Diagnosis Overweight/obesity Etiology BMI over 40 As Evidenced by Signs and Symptoms BMI 44.5, 186% IBW Diagnosis Progress(for reassessment Continues documentation) Is patient on ventilator? No Is Patient Ambulatory and/or Out of Bed No REE-([place]-confined to bed) 2794.872 Kcal/Kg value to use for calculation 15 Approximate Energy Requirements Using 2109 kcal/Kg Calculation Used for Recommendations Kcal/kg Additional Notes Protein 0.6-0.8 g/kg @ 141k-113g Fluids: 1 ml/kcal or per MD Nutrition Intervention Change Diet Order: continue Nutrition Support: n/a Add Supplement/Snack (indicate name/kcal n/a /protein ) Education Handouts Provided AND: healthy nutrition therapy education at f/u Barriers to Learning Cognitive/Verbal Goal #1 PO intake of meals to be 75% or greater daily during LOS Goal #2 At follow up, provide nutrition education handout on healthy nutrition therpy Follow-Up By: 12/09/20 Additional Comments f/u: provide nutrition education, po intake
[2020-12-06] MEDS: VANCOMYCIN 1,500 MG in SODIUM CHLORIDE 0.9% 500 ML 500 ML IV SCH (18:42)
[2020-12-06] MEDS: ENOXAPARIN 40 MG/0.4 ML INJ SUB-Q SCH (21:13)
[2020-12-07] MEDS: IPRATROPIUM/ALBUTEROL SULFATE 3 ML AMPUL.NEB IH SCH ×6 (00:22→22:34)
[2020-12-07] MEDS: VANCOMYCIN 1,500 MG in SODIUM CHLORIDE 0.9% 500 ML 500 ML IV SCH ×3 (02:29→19:11)
[2020-12-07] MEDS: methylPREDNISolone Sod Succinate 40 MG/1 ML INJ IV SCH ×3 (05:49→21:29)
--- NOTE | 2020-12-07 08:52 | Discharge Summary ---
Providers - Providers Date of Admission: 12/04/20 23:26 Attending physician: ELIUD THOMAS MD 12/05/20 00:53 Consult to Dietitian/Nutrition [CONS] Routine Physician Instructions: Reason For Exam: Reason for Consult: Diet education Consult to Physician [CONS] Routine Comment: Consulting Provider: KIA JAIME Physician Instructions: Reason For Exam: HYPERCAPNEIC RESP. FAILURE 12/06/20 10:37 Consult to Physician [CONS] Routine Comment: Consulting Provider: TROY CLIFTON Physician Instructions: Reason For Exam: schizophrenia Primary care physician: PROFESSOR OF GEOGRAPHY Hospitalization Reason for admission: Shortness of breath Condition: Fair Hospital course: 40-year-old -[place] male with known history of COPD presenting to the emergency room today in respiratory distress. Patient is known not to be quite compliant with his medications. Upon arrival in the emergency room oxygen saturation was about 74% on room air. He was not quite arousable upon arrival and was given some Narcan without any significant improvement. Patient was unable to give any good history most of the history was obtained from the ER staff. Work-up in the emergency room today, CT angiogram of the chest reveals:1. No CT evidence for pulmonary embolism. 2. Cholelithiasis 3. Moderate hepatic steatosis Chest x-ray: Reveals no acute findings. Labs however was significant for PCO2 of 124.7. Patient has been placed on BiPAP. During the course of this documentation, I was notified that patient has been spiking a low-grade fever. Blood cultures has been requested and patient placed on empiric IV antibiotics. 12/05: Continue supportive care, continue on BiPAP, Pulmonary consult. May need some diuresis, Continue with IMCU care, will try to obtain most recent record 12/06: Patient seen and examined resting well, no new distress but still with intermittent confusion, continue supportive care, will benefit from a sitter. Valery consulted. 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 12/07: Patient appears more rested this morning. Discussed with case management and also with patient's pulmonary physician that he will benefit from NIV which they agree for his chronic obstructive pulmonary disease underlying breath stacking and hypercapnia. Psych consulted already 12/08: Continue supportive care, Anticipate discharge in am when placement rectified. 12/09: Patient doing well this morning. Yesterday he was found ambulating the hallway without his oxygen and was visibly short of breath this is improved this morning he is ambulating stable of giving him counseling again about use of oxygen he verbalized understanding. (1) Acute on chronic respiratory failure with hypoxia and hypercapnia Current Visit: No Status: Acute Plan to address problem: Patient has been placed on BiPAP. Will monitor ABG. Consult placed to baccarat dealer for evaluation. (2) COPD with acute exacerbation Current Visit: No Status: Acute Plan to address problem: We will place patient on nebulizing treatments and IV steroid. We will keep O2 saturation greater or equal to 92%. (3) Chronic respiratory failure with hypercapnia due to COPD The patient has been admitted to the hospital several times because of respiratory distress. He continues to experience C02 retention and breath stacking. He was placed on BIPAP but needed to be switched to the NIV with the targeted tidal volume to make him comfortable. Recommending NIV to improve his quality of life and prevent future hospitalization. (4) History of behavioral and mental health problems-Schiozophrenia Current Visit: No Status: Acute Plan to address problem: We will resume routine home medications once reconciled. (5) Morbid obesity with BMI of 40.0-44.9, adult Current Visit: No Status: Chronic Plan to address problem: Dietary consult requested For evaluation. (6) schizophrenia Disposition: HOME HEALTH CARE SERVICE Final Discharge Diagnosis (Prints w/discharge instructions): Acute on chronic hypoxic and hypercapnic respiratory failure Time spent for discharge: 35 minutes Core Measure Documentation - Palliative Care Palliative Care/ Comfort Measures: Not Applicable - Core Measures Any of the following diagnoses?: none Exam - Physical Exam Narrative exam: General appearance: Present: mild distress, well-nourished, obese, ambulating in no distress - EENT Eyes: Present: PERRL, EOM intact. Absent: scleral icterus ENT: hearing intact, clear oral mucosa, dentition normal - Neck Neck: Present: supple, normal ROM - Respiratory Respiratory effort: normal Respiratory: bilateral: diminished - Cardiovascular Rhythm: regular Heart Sounds: Present: S1 & S2. Absent: gallop, systolic murmur, diastolic murmur, rub, click - Extremities Extremities: no ischemia, pulses intact, pulses symmetrical, No edema, normal temperature, normal color, Full ROM Peripheral Pulses: within normal limits - Abdominal General gastrointestinal: Present: soft, non-tender, non-distended, normal bowel sounds. Absent: mass - Integumentary Integumentary: Present: clear, warm, dry. Absent: rash - Musculoskeletal Musculoskeletal: strength equal bilaterally - Psychiatric Psychiatric: cooperative - Neurologic Neurologic: CNII-XII intact, no focal deficits, moves all extremities - Constitutional Vitals: Temp Pulse Resp BP Pulse Ox 97.8 F 88 18 122/58 90 12/07/20 07:53 12/07/20 07:53 12/07/20 07:53 12/07/20 07:53 12/07/20 07:53 Plan Activity: advance as tolerated, fall precautions Diet: low fat Special Instructions: record daily weights, record daily BP diary, occupational therapy, home oxygen via (nasal cannula @ 3 liters per minute), home health RN Durable Medical Equipment Needed Upon Discharge: other (continue with Home BiPAP) Plan of Treatment: Must use his NIV EVERY NIGHT and oxygen during the day. Must follow with pulmonary for further evaluation and sleep study Follow up with: PRIMARY CAREMD [Primary Care Provider] - 3-5 Days DIPAK CHACON MD [Staff Physician] - 7 Days TROY CLIFTON MD [Staff Physician] - 7 Days Prescriptions: Albuterol Sulfate [Albuterol 0.63% NEBS] 0.63 mg IH TID PRN #90 vial PRN Reason: Wheezing PARoxetine [Paxil] 10 mg PO DAILY #30 tablet Prednisone [predniSONE 10 mg (6-Day Pack, 21 Tabs)] 10 mg PO .TAPER #1 tab.ds.pk Albuterol Sulfate [Proventil Hfa] 2 puff IH Q4HR PRN #1 hfa.aer.ad PRN Reason: Wheezing risperiDONE [RisperDAL] 1 mg PO QAM #30 tablet Budesonide/Formoterol Fumarate [Symbicort 160-4.5 Mcg Inhaler] 2 puff IH BID #1 hfa.aer.ad OLANzapine [Zyprexa] 10 mg PO DAILY 30 Days #30 Ipratropium/Albuterol Sulfate [DUONEB *Not for PRN Use*] 1 ampul IH TIDRT #50 ampul.neb
--- NOTE | 2020-12-07 13:07 | Progress Note ---
Assessment and Plan Assessment and plan: 40-year-old -[place] Citizen male with known history of COPD presenting to the emergency room today in respiratory distress. Patient is known not to be quite compliant with his medications. Upon arrival in the emergency room oxygen saturation was about 74% on room air. He was not quite arousable upon arrival and was given some Narcan without any significant improvement. Patient was unable to give any good history most of the history was obtained from the ER staff. Work-up in the emergency room today, CT angiogram of the chest reveals:1. No CT evidence for pulmonary embolism. 2. Cholelithiasis 3. Moderate hepatic steatosis Chest x-ray: Reveals no acute findings. Labs however was significant for PCO2 of 124.7. Patient has been placed on BiPAP. During the course of this documentation, I was notified that patient has been spiking a low-grade fever. Blood cultures has been requested and patient placed on empiric IV antibiotics. 12/05: Continue supportive care, continue on BiPAP, Pulmonary consult. May need some diuresis, Continue with IMCU care, will try to obtain most recent record 12/06: Patient seen and examined resting well, no new distress but still with intermittent confusion, continue supportive care, will benefit from a sitter. Valery consulted. 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 12/07: Patient appears more rested this morning. Discussed with case management and also with patient's pulmonary physician that he will benefit from NIV which they agree for his chronic obstructive pulmonary disease underlying breath stacking and hypercapnia. Psych consulted already (1) Acute on chronic respiratory failure with hypoxia and hypercapnia Current Visit: No Status: Acute Plan to address problem: Patient has been placed on BiPAP. Will monitor ABG. Consult placed to nurse clinician for evaluation. (2) COPD with acute exacerbation Current Visit: No Status: Acute Plan to address problem: We will place patient on nebulizing treatments and IV steroid. We will keep O2 saturation greater or equal to 92%. (3) History of behavioral and mental health problems-Schiozophrenia Current Visit: No Status: Acute Plan to address problem: We will resume routine home medications once reconciled. (4) Morbid obesity with BMI of 40.0-44.9, adult Current Visit: No Status: Chronic Plan to address problem: Dietary consult requested For evaluation. (5) schizophrenia (6) DVT prophylaxis Current Visit: No Status: Acute Plan to address problem: Patient placed on subcutaneous Lovenox. (7) Full code status Current Visit: Yes Status: Acute Plan to address problem: Patient is full code. History Interval history: Patient seen and examined, in no acute distress more awake more rested. Still intermittently refusing BiPAP, but wears for some time through the night. Hospitalist Physical - Physical exam Narrative exam: General appearance: Present: mild distress, well-nourished, obese, other (On BiPAP) - EENT Eyes: Present: PERRL, EOM intact. Absent: scleral icterus ENT: hearing intact, clear oral mucosa, dentition normal - Neck Neck: Present: supple, normal ROM - Respiratory Respiratory effort: normal Respiratory: bilateral: diminished - Cardiovascular Rhythm: regular Heart Sounds: Present: S1 & S2. Absent: gallop, systolic murmur, diastolic murmur, rub, click - Extremities Extremities: no ischemia, pulses intact, pulses symmetrical, No edema, normal temperature, normal color, Full ROM Peripheral Pulses: within normal limits - Abdominal General gastrointestinal: Present: soft, non-tender, non-distended, normal bowel sounds. Absent: mass - Integumentary Integumentary: Present: clear, warm, dry. Absent: rash - Musculoskeletal Musculoskeletal: strength equal bilaterally - Psychiatric Psychiatric: cooperative - Neurologic Neurologic: CNII-XII intact, no focal deficits, moves all extremities - Constitutional Vitals: Temp Pulse Resp BP Pulse Ox 97.3 F L 102 H 18 117/75 91 12/07/20 11:39 12/07/20 11:39 12/07/20 11:39 12/07/20 11:39 12/07/20 11:39 General appearance: Present: mild distress, well-nourished, obese, other (On BiPAP) HEART Score - HEART Score Troponin: Troponin T < 0.010 ng/mL (0.00-0.029) 12/04/20 23:34 Results - Labs CBC & Chem 7: 12/06/20 04:38 12/06/20 04:38 Labs: Laboratory Last Values WBC 9.7 K/mm3 (4.5-11.0) 12/06/20 04:38 RBC 4.64 M/mm3 (3.65-5.03) 12/06/20 04:38 Hgb 14.4 gm/dl (11.8-15.2) 12/06/20 04:38 Hct 44.5 % (35.5-45.6) 12/06/20 04:38 MCV 96 fl (84-94) H 12/06/20 04:38 MCH 31 pg (28-32) 12/06/20 04:38 MCHC 32 % (32-34) 12/06/20 04:38 RDW 15.3 % (13.2-15.2) H 12/06/20 04:38 Plt Count 198 K/mm3 (140-440) 12/06/20 04:38 Lymph % (Auto) 9.9 % (13.4-35.0) L 12/06/20 04:38 [place] % (Auto) 5.6 % (0.0-7.3) 12/06/20 04:38 Eos % (Auto) 0.0 % (0.0-4.3) 12/06/20 04:38 Baso % (Auto) 0.2 % (0.0-1.8) 12/06/20 04:38 Lymph # (Auto) 1.0 K/mm3 (1.2-5.4) L 12/06/20 04:38 [place] # (Auto) 0.5 K/mm3 (0.0-0.8) 12/06/20 04:38 Eos # (Auto) 0.0 K/mm3 (0.0-0.4) 12/06/20 04:38 Baso # (Auto) 0.0 K/mm3 (0.0-0.1) 12/06/20 04:38 Seg Neutrophils % 84.3 % (40.0-70.0) H 12/06/20 04:38 Seg Neutrophils # 8.2 K/mm3 (1.8-7.7) H 12/06/20 04:38 PT 13.5 Sec. (12.2-14.9) 12/06/20 04:38 INR 0.93 (0.87-1.13) 12/06/20 04:38 APTT 26.4 Sec. (24.2-36.6) 12/04/20 20:45 ABG pH 7.273 pH Units (7.350-7.450) L 12/05/20 13:46 ABG pCO2 94.0 mm Hg 12/05/20 13:46 ABG pO2 95.1 mm Hg (80.0-90.0) H 12/05/20 13:46 ABG HCO3 42.5 mmol/L (20.0-26.0) H 12/05/20 13:46 ABG O2 Saturation 96.8 % (95.0-99.0) 12/05/20 13:46 ABG O2 Content 19.4 (0.0-44) 12/05/20 13:46 ABG Base Excess 11.1 mmol/L (-2.0-3.0) H 12/05/20 13:46 ABG Hemoglobin 14.8 gm/dl (14.0-18.0) 12/05/20 13:46 ABG Carboxyhemoglobin 3.4 % (0.0-5.0) 12/05/20 13:46 ABG Methemoglobin 0.5 % (0.0-1.5) 12/05/20 13:46 Oxyhemoglobin 93.0 % (95.0-99.0) L 12/05/20 13:46 FiO2 40 % 12/05/20 13:46 Sodium 144 mmol/L (137-145) 12/06/20 04:38 Potassium 4.9 mmol/L (3.6-5.0) 12/06/20 04:38 Chloride 95.3 mmol/L (98-107) L 12/06/20 04:38 Carbon Dioxide 36 mmol/L (22-30) H 12/06/20 04:38 Anion Gap 18 mmol/L 12/06/20 04:38 BUN 12 mg/dL (9-20) 12/06/20 04:38 Creatinine 0.6 mg/dL (0.8-1.3) L 12/06/20 04:38 Estimated GFR > 60 ml/min 12/06/20 04:38 BUN/Creatinine Ratio 20 % 12/06/20 04:38 Glucose 135 mg/dL (75-100) H 12/06/20 04:38 POC Glucose 115 mg/dL (70-105) H 12/04/20 21:08 Lactic Acid 0.80 mmol/L (0.7-2.0) 12/04/20 20:45 Calcium 9.0 mg/dL (8.4-10.2) 12/06/20 04:38 Magnesium 2.20 mg/dL (1.7-2.3) 12/04/20 20:45 Total Bilirubin 0.20 mg/dL (0.1-1.2) 12/04/20 20:45 AST 16 units/L (5-40) 12/04/20 20:45 ALT 19 units/L (7-56) 12/04/20 20:45 Alkaline Phosphatase 95 units/L (35-129) 12/04/20 20:45 Total Creatine Kinase 114 units/L (55-170) 12/04/20 20:45 CK-MB (CK-2) 2.0 ng/mL (0.0-4.0) 12/04/20 20:45 CK-MB (CK-2) Rel Index 1.7 (0-4) 12/04/20 20:45 Troponin T < 0.010 ng/mL (0.00-0.029) 12/04/20 23:34 Total Protein 7.1 g/dL (6.3-8.2) 12/04/20 20:45 Albumin 4.1 g/dL (3.9-5) 12/04/20 20:45 Albumin/Globulin Ratio 1.4 % 12/04/20 20:45 Lipase 17 units/L (13-60) 12/04/20 20:45 Urine Color Yellow (Yellow) 12/04/20 22:16 Urine Turbidity Clear (Clear) 12/04/20 22:16 Urine pH 5.0 (5.0-7.0) 12/04/20 22:16 Ur Specific [place] 1.025 (1.003-1.030) 12/04/20 22:16 Urine Protein 30 mg/dl mg/dL (Negative) 12/04/20 22:16 Urine Glucose (UA) Neg mg/dL (Negative) 12/04/20 22:16 Urine Ketones Neg mg/dL (Negative) 12/04/20 22:16 Urine Blood Neg (Negative) 12/04/20 22:16 Urine Nitrite Neg (Negative) 12/04/20 22:16 Urine Bilirubin Neg (Negative) 12/04/20 22:16 Urine Urobilinogen 2.0 mg/dL (<2.0) 12/04/20 22:16 Ur Leukocyte Esterase Neg (Negative) 12/04/20 22:16 Urine WBC (Auto) 2.0 /HPF (0.0-6.0) 12/04/20 22:16 Urine RBC (Auto) 4.0 /HPF (0.0-6.0) 12/04/20 22:16 U Epithel Cells (Auto) < 1.0 /HPF (0-13.0) 12/04/20 22:16 Urine Mucus 2+ /HPF 12/04/20 22:16 Urine Opiates Screen Negative 12/04/20 22:16 Urine Methadone Screen Negative 12/04/20 22:16 Acetaminophen 5.0 ug/mL (10.0-30.0) L 12/05/20 05:51 Ur Barbiturates Screen Negative 12/04/20 22:16 Ur Phencyclidine Scrn Negative 12/04/20 22:16 Ur Amphetamines Screen Negative 12/04/20 22:16 U Benzodiazepines Scrn Negative 12/04/20 22:16 Urine Cocaine Screen Negative 12/04/20 22:16 U Marijuana (THC) Screen Negative 12/04/20 22:16 Drugs of Abuse Note Disclamer 12/04/20 22:16 Sandoval/IV: Voiding Method Urinal Active Medications - Current Medications Current Medications: Generic Name Dose Route Start Last Admin Trade Name Freq PRN Reason Stop Dose Admin Acetaminophen 650 mg 12/05/20 00:53 Acetaminophen 325 Mg Tab PO Q6H PRN Pain MILD(1-3)/Fever >100.5/OLIVA Acetaminophen 650 mg 12/05/20 04:52 12/05/20 05:09 Acetaminophen 650 Mg Rect Supp MI 650 mg Q4H PRN Administration Fever >101 Albuterol/Ipratropium 1 ampul 12/05/20 04:00 12/07/20 10:31 Ipratropium/Albuterol Sulfate 3 Ml Ampul.Neb IH 1 ampul Q4HRT ROSETTA Administration Enoxaparin Sodium 40 mg 12/05/20 22:00 12/06/20 21:13 Enoxaparin 40 Mg/0.4 Ml Inj SUB-Q 40 mg QDAY@2200 ROSETTA Administration Protocol Levofloxacin/Dextrose 750 mg in 150 mls @ 100 mls/hr 12/05/20 05:00 12/07/20 05:49 Levaquin 750mg/150ml IV 12/09/20 06:29 100 mls/hr Q24H ROSETTA Administration Protocol Vancomycin HCl 1,500 mg/ 530 mls @ 333.333 mls/hr 12/06/20 18:00 12/07/20 09:39 Sodium Chloride IV 333.333 mls/hr 0200,1000,1800 ROSETTA Administration Magnesium Hydroxide 30 ml 12/05/20 00:53 Magnesium Hydroxide (Mom) Oral Liqd Udc PO Q4H PRN Constipation Methylprednisolone Sodium Succinate 40 mg 12/05/20 06:00 12/07/20 05:49 Methylprednisolone Sod Succinate 40 Mg/1 Ml Inj IV 40 mg Q8HR ROSETTA Administration Morphine Sulfate 2 mg 12/05/20 00:53 Morphine 2 Mg/1 Ml Inj IV Q4H PRN Pain, Moderate (4-6) Morphine Sulfate 4 mg 12/05/20 00:53 Morphine 4 Mg/1 Ml Inj IV Q4H PRN Pain , Severe (7-10) Sodium Chloride 10 ml 12/05/20 10:00 12/06/20 21:14 Sodium Chloride 0.9% 10 Ml Flush Syringe IV 10 ml BID ROSETTA Administration Sodium Chloride 10 ml 12/05/20 00:53 12/07/20 05:50 Sodium Chloride 0.9% 10 Ml Flush Syringe IV 10 ml PRN PRN Administration LINE FLUSH Nutrition/Malnutrition Assess - Dietary Evaluation Nutrition/Malnutrition Findings: Nutrition Notes Start: 12/05/20 11:13 Freq: Status: Active Protocol: Document 12/05/20 11:14 GB (Rec: 12/05/20 11:36 GB [email or web address]) Nutrition Notes Need for Assessment generated from: MD Order,Education Initial or Follow up Assessment Current Diagnosis COPD Other Pertinent Diagnosis Respiratory distress, morbid obesity Current Diet regular Labs/Tests 12/04: glucose 126, BUN 7, creatinine 0.7 Pertinent Medications levofloxacin/D5 @100ml/hr ( 408kcal) Height 5 ft 10 in Weight 140.61 kg Lawrence Body Weight (kg) 75.45 BMI 44.4 Weight change and time frame Admit weight recorded. IBW: 75.45kg %IBW: 186% Weight Status Morbidly Obese Subjective/Other Information Per chart: confused conversation, sleeping with difficulty to arouse. Pt currently is not a candidate for education. Upon admit to floor/improvement in alertness healthy nutrition education handout will be provided. Pt on BiPaP Percent of energy/protein needs met: unable to assess at this time as pt is new and reported to be difficult to arouse. Burn Absent Trauma Absent GI Symptoms None Food Allergy No Current % PO Other Minimum of two criteria No #1 Nutrition Diagnosis Overweight/obesity Etiology BMI over 40 As Evidenced by Signs and Symptoms BMI 44.5, 186% IBW Diagnosis Progress(for reassessment Continues documentation) Is patient on ventilator? No Is Patient Ambulatory and/or Out of Bed No REE-([facility]-confined to bed) 2794.872 Kcal/Kg value to use for calculation 15 Approximate Energy Requirements Using 2109 kcal/Kg Calculation Used for Recommendations Kcal/kg Additional Notes Protein 0.6-0.8 g/kg @ 141k-113g Fluids: 1 ml/kcal or per MD Nutrition Intervention Change Diet Order: continue Nutrition Support: n/a Add Supplement/Snack (indicate name/kcal n/a /protein ) Education Handouts Provided AND: healthy nutrition therapy education at f/u Barriers to Learning Cognitive/Verbal Goal #1 PO intake of meals to be 75% or greater daily during LOS Goal #2 At follow up, provide nutrition education handout on healthy nutrition therpy Follow-Up By: 12/09/20 Additional Comments f/u: provide nutrition education, po intake
--- NOTE | 2020-12-07 15:26 | Progress Note ---
Subjective Date of service: 12/07/20 Objective Vital Signs - 12hr 12/07/20 12/07/20 12/07/20 03:38 04:33 07:53 Temperature 97.0 F L 97.8 F Pulse Rate 72 88 Pulse Rate [ 85 Bilateral Throughout] Respiratory 16 18 Rate Respiratory 14 Rate [Bilateral Throughout] Blood Pressure 122/58 Blood Pressure 113/72 [Right] O2 Sat by Pulse 93 90 Oximetry 12/07/20 11:39 Temperature 97.3 F L Pulse Rate 102 H Pulse Rate [ Bilateral Throughout] Respiratory 18 Rate Respiratory Rate [Bilateral Throughout] Blood Pressure 117/75 Blood Pressure [Right] O2 Sat by Pulse 91 Oximetry CBC and BMP: 12/06/20 04:38 12/06/20 04:38 ABG, PT/INR, D-dimer: ABG ABG pH 7.273 pH Units (7.350-7.450) L 12/05/20 13:46 ABG pCO2 94.0 mm Hg 12/05/20 13:46 ABG pO2 95.1 mm Hg (80.0-90.0) H 12/05/20 13:46 ABG O2 Saturation 96.8 % (95.0-99.0) 12/05/20 13:46 PT/INR, D-dimer PT 13.5 Sec. (12.2-14.9) 12/06/20 04:38 INR 0.93 (0.87-1.13) 12/06/20 04:38 Abnormal lab findings: Abnormal Labs 12/04/20 12/04/20 12/04/20 20:45 20:45 21:08 WBC 11.4 H MCV 97 H RDW 15.7 H Lymph % (Auto) [place] % (Auto) 10.6 H Lymph # (Auto) [place] # (Auto) 1.2 H Seg Neutrophils % Seg Neutrophils # ABG pH ABG pO2 ABG HCO3 ABG O2 Saturation ABG Base Excess ABG Carboxyhemoglobin Oxyhemoglobin Chloride 96.2 L Carbon Dioxide 35 H BUN 7 L Creatinine 0.7 L Glucose 126 H POC Glucose 115 H Acetaminophen 12/04/20 12/04/20 12/05/20 22:35 23:45 01:15 WBC MCV RDW Lymph % (Auto) [place] % (Auto) Lymph # (Auto) [place] # (Auto) Seg Neutrophils % Seg Neutrophils # ABG pH 7.156 L* 7.333 L 7.206 L ABG pO2 132.1 H 70.1 L ABG HCO3 43.1 H 38.3 H 41.7 H ABG O2 Saturation 93.3 L ABG Base Excess 9.0 H 9.1 H 9.1 H ABG Carboxyhemoglobin 8.9 H 6.7 H Oxyhemoglobin 86.7 L 86.5 L Chloride Carbon Dioxide BUN Creatinine Glucose POC Glucose Acetaminophen 12/05/20 12/05/20 12/05/20 04:25 05:51 13:46 WBC MCV RDW Lymph % (Auto) [place] % (Auto) Lymph # (Auto) [place] # (Auto) Seg Neutrophils % Seg Neutrophils # ABG pH 7.233 L 7.273 L ABG pO2 95.1 H ABG HCO3 42.0 H 42.5 H ABG O2 Saturation ABG Base Excess 10.0 H 11.1 H ABG Carboxyhemoglobin 5.4 H Oxyhemoglobin 90.7 L 93.0 L Chloride Carbon Dioxide BUN Creatinine Glucose POC Glucose Acetaminophen 5.0 L 12/06/20 12/06/20 04:38 04:38 WBC MCV 96 H RDW 15.3 H Lymph % (Auto) 9.9 L [place] % (Auto) Lymph # (Auto) 1.0 L [place] # (Auto) Seg Neutrophils % 84.3 H Seg Neutrophils # 8.2 H ABG pH ABG pO2 ABG HCO3 ABG O2 Saturation ABG Base Excess ABG Carboxyhemoglobin Oxyhemoglobin Chloride 95.3 L Carbon Dioxide 36 H BUN Creatinine 0.6 L Glucose 135 H POC Glucose Acetaminophen
[2020-12-07] MEDS: ENOXAPARIN 40 MG/0.4 ML INJ SUB-Q SCH (21:29)
[2020-12-07] MEDS ORDERED: ALBUTEROL 2.5 MG/3 ML NEBU IH PRN (22:32)
[2020-12-08] MEDS: VANCOMYCIN 1,500 MG in SODIUM CHLORIDE 0.9% 500 ML 500 ML IV SCH (01:14)
[2020-12-08] MEDS: methylPREDNISolone Sod Succinate 40 MG/1 ML INJ IV SCH ×2 (06:49→14:24)
--- NOTE | 2020-12-08 10:24 | Progress Note ---
Assessment and Plan Assessment and plan: 40-year-old -[place] male with known history of COPD presenting to the emergency room today in respiratory distress. Patient is known not to be quite compliant with his medications. Upon arrival in the emergency room oxygen saturation was about 74% on room air. He was not quite arousable upon arrival and was given some Narcan without any significant improvement. Patient was unable to give any good history most of the history was obtained from the ER staff. Work-up in the emergency room today, CT angiogram of the chest reveals:1. No CT evidence for pulmonary embolism. 2. Cholelithiasis 3. Moderate hepatic steatosis Chest x-ray: Reveals no acute findings. Labs however was significant for PCO2 of 124.7. Patient has been placed on BiPAP. During the course of this documentation, I was notified that patient has been spiking a low-grade fever. Blood cultures has been requested and patient placed on empiric IV antibiotics. 12/05: Continue supportive care, continue on BiPAP, Pulmonary consult. May need some diuresis, Continue with IMCU care, will try to obtain most recent record 12/06: Patient seen and examined resting well, no new distress but still with intermittent confusion, continue supportive care, will benefit from a sitter. Pysch consulted. 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 12/07: Patient appears more rested this morning. Discussed with case management and also with patient's pulmonary physician that he will benefit from NIV which they agree for his chronic obstructive pulmonary disease underlying breath stacking and hypercapnia. Psych consulted already 12/08: Continue supportive care, Anticipate discharge in am when placement re ctified. (1) Acute on chronic respiratory failure with hypoxia and hypercapnia Current Visit: No Status: Acute Plan to address problem: Patient has been placed on BiPAP. Will monitor ABG. Consult placed to corporate ethics officer for evaluation. (2) COPD with acute exacerbation Current Visit: No Status: Acute Plan to address problem: We will place patient on nebulizing treatments and IV steroid. We will keep O2 saturation greater or equal to 92%. (3) History of behavioral and mental health problems-Schiozophrenia Current Visit: No Status: Acute Plan to address problem: We will resume routine home medications once reconciled. (4) Morbid obesity with BMI of 40.0-44.9, adult Current Visit: No Status: Chronic Plan to address problem: Dietary consult requested For evaluation. (5) schizophrenia (6) DVT prophylaxis Current Visit: No Status: Acute Plan to address problem: Patient placed on subcutaneous Lovenox. (7) Full code status Current Visit: Yes Status: Acute Plan to address problem: Patient is full code. History Interval history: Patient seen and examined, in no acute distress more awake more rested. Hospitalist Physical - Physical exam Narrative exam: General appearance: Present: mild distress, well-nourished, obese, - EENT Eyes: Present: PERRL, EOM intact. Absent: scleral icterus ENT: hearing intact, clear oral mucosa, dentition normal - Neck Neck: Present: supple, normal ROM - Respiratory Respiratory effort: normal Respiratory: bilateral: diminished - Cardiovascular Rhythm: regular Heart Sounds: Present: S1 & S2. Absent: gallop, systolic murmur, diastolic murmur, rub, click - Extremities Extremities: no ischemia, pulses intact, pulses symmetrical, No edema, normal temperature, normal color, Full ROM Peripheral Pulses: within normal limits - Abdominal General gastrointestinal: Present: soft, non-tender, non-distended, normal bowel sounds. Absent: mass - Integumentary Integumentary: Present: clear, warm, dry. Absent: rash - Musculoskeletal Musculoskeletal: strength equal bilaterally - Psychiatric Psychiatric: cooperative - Neurologic Neurologic: CNII-XII intact, no focal deficits, moves all extremities - Constitutional Vitals: Temp Pulse Resp BP Pulse Ox 98.7 F 76 18 132/78 92 12/08/20 04:00 12/08/20 04:00 12/08/20 04:00 12/08/20 04:00 12/08/20 04:00 General appearance: Present: mild distress, well-nourished, obese, other (On BiPAP) HEART Score - HEART Score Troponin: Troponin T < 0.010 ng/mL (0.00-0.029) 12/04/20 23:34 Results - Labs CBC & Chem 7: 12/06/20 04:38 12/06/20 04:38 Labs: Laboratory Last Values WBC 9.7 K/mm3 (4.5-11.0) 12/06/20 04:38 RBC 4.64 M/mm3 (3.65-5.03) 12/06/20 04:38 Hgb 14.4 gm/dl (11.8-15.2) 12/06/20 04:38 Hct 44.5 % (35.5-45.6) 12/06/20 04:38 MCV 96 fl (84-94) H 12/06/20 04:38 MCH 31 pg (28-32) 12/06/20 04:38 MCHC 32 % (32-34) 12/06/20 04:38 RDW 15.3 % (13.2-15.2) H 12/06/20 04:38 Plt Count 198 K/mm3 (140-440) 12/06/20 04:38 Lymph % (Auto) 9.9 % (13.4-35.0) L 12/06/20 04:38 Gem % (Auto) 5.6 % (0.0-7.3) 12/06/20 04:38 Eos % (Auto) 0.0 % (0.0-4.3) 12/06/20 04:38 Baso % (Auto) 0.2 % (0.0-1.8) 12/06/20 04:38 Lymph # (Auto) 1.0 K/mm3 (1.2-5.4) L 12/06/20 04:38 Gem # (Auto) 0.5 K/mm3 (0.0-0.8) 12/06/20 04:38 Eos # (Auto) 0.0 K/mm3 (0.0-0.4) 12/06/20 04:38 Baso # (Auto) 0.0 K/mm3 (0.0-0.1) 12/06/20 04:38 Seg Neutrophils % 84.3 % (40.0-70.0) H 12/06/20 04:38 Seg Neutrophils # 8.2 K/mm3 (1.8-7.7) H 12/06/20 04:38 PT 13.5 Sec. (12.2-14.9) 12/06/20 04:38 INR 0.93 (0.87-1.13) 12/06/20 04:38 APTT 26.4 Sec. (24.2-36.6) 12/04/20 20:45 ABG pH 7.273 pH Units (7.350-7.450) L 12/05/20 13:46 ABG pCO2 94.0 mm Hg 12/05/20 13:46 ABG pO2 95.1 mm Hg (80.0-90.0) H 12/05/20 13:46 ABG HCO3 42.5 mmol/L (20.0-26.0) H 12/05/20 13:46 ABG O2 Saturation 96.8 % (95.0-99.0) 12/05/20 13:46 ABG O2 Content 19.4 (0.0-44) 12/05/20 13:46 ABG Base Excess 11.1 mmol/L (-2.0-3.0) H 12/05/20 13:46 ABG Hemoglobin 14.8 gm/dl (14.0-18.0) 12/05/20 13:46 ABG Carboxyhemoglobin 3.4 % (0.0-5.0) 12/05/20 13:46 ABG Methemoglobin 0.5 % (0.0-1.5) 12/05/20 13:46 Oxyhemoglobin 93.0 % (95.0-99.0) L 12/05/20 13:46 FiO2 40 % 12/05/20 13:46 Sodium 144 mmol/L (137-145) 12/06/20 04:38 Potassium 4.9 mmol/L (3.6-5.0) 12/06/20 04:38 Chloride 95.3 mmol/L (98-107) L 12/06/20 04:38 Carbon Dioxide 36 mmol/L (22-30) H 12/06/20 04:38 Anion Gap 18 mmol/L 12/06/20 04:38 BUN 12 mg/dL (9-20) 12/06/20 04:38 Creatinine 0.6 mg/dL (0.8-1.3) L 12/06/20 04:38 Estimated GFR > 60 ml/min 12/06/20 04:38 BUN/Creatinine Ratio 20 % 12/06/20 04:38 Glucose 135 mg/dL (75-100) H 12/06/20 04:38 POC Glucose 115 mg/dL (70-105) H 12/04/20 21:08 Lactic Acid 0.80 mmol/L (0.7-2.0) 12/04/20 20:45 Calcium 9.0 mg/dL (8.4-10.2) 12/06/20 04:38 Magnesium 2.20 mg/dL (1.7-2.3) 12/04/20 20:45 Total Bilirubin 0.20 mg/dL (0.1-1.2) 12/04/20 20:45 AST 16 units/L (5-40) 12/04/20 20:45 ALT 19 units/L (7-56) 12/04/20 20:45 Alkaline Phosphatase 95 units/L (35-129) 12/04/20 20:45 Total Creatine Kinase 114 units/L (55-170) 12/04/20 20:45 CK-MB (CK-2) 2.0 ng/mL (0.0-4.0) 12/04/20 20:45 CK-MB (CK-2) Rel Index 1.7 (0-4) 12/04/20 20:45 Troponin T < 0.010 ng/mL (0.00-0.029) 12/04/20 23:34 Total Protein 7.1 g/dL (6.3-8.2) 12/04/20 20:45 Albumin 4.1 g/dL (3.9-5) 12/04/20 20:45 Albumin/Globulin Ratio 1.4 % 12/04/20 20:45 Lipase 17 units/L (13-60) 12/04/20 20:45 Urine Color Yellow (Yellow) 12/04/20 22:16 Urine Turbidity Clear (Clear) 12/04/20 22:16 Urine pH 5.0 (5.0-7.0) 12/04/20 22:16 Ur Specific [place] 1.025 (1.003-1.030) 12/04/20 22:16 Urine Protein 30 mg/dl mg/dL (Negative) 12/04/20 22:16 Urine Glucose (UA) Neg mg/dL (Negative) 12/04/20 22:16 Urine Ketones Neg mg/dL (Negative) 12/04/20 22:16 Urine Blood Neg (Negative) 12/04/20 22:16 Urine Nitrite Neg (Negative) 12/04/20 22:16 Urine Bilirubin Neg (Negative) 12/04/20 22:16 Urine Urobilinogen 2.0 mg/dL (<2.0) 12/04/20 22:16 Ur Leukocyte Esterase Neg (Negative) 12/04/20 22:16 Urine WBC (Auto) 2.0 /HPF (0.0-6.0) 12/04/20 22:16 Urine RBC (Auto) 4.0 /HPF (0.0-6.0) 12/04/20 22:16 U Epithel Cells (Auto) < 1.0 /HPF (0-13.0) 12/04/20 22:16 Urine Mucus 2+ /HPF 12/04/20 22:16 Vancomycin Trough 11.7 ug/mL (5.0-20.0) 12/07/20 16:46 Urine Opiates Screen Negative 12/04/20 22:16 Urine Methadone Screen Negative 12/04/20 22:16 Acetaminophen 5.0 ug/mL (10.0-30.0) L 12/05/20 05:51 Ur Barbiturates Screen Negative 12/04/20 22:16 Ur Phencyclidine Scrn Negative 12/04/20 22:16 Ur Amphetamines Screen Negative 12/04/20 22:16 U Benzodiazepines Scrn Negative 12/04/20 22:16 Urine Cocaine Screen Negative 12/04/20 22:16 U Marijuana (THC) Screen Negative 12/04/20 22:16 Drugs of Abuse Note Disclamer 12/04/20 22:16 Microbiology: Microbiology 12/04/20 20:45 Peripheral/Venous Blood Culture - Preliminary Coag Negative Staphylococcus 12/04/20 20:45 Peripheral/Venous Blood Culture - Preliminary Coag Negative Staphylococcus 12/04/20 22:16 Urine,Clean Catch Urine Culture - Preliminary NO GROWTH AFTER 24 HOURS Sandoval/IV: Voiding Method Urinal Active Medications - Current Medications Current Medications: Generic Name Dose Route Start Last Admin Trade Name Freq PRN Reason Stop Dose Admin Acetaminophen 650 mg 12/05/20 00:53 Acetaminophen 325 Mg Tab PO Q6H PRN Pain MILD(1-3)/Fever >100.5/OLIVA Acetaminophen 650 mg 12/05/20 04:52 12/05/20 05:09 Acetaminophen 650 Mg Rect Supp NC 650 mg Q4H PRN Administration Fever >101 Albuterol 2.5 mg 12/07/20 22:32 Albuterol 2.5 Mg/3 Ml Nebu IH Q4HRT PRN Shortness Of Breath Enoxaparin Sodium 40 mg 12/05/20 22:00 12/07/20 21:29 Enoxaparin 40 Mg/0.4 Ml Inj SUB-Q 40 mg QDAY@2200 ROSETTA Administration Protocol Levofloxacin/Dextrose 750 mg in 150 mls @ 100 mls/hr 12/05/20 05:00 12/08/20 06:49 Levaquin 750mg/150ml IV 12/09/20 06:29 100 mls/hr Q24H ROSETTA Administration Protocol Magnesium Hydroxide 30 ml 12/05/20 00:53 Magnesium Hydroxide (Mom) Oral Liqd Udc PO Q4H PRN Constipation Methylprednisolone Sodium Succinate 40 mg 12/05/20 06:00 12/08/20 06:49 Methylprednisolone Sod Succinate 40 Mg/1 Ml Inj IV 40 mg Q8HR ROSETTA Administration Morphine Sulfate 2 mg 12/05/20 00:53 Morphine 2 Mg/1 Ml Inj IV Q4H PRN Pain, Moderate (4-6) Morphine Sulfate 4 mg 12/05/20 00:53 Morphine 4 Mg/1 Ml Inj IV Q4H PRN Pain , Severe (7-10) Sodium Chloride 10 ml 12/05/20 10:00 12/07/20 21:29 Sodium Chloride 0.9% 10 Ml Flush Syringe IV 10 ml BID ROSETTA Administration Sodium Chloride 10 ml 12/05/20 00:53 12/07/20 05:50 Sodium Chloride 0.9% 10 Ml Flush Syringe IV 10 ml PRN PRN Administration LINE FLUSH Nutrition/Malnutrition Assess - Dietary Evaluation Nutrition/Malnutrition Findings: Nutrition Notes Start: 12/05/20 11:13 Freq: Status: Active Protocol: Document 12/05/20 11:14 GB (Rec: 12/05/20 11:36 GB [id number]) Nutrition Notes Need for Assessment generated from: MD Order,Education Initial or Follow up Assessment Current Diagnosis COPD Other Pertinent Diagnosis Respiratory distress, morbid obesity Current Diet regular Labs/Tests 12/04: glucose 126, BUN 7, creatinine 0.7 Pertinent Medications levofloxacin/D5 @100ml/hr ( 408kcal) Height 5 ft 10 in Weight 140.61 kg [place] Body Weight (kg) 75.45 BMI 44.4 Weight change and time frame Admit weight recorded. IBW: 75.45kg %IBW: 186% Weight Status Morbidly Obese Subjective/Other Information Per chart: confused conversation, sleeping with difficulty to arouse. Pt currently is not a candidate for education. Upon admit to floor/improvement in alertness healthy nutrition education handout will be provided. Pt on BiPaP Percent of energy/protein needs met: unable to assess at this time as pt is new and reported to be difficult to arouse. Burn Absent Trauma Absent GI Symptoms None Food Allergy No Current % PO Other Minimum of two criteria No #1 Nutrition Diagnosis Overweight/obesity Etiology BMI over 40 As Evidenced by Signs and Symptoms BMI 44.5, 186% IBW Diagnosis Progress(for reassessment Continues documentation) Is patient on ventilator? No Is Patient Ambulatory and/or Out of Bed No REE-([facility]-confined to bed) 2794.872 Kcal/Kg value to use for calculation 15 Approximate Energy Requirements Using 2109 kcal/Kg Calculation Used for Recommendations Kcal/kg Additional Notes Protein 0.6-0.8 g/kg @ 141k-113g Fluids: 1 ml/kcal or per MD Nutrition Intervention Change Diet Order: continue Nutrition Support: n/a Add Supplement/Snack (indicate name/kcal n/a /protein ) Education Handouts Provided AND: healthy nutrition therapy education at f/u Barriers to Learning Cognitive/Verbal Goal #1 PO intake of meals to be 75% or greater daily during LOS Goal #2 At follow up, provide nutrition education handout on healthy nutrition therpy Follow-Up By: 12/09/20 Additional Comments f/u: provide nutrition education, po intake
--- NOTE | 2020-12-08 10:36 | Consultation ---
History of Present Illness - Reason for Consult Consult date: 12/08/20 Reason for consult: SChizophrenia - Chief Complaint Chief complaint: Respiratory distress - History of Present Psychiatric Illness Phong Nelson is a 40 year old male with history of schizophrenia. In my interview with the patient, he states he stopped taking psychotropic medication for a couple of weeks because he ran out of meds. The patient is unable to recall what medications he was on and he is also unable to recall the name of his psychiatrist. The patient reports doing well. He denies any current suicidal/homicidal ideation and denies hallucinations. PAST PSYCHIATRIC HISTORY Diagnoses: schizophrenia Suicide attempts or Self-harm behavior: Yes Prior psychiatric hospitalizations:Yes Substance Abuse history:Denies Previous psychiatric medications tried: Unable to recall Outpatient treatment: Unknown PAST MEDICAL HISTORY: Family Psychiatric History: None reported or documented SOCIAL HISTORY Marital Status: Unknown Living Arrangements: Lives in a nursing home Employment Status: disabled- SSI Access to guns/weapons: None reported Education: 10th grade History of Abuse: None reported Legal History: Ubknown REVIEW OF SYSTEMS Constitutional: Negative for weight loss ENT: Negative for stridor Respiratory: Negative for cough or hemoptysis All other systems reviewed and are negative MENTAL STATUS EXAMINATION General Appearance: Dressed appropriately. Behavior: Confused Mood:" ok" Affect: Congruent with stated mood Speech: Normal tone, and pace Thought Process: Not suicidal Thought Content: Goal directed Suicidal Ideation: Denies Homicidal Ideation: Denies Hallucinations: Denies Delusions: None Insight and Judgment: Limited Memory/Cognition: Limited ASSESSMENT Schizophrenia -F20.9 Treatment Plan Seroquel 100 mg po QHS The patient to comply with previously prescribed medications Risks, benefits and alternatives of medications discussed with the patient, questions answered and consent obtained from patient. PSYCHOTHERAPY: Supportive psychotherapy provided MEDICAL: Per primary team DELIRIUM PRECAUTIONS: Please re-orient patient frequently, keep lights on during the day, and minimize benzodiazepines and opiates as these medications could worsen patient's confusion. FILLER AND TRIMMER: Defer to primary DISPOSITION: Do not recommend acute inpatient psychiatric hospitalization at this time. FOLLOW-UP: Will sign off. Case staffed with Dr. Betancur Please contact with any questions and/or concerns. Thank you for the consult. Medications and Allergies Medications and Allergies Allergies Allergy/AdvReac Type Severity Reaction Status Date / Time Sulfa (Sulfonamide Allergy Unknown Verified 12/05/20 23:59 Antibiotics) Home Medications Medication Instructions Recorded Confirmed Last Taken Type Benztropine [Cogentin] 2 mg PO DAILY #30 10/18/20 12/05/20 Unknown Rx oxyCODONE /ACETAMINOPHEN [Percocet 1 tab PO Q6H PRN #12 tablet 10/18/20 12/05/20 Unknown Rx 5/325 mg] traZODone [Desyrel] 100 mg PO QHS #1 tablet 10/18/20 12/05/20 Unknown Rx Albuterol Sulfate [Albuterol 0.63% 0.63 mg IH TID PRN #90 vial 12/07/20 Unknown Rx NEBS] Albuterol Sulfate [Proventil Hfa] 2 puff IH Q4HR PRN #1 hfa.aer.ad 12/07/20 Unknown Rx Budesonide/Formoterol Fumarate 2 puff IH BID #1 hfa.aer.ad 12/07/20 Unknown Rx [Symbicort 160-4.5 Mcg Inhaler] Ipratropium/Albuterol Sulfate 1 ampul IH TIDRT #50 ampul.neb 12/07/20 Unknown Rx [DUONEB *Not for PRN Use*] OLANzapine [Zyprexa] 10 mg PO DAILY 30 Days #30 12/07/20 Unknown Rx PARoxetine [Paxil] 10 mg PO DAILY #30 tablet 12/07/20 Unknown Rx Prednisone [predniSONE 10 mg 10 mg PO .TAPER #1 tab.ds.pk 12/07/20 Unknown Rx (6-Day Pack, 21 Tabs)] risperiDONE [RisperDAL] 1 mg PO QAM #30 tablet 12/07/20 Unknown Rx Active Meds: Active Medications Acetaminophen (Acetaminophen 325 Mg Tab) 650 mg PO Q6H PRN PRN Reason: Pain MILD(1-3)/Fever >100.5/OLIVA Acetaminophen (Acetaminophen 650 Mg Rect Supp) 650 mg DE Q4H PRN PRN Reason: Fever >101 Last Admin: 12/05/20 05:09 Dose: 650 mg Documented by: Albuterol (Albuterol 2.5 Mg/3 Ml Nebu) 2.5 mg IH Q4HRT PRN PRN Reason: Shortness Of Breath Enoxaparin Sodium (Enoxaparin 40 Mg/0.4 Ml Inj) 40 mg SUB-Q QDAY@2200 ROSETTA; Protocol Last Admin: 12/07/20 21:29 Dose: 40 mg Documented by: Levofloxacin/Dextrose (Levaquin 750mg/150ml) 750 mg in 150 mls @ 100 mls/hr IV Q24H ROSETTA; Protocol Stop: 12/09/20 06:29 Last Admin: 12/08/20 06:49 Dose: 100 mls/hr Documented by: Magnesium Hydroxide (Magnesium Hydroxide (Mom) Oral Liqd Udc) 30 ml PO Q4H PRN PRN Reason: Constipation Methylprednisolone Sodium Succinate (Methylprednisolone Sod Succinate 40 Mg/1 Ml Inj) 40 mg IV Q8HR ROSETTA Last Admin: 12/08/20 06:49 Dose: 40 mg Documented by: Morphine Sulfate (Morphine 2 Mg/1 Ml Inj) 2 mg IV Q4H PRN PRN Reason: Pain, Moderate (4-6) Morphine Sulfate (Morphine 4 Mg/1 Ml Inj) 4 mg IV Q4H PRN PRN Reason: Pain , Severe (7-10) Sodium Chloride (Sodium Chloride 0.9% 10 Ml Flush Syringe) 10 ml IV BID [facility] Last Admin: 12/07/20 21:29 Dose: 10 ml Documented by: Sodium Chloride (Sodium Chloride 0.9% 10 Ml Flush Syringe) 10 ml IV PRN PRN PRN Reason: LINE FLUSH Last Admin: 12/07/20 05:50 Dose: 10 ml Documented by: Mental Status Exam - Vital signs Last Vital Signs Temp 98.7 F 12/08/20 04:00 Pulse 76 12/08/20 04:00 Resp 18 12/08/20 04:00 BP 132/78 12/08/20 04:00 Pulse Ox 92 12/08/20 04:00 Results Result Diagrams: 12/06/20 04:38 12/06/20 04:38 All other labs normal.
[2020-12-08] MEDS ORDERED: LORazepam 2 MG/ML VIAL IV ONE (14:12)
--- NOTE | 2020-12-08 15:09 | Progress Note ---
Subjective Date of service: 12/08/20 Objective Vital Signs - 12hr 12/08/20 12/08/20 12/08/20 03:27 04:00 10:00 Temperature 98.7 F 98.7 F Pulse Rate 76 76 69 Respiratory 18 18 Rate Blood Pressure 132/78 Blood Pressure 132/78 [Right] O2 Sat by Pulse 90 92 93 Oximetry CBC and BMP: 12/06/20 04:38 12/06/20 04:38 ABG, PT/INR, D-dimer: ABG ABG pH 7.273 pH Units (7.350-7.450) L 12/05/20 13:46 ABG pCO2 94.0 mm Hg 12/05/20 13:46 ABG pO2 95.1 mm Hg (80.0-90.0) H 12/05/20 13:46 ABG O2 Saturation 96.8 % (95.0-99.0) 12/05/20 13:46 PT/INR, D-dimer PT 13.5 Sec. (12.2-14.9) 12/06/20 04:38 INR 0.93 (0.87-1.13) 12/06/20 04:38 Abnormal lab findings: Abnormal Labs 12/04/20 12/04/20 12/04/20 20:45 20:45 21:08 WBC 11.4 H MCV 97 H RDW 15.7 H Lymph % (Auto) [place] % (Auto) 10.6 H Lymph # (Auto) [place] # (Auto) 1.2 H Seg Neutrophils % Seg Neutrophils # ABG pH ABG pO2 ABG HCO3 ABG O2 Saturation ABG Base Excess ABG Carboxyhemoglobin Oxyhemoglobin Chloride 96.2 L Carbon Dioxide 35 H BUN 7 L Creatinine 0.7 L Glucose 126 H POC Glucose 115 H Acetaminophen 12/04/20 12/04/20 12/05/20 22:35 23:45 01:15 WBC MCV RDW Lymph % (Auto) [place] % (Auto) Lymph # (Auto) [place] # (Auto) Seg Neutrophils % Seg Neutrophils # ABG pH 7.156 L* 7.333 L 7.206 L ABG pO2 132.1 H 70.1 L ABG HCO3 43.1 H 38.3 H 41.7 H ABG O2 Saturation 93.3 L ABG Base Excess 9.0 H 9.1 H 9.1 H ABG Carboxyhemoglobin 8.9 H 6.7 H Oxyhemoglobin 86.7 L 86.5 L Chloride Carbon Dioxide BUN Creatinine Glucose POC Glucose Acetaminophen 12/05/20 12/05/20 12/05/20 04:25 05:51 13:46 WBC MCV RDW Lymph % (Auto) [place] % (Auto) Lymph # (Auto) [place] # (Auto) Seg Neutrophils % Seg Neutrophils # ABG pH 7.233 L 7.273 L ABG pO2 95.1 H ABG HCO3 42.0 H 42.5 H ABG O2 Saturation ABG Base Excess 10.0 H 11.1 H ABG Carboxyhemoglobin 5.4 H Oxyhemoglobin 90.7 L 93.0 L Chloride Carbon Dioxide BUN Creatinine Glucose POC Glucose Acetaminophen 5.0 L 12/06/20 12/06/20 04:38 04:38 WBC MCV 96 H RDW 15.3 H Lymph % (Auto) 9.9 L [place] % (Auto) Lymph # (Auto) 1.0 L [place] # (Auto) Seg Neutrophils % 84.3 H Seg Neutrophils # 8.2 H ABG pH ABG pO2 ABG HCO3 ABG O2 Saturation ABG Base Excess ABG Carboxyhemoglobin Oxyhemoglobin Chloride 95.3 L Carbon Dioxide 36 H BUN Creatinine 0.6 L Glucose 135 H POC Glucose Acetaminophen
[2020-12-08] MEDS: BENZTROPINE 2 MG TAB PO SCH (17:49)
[2020-12-08] MEDS: PARoxetine 10 MG TAB PO SCH (17:50)
[2020-12-08] MEDS ORDERED: QUEtiapine 100 MG TAB PO SCH (22:00)
[2020-12-09] MEDS: methylPREDNISolone Sod Succinate 40 MG/1 ML INJ IV SCH ×3 (00:04→13:45)
[2020-12-09] MEDS: risperiDONE 1 MG TAB PO SCH ×2 (00:04→09:47)
[2020-12-09] MEDS: ENOXAPARIN 40 MG/0.4 ML INJ SUB-Q SCH (00:05)
[2020-12-09] MEDS: PARoxetine 10 MG TAB PO SCH (09:47)
[2020-12-09] MEDS: BENZTROPINE 2 MG TAB PO SCH (09:48)
--- NOTE | 2020-12-09 13:01 | Vascular Lab Report ---
DUPLEX DOPPLER LOWER EXTREMITY VEINS, BILATERAL INDICATION / CLINICAL INFORMATION: Lower extremity swelling. TECHNIQUE: Duplex doppler imaging was performed through the veins of both lower extremities using shy ous compression and other maneuvers. COMPARISON: None available. FINDINGS: RIGHT COMMON FEMORAL VEIN: Negative. RIGHT FEMORAL VEIN: Negative. RIGHT POPLITEAL VEIN: Negative. RIGHT CALF VEINS: Negative. LEFT COMMON FEMORAL VEIN: Negative. LEFT FEMORAL VEIN: Negative. LEFT POPLITEAL VEIN: Negative. LEFT CALF VEINS: Negative. ADDITIONAL FINDINGS: None. IMPRESSION: 1. No sonographic evidence for DVT in either lower extremity. Signer Name: Silvia Hurley MD Signed: 12/09/2020 12:56 PM Workstation Name: [id number]
--- NOTE | 2020-12-09 14:42 | Consultation ---
DATE OF CONSULTATION: 12/05/2020 PULMONARY CRITICAL CARE CONSULT NOTE CONSULTING PHYSICIAN: Dr. Obinna Tobias. REASON FOR CONSULTATION: Hypercapnic respiratory failure. CHIEF COMPLAINT AND HISTORY OF PRESENT ILLNESS: As follows: The patient is a now 40-year-old morbidly obese male with past medical history significant for a diagnosis of COPD, presented to the Emergency Room in respiratory distress with shortness of breath, hypoxemia. He was also altered with altered mental status, difficult to arouse. He was given Narcan without improvement, unable to give much of the history. He ultimately got placed on bilevel positive airway pressure ventilation therapy and slowly has begun to have some increased alertness. Of note, his pCO2 was 125 at presentation in the Emergency Room. We are asked to assist with management. When I stopped by to see him, he remained on continuous BiPAP machine. I believe his BiPAP settings at that time were IPAP of 20, EPAP of 10 and set rate I believe was around 14. He denied any chest pain. He was still a little bit encephalopathic. There has been no nausea or vomiting. With regards to tobacco use/abuse, the patient was noncommittal, but the records indicate a history of tobacco use. This really is as much of the history of presentation as I have. PAST MEDICAL HISTORY: COPD, morbid obesity, schizophrenia, and bipolar disorder. PAST SURGICAL HISTORY: None. MEDICATIONS: He was on at the time I stopped by to see him were reviewed. Pertinent medications included the following according to the medication administration record, Tylenol 650 mg p.o. q. 6 hours p.r.n. mild pain or fevers, DuoNeb nebulizer treatments nebulized q. 4 hours, Lovenox 40 mg subQ daily, Levaquin 750 mg IV daily, Solu-Medrol 40 mg IV q. 8 hours, morphine sulfate 2 mg IV q. 4 hours p.r.n. moderate pain and 4 mg IV q. 4 hours p.r.n. severe pain. ALLERGIES: TO SULFA ANTIBIOTICS. The nature of this allergy is unknown. DIET: Morbidly obese gentleman, acute weight loss or gain history is unknown. FAMILY AND SOCIAL HISTORY: As far as I can tell, the patient lives in the community. He is described as a daily smoker by the records, alcohol, illicit drug use or abuse history unknown. FAMILY HISTORY: Otherwise unknown or unobtainable. REVIEW OF SYSTEMS: Difficult to obtain secondary to patient's medical and mental condition. Since he has been in the Emergency Room, no gross hematochezia or melena, no gross hematuria, no hematemesis, no emesis, no bloody tracheal secretions, no hemoptysis as he is saying and no witnessed seizures. Review of systems otherwise unobtainable or as in the body of history above. PHYSICAL EXAMINATION: VITAL SIGNS: On presentation, he had a low-grade fever, temperature 100.3 degrees Fahrenheit, pulse of 107, respiratory rate of 20, blood pressure 126/81, O2 sats were 97%, inspired oxygen concentration at that time was not recorded. When I saw him, the O2 sats were 98%. GENERAL: He is a young, morbidly obese male. Normocephalic, atraumatic on the BiPAP machine with mildly increased respiratory effort at rest on the machine. HEAD, EYES, EARS, NOSE AND THROAT: Anicteric. No conjunctival erythema. Oropharynx could not be evaluated. He had the BiPAP full face mask on. He has a large neck circumference. No thyromegaly. Grossly, there were no palpable lymph nodes in the supraclavicular or submandibular lymph node chains. No gross jugular venous distention. LUNGS: Auscultation of both lung castro significant for diminished bilateral breath sounds, slightly prolonged expiratory phase. No active wheezing. HEART: Sounds 1 and 2 are heard, regular rate and rhythm at the time of my evaluation without overt rubs or murmurs. ABDOMEN: Soft, full, protuberant. Bowel sounds are positive, nontender, no palpable hepatosplenomegaly. EXTREMITIES: Without overt digital clubbing or cyanosis, no pedal edema. Pedal pulses were 2+ bilaterally. NEUROLOGIC: Pupils were equal, round, about 3 mm, reactive to light. Extraocular muscle movements were intact. He moves all 4 extremities spontaneously. SKIN: Normal turgor in the areas examined without overt cellulitis or rash. Please see the wound care nurses' notes for full description of his skin. PSYCHIATRIC: Mood and affect were flat essentially. He was cooperative. He had poor insight and judgment at the time of my examination. LABORATORY DATA: From my review are as follows: Admission white cell count was 11,400 with hemoglobin of 14.2, hematocrit of 44.9, platelet count of 204. No manual differential. INR was within normal limits essentially. Arterial blood gas at presentation showed a pH of 7.33, pCO2 of 74, pO2 of 132 on 40% FiO2. Repeat blood gas soon thereafter revealed a pH of 7.21 with a pCO2 of 108 and a pO2 of 70 on 40% FiO2, presumably on the above-mentioned BiPAP settings. Serum sodium was 140 at presentation, potassium was 4.2, chloride was 96, bicarbonate 35, BUN 7, creatinine 0.7, glucose of 126. Lactic acid level within normal limits. Liver function test within normal limits. Troponin within normal limits. CK, CK-MB within normal limits. Lipase within normal limits. Urinalysis was done and negative for nitrites and leukocyte esterase and essentially unremarkable. Urine drug screen was presumptive negative. Tylenol level was low. Two sets of blood culture at the time of my evaluation, no growth to date. He had a chest x-ray done on admission essentially shows evidence of hyperinflation. Based on the hyperinflation, there is borderline to gross cardiomegaly, no gross pneumothorax, no gross bony fractures, no acute findings really. A CT scan of the head was also done and it was read as no acute process, no focal hemorrhage, mass, or hydrocephalus. A CT angiogram of the chest was also done. Unfortunately, I was unable to pull up the imaging, but I did review the reports. No CT evidence of pulmonary embolism. It showed cholelithiasis and moderate hepatic steatosis. ASSESSMENT: 1. Acute on chronic hypoxemic and hypercapnic respiratory failure. 2. Acute exacerbation of chronic obstructive pulmonary disease. 3. Likely obstructive sleep apnea/obesity hypoventilation syndrome. 4. Acute toxic metabolic encephalopathy. 5. Morbid obesity. 6. History of schizophrenia. 7. History of bipolar disorder. 8. Leukocytosis at presentation. PLAN: I have given instructions to the respiratory therapist to increase the set minute ventilation, increase the rate initially to 25 per minute, repeat the arterial blood gas in the morning despite the significant hypercapnia. He is relatively improved from a mental status standpoint and hemodynamically stable at this time. I will complete a venous thromboembolic disorder workup with bilateral lower extremity Dopplers in light of a clear chest x-ray essentially. Oxygen will be weaned to keep sats greater than or equal to about 88-90% acutely with restrictive oxygen therapies. I do agree with systemic steroids. We will continue long and short-acting bronchodilators. We will continue his psychoactive medications. I will defer that to the attending physician. He will be placed on GI prophylaxis. He is appropriately on DVT prophylaxis. Flu and pneumonia vaccination will be addressed per protocol. Thank you very much for the consult. We will leave him on continuous BiPAP therapy for now. He is critically ill on life-sustaining interventions including mechanical ventilatory support/continuous noninvasive ventilation, at very high risk of from cardiopulmonary system decompensation. At this time, I spent about 35-40 minutes of critical care time without overlap and excluding any procedural time that may be necessary. TID: [id number] RECEIPT: [id number] DIANN/MARIANA
[2020-12-09 16:35] VITALS: BP 120/81
--- NOTE | 2020-12-11 14:32 | Electrocardiograph Report ---
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
== END 2020-12-09 18:52 | disposition home health service (06) | DRG 189 ==
LOC: ED 19:45 → IMCU 23:26 → CC1 12-05 01:11 → IMCU 12-05 01:13 → 4A 12-06 10:50
PROVIDERS: ADMIT Internal Medicine Geriatric Medicine; ATTEND Internal Medicine
PROC: 5A09557 Assistance with Respiratory Ventilation, Greater than 96 Consecutive Hours, Continuous Positive Airway Pressure (ICD-10-PCS; 2020-12-04)
PROC: 4A033R1 Measurement of Arterial Saturation, Peripheral, Percutaneous Approach (ICD-10-PCS; principal; 2020-12-05)
DX: J96.21 Acute and chronic respiratory failure with hypoxia (principal); J44.1 Chronic obstructive pulmonary disease with (acute) exacerbation; Z68.41 Body mass index [BMI] 40.0-44.9, adult; E66.01 Morbid (severe) obesity due to excess calories; J96.22 Acute and chronic respiratory failure with hypercapnia; F20.9 Schizophrenia, unspecified; Z87.891 Personal history of nicotine dependence; F31.9 Bipolar disorder, unspecified; K80.20 Calculus of gallbladder without cholecystitis without obstruction; K76.0 Fatty (change of) liver, not elsewhere classified; Z88.2 Allergy status to sulfonamides
CPT/HCPCS: 36415; 36600; 70450; 71045; 71275; 80048; 80053; 80202; 80307; 80320; 81001; 82140; 82550; 82553; 82803; 82962; 83690; 83735; 84484; 85025; 85379; 85610; 85730; 87040; 87086; 93005; 93970; 94640; 94660; 94760; G0378; G0480; J1650; J1956; J2060; J2310; J2405; J2920; J3370; J7040; Q9967